=== PATIENT | male | born 1955 | race Asian ===

== ENCOUNTER 2020-01-23 11:55 | Outpatient (REF) | payer MEDICAID, SELFPAY ==
[2020-01-23 13:48] LABS: MANUAL DIFF FLAG NO
[2020-01-23 13:58] LABS: Basophils Absolute Auto 0.1 X10*3/uL (0.0-0.2); Basophils Percent Auto 0.8 % (0-2); Eosinophils Absolute Auto 0.2 X10*3/uL (0.0-0.4); Eosinophils Percent Auto 3.3 % (0-4); Hematocrit 46.4 % (42-52); Hemoglobin 16.5 g/dl (14.0-18.0); Imm Gran Abs Auto 0.02 X10*3/uL (0.00-0.03); Imm Gran Pct Auto 0.3 % (0.0-0.4); Lymphocytes Absolute Auto 1.7 X10*3/uL (1.2-4.9); Lymphocytes Percent Auto 23.2 % (20-40); Mean Corpuscular HGB Conc 35.6 g/dl (31.0-36.0); Mean Corpuscular Hemoglobin 32.9 pg (27.0-33.0); Mean Corpuscular Volume 92.6 fL (80-98); Monocytes Absolute Auto 0.7 X10*3/uL (0.1-1.2); Neutrophils Absolute Auto 4.6 X10*3/uL (2.0-8.3); Neutrophils Percent Auto 62.4 % (45-73); Platelet Count 217 X10*3/uL (160-400); Red Blood Count 5.01 X10*6/uL (4.60-5.80); Red Cell Distribution Width 13.3 % (11.0-16.0); White Blood Count 7.4 X10*3/uL (4.8-10.8)
[2020-01-23 14:39] LABS: Alanine Aminotransferase 35 U/L (0-40); Albumin Level 4.4 g/dL (3.5-5.0); Alkaline Phosphatase 49 U/L (39-117); Anion Gap 12 (12-20); Aspartate Amino Transferase 22 U/L (5-37); Bilirubin Total 0.4 mg/dL (0.0-1.0); Blood Urea Nitrogen 17 mg/dL (9-16); C Reactive Protein 0.29 mg/dL (< or = 0.50); Calcium 8.8 mg/dL (8.4-10.2); Carbon Dioxide 25 mmol/L (22-29); Chloride 107 mmol/L (96-108); Estimated Glomerular Filt Rate > 60; Glucose Random 89 mg/dL (60-115); Potassium 4.2 mmol/l (3.3-5.1); Sodium 140 mmol/L (135-145); Total Protein 7.3 g/dL (6.5-8.0)
[2020-01-23 15:12] LABS: Erythrocyte Sedimentation Rate 2 MM/HR (0-15)
== END 2020-01-23 11:56 | disposition home or self-care (01) ==
LOC: HO.LAB 11:55
PROVIDERS: PCP Internal Medicine; Visit Provider Student in an Organized Health Care Education/Training Program
DX: M06.00 Rheumatoid arthritis without rheumatoid factor, unspecified site (principal); Z79.899 Other long term (current) drug therapy
CPT/HCPCS: 36415; 80053; 85025; 85652; 86140

== ENCOUNTER → 2020-02-21 08:24 | Outpatient (BNVA) | payer MEDICAID, SELFPAY | PROVIDERS: PCP Internal Medicine; Referring Provider Internal Medicine; Visit Provider Student in an Organized Health Care Education/Training Program | DX: M06.00 Rheumatoid arthritis without rheumatoid factor, unspecified site (principal); Z79.899 Other long term (current) drug therapy | CPT/HCPCS: 99212 ==

== ENCOUNTER 2020-06-15 08:28 | Outpatient (REF) | payer MEDICAID, SELFPAY ==
[2020-06-15 09:36] LABS: MANUAL DIFF FLAG NO
[2020-06-15 09:38] LABS: Basophils Absolute Auto 0.1 X10*3/uL (0.0-0.2); Basophils Percent Auto 1.1 % (0-2); Eosinophils Absolute Auto 0.2 X10*3/uL (0.0-0.4); Eosinophils Percent Auto 3.1 % (0-4); Hematocrit 46.5 % (42-52); Hemoglobin 16.6 g/dl (14.0-18.0); Imm Gran Abs Auto 0.02 X10*3/uL (0.00-0.03); Imm Gran Pct Auto 0.3 % (0.0-0.4); Lymphocytes Absolute Auto 1.8 X10*3/uL (1.2-4.9); Lymphocytes Percent Auto 27.3 % (20-40); Mean Corpuscular HGB Conc 35.7 g/dl (31.0-36.0); Mean Corpuscular Hemoglobin 33.1 pg (27.0-33.0); Mean Corpuscular Volume 92.6 fL (80-98); Mean Platelet Volume 11.1 fL (9.4-12.4); Monocytes Absolute Auto 0.5 X10*3/uL (0.1-1.2); Monocytes Percent Auto 7.8 % (2-11); Neutrophils Absolute Auto 3.9 X10*3/uL (2.0-8.3); Neutrophils Percent Auto 60.4 % (45-73); Platelet Count 190 X10*3/uL (160-400); Red Blood Count 5.02 X10*6/uL (4.60-5.80); Red Cell Distribution Width 13.2 % (11.0-16.0); White Blood Count 6.5 X10*3/uL (4.8-10.8)
[2020-06-15 10:19] LABS: Alanine Aminotransferase 68 U/L (0-40); Albumin Level 4.4 g/dL (3.5-5.0); Alkaline Phosphatase 58 U/L (39-117); Anion Gap 15 (12-20); Aspartate Amino Transferase 40 U/L (5-37); Blood Urea Nitrogen 12 mg/dL (9-16); C Reactive Protein 0.28 mg/dL (< or = 0.50); Calcium 8.6 mg/dL (8.4-10.2); Carbon Dioxide 23 mmol/L (22-29); Chloride 106 mmol/L (96-108); Estimated Glomerular Filt Rate > 60; Glucose Random 218 mg/dL (60-115); Potassium 4.4 mmol/L (3.3-5.1); Sodium 140 mmol/L (135-145); Total Protein 7.3 g/dL (6.5-8.0)
[2020-06-15 10:27] LABS: Erythrocyte Sedimentation Rate 2 MM/HR (0-15)
== END 2020-06-15 08:29 | disposition home or self-care (01) ==
LOC: HO.LAB 08:28
PROVIDERS: PCP Student in an Organized Health Care Education/Training Program; Visit Provider Student in an Organized Health Care Education/Training Program
DX: M06.00 Rheumatoid arthritis without rheumatoid factor, unspecified site (principal)
CPT/HCPCS: 36415; 80053; 85025; 85652; 86140

== ENCOUNTER → 2020-06-19 08:19 | Outpatient (BNVA) | payer MEDICAID, SELFPAY | PROVIDERS: PCP Internal Medicine; Visit Provider Student in an Organized Health Care Education/Training Program | DX: M06.00 Rheumatoid arthritis without rheumatoid factor, unspecified site (principal); Z79.899 Other long term (current) drug therapy | CPT/HCPCS: 99212 ==

== ENCOUNTER 2020-09-04 15:23 | Outpatient (REF) | payer MEDICAID, SELFPAY ==
[2020-09-04 17:30] LABS: MANUAL DIFF FLAG NO
[2020-09-04 17:42] LABS: Basophils Absolute Auto 0.1 X10*3/uL (0.0-0.2); Basophils Percent Auto 0.9 % (0-2); Eosinophils Absolute Auto 0.3 X10*3/uL (0.0-0.4); Hemoglobin 16.3 g/dl (14.0-18.0); Imm Gran Abs Auto 0.02 X10*3/uL (0.00-0.03); Imm Gran Pct Auto 0.3 % (0.0-0.4); Lymphocytes Absolute Auto 2.3 X10*3/uL (1.2-4.9); Lymphocytes Percent Auto 28.6 % (20-40); Mean Corpuscular HGB Conc 34.7 g/dl (31.0-36.0); Mean Corpuscular Hemoglobin 31.7 pg (27.0-33.0); Mean Corpuscular Volume 91.3 fL (80-98); Mean Platelet Volume 12.2 fL (9.4-12.4); Monocytes Absolute Auto 0.7 X10*3/uL (0.1-1.2); Monocytes Percent Auto 9.4 % (2-11); Neutrophils Absolute Auto 4.5 X10*3/uL (2.0-8.3); Neutrophils Percent Auto 56.8 % (45-73); Platelet Count 187 X10*3/uL (160-400); Red Blood Count 5.15 X10*6/uL (4.60-5.80); Red Cell Distribution Width 13.2 % (11.0-16.0); White Blood Count 7.9 X10*3/uL (4.8-10.8)
[2020-09-04 18:01] LABS: Alanine Aminotransferase 53 U/L (0-40); Albumin Level 4.3 g/dL (3.5-5.0); Alkaline Phosphatase 56 U/L (39-117); Anion Gap 14 (12-20); Aspartate Amino Transferase 32 U/L (5-37); Bilirubin Total 0.5 mg/dL (0.0-1.0); Blood Urea Nitrogen 15 mg/dL (9-16); C Reactive Protein 0.21 mg/dL (< or = 0.50); Calcium 9.2 mg/dL (8.4-10.2); Carbon Dioxide 25 mmol/L (22-29); Chloride 105 mmol/L (96-108); Estimated Glomerular Filt Rate > 60; Glucose Random 216 mg/dL (60-115); Potassium 4.1 mmol/L (3.3-5.1); Sodium 140 mmol/L (135-145); Total Protein 7.4 g/dL (6.5-8.0)
[2020-09-04 18:43] LABS: Erythrocyte Sedimentation Rate 4 MM/HR (0-15)
== END 2020-09-04 15:24 | disposition home or self-care (01) ==
LOC: HO.LAB 15:23
PROVIDERS: PCP Internal Medicine; Visit Provider Student in an Organized Health Care Education/Training Program
DX: M06.00 Rheumatoid arthritis without rheumatoid factor, unspecified site (principal); Z79.899 Other long term (current) drug therapy
CPT/HCPCS: 36415; 80053; 85025; 85652; 86140; 99212

== ENCOUNTER → 2020-12-11 13:20 | Outpatient (BNVA) | payer MEDICAID, SELFPAY | PROVIDERS: Visit Provider Student in an Organized Health Care Education/Training Program ==

== ENCOUNTER → 2021-03-11 09:51 | Outpatient (BNVA) | payer MEDICAID, SELFPAY | PROVIDERS: PCP Internal Medicine; Visit Provider Nurse Practitioner Family | DX: M06.00 Rheumatoid arthritis without rheumatoid factor, unspecified site (principal); R74.8 Abnormal levels of other serum enzymes | CPT/HCPCS: 99212 ==

== ENCOUNTER 2021-04-22 07:56 | Outpatient (REF) | payer MEDICAID, SELFPAY ==
--- NOTE | ~2021-04-22 | US_ITS ---
EXAMINATION: US ABDOMEN COMPLETE CLINICAL INFORMATION: Abnormal levels of other serum enzymes. COMPARISON: None TECHNIQUE: Real-time imaging of the abdominal viscera. FINDINGS: PANCREAS: The head and body of the pancreas are normal. The tail is not well visualized due to bowel gas. ABDOMINAL AORTA: The proximal, mid, and distal segments are normal in caliber. INFERIOR VENA CAVA: Visualized portions are normal. LIVER: Liver echotexture is increased. The liver is enlarged. The liver contour is normal. There is a 1.2 x 1 x 1.3 cm cyst in the left lobe of the liver. There is a hypoechoic area adjacent to the gallbladder, probably representing focal fatty sparing. There is no intrahepatic biliary duct dilatation seen. GALLBLADDER: Normal. The gallbladder is physiologically distended without evidence of stones, sludge, polyps, wall thickening or pericholecystic fluid. COMMON BILE DUCT: Normal in caliber measuring 0.4 cm in diameter. RIGHT KIDNEY: Normal. No hydronephrosis. No renal calculi or focal parenchymal lesions. The kidney measures 9.8 cm in maximum dimension. LEFT KIDNEY: There is a minimally complex cyst in the upper to midpole with single thin septation measuring 3.7 x 3.5 x 3.7 cm. There is a 1.6 x 1.1 x 1.6 cm simple cyst in the upper to midpole. No hydronephrosis or renal calculi. The kidney measures 11.0 cm in maximum dimension. SPLEEN: Normal. The spleen measures 10.0 cm in maximum dimension. FREE FLUID: None. US/US abdomen complete IMPRESSION: Enlarged echogenic liver probably representing fatty infiltration. Small simple-appearing cyst in the left lobe of the liver. Left renal cysts. Limited visualization of the tail of the pancreas.
== END 2021-04-22 07:57 | disposition home or self-care (01) ==
LOC: HO.US 07:56
PROVIDERS: Visit Provider Nurse Practitioner Family
DX: R74.8 Abnormal levels of other serum enzymes (principal)
CPT/HCPCS: 76700

== ENCOUNTER 2021-07-01 10:58 | Outpatient (REF) | payer MEDICAID, SELFPAY ==
[2021-07-01 11:48] LABS: MANUAL DIFF FLAG NO
[2021-07-01 12:47] LABS: Basophils Absolute Auto 0.1 X10*3/uL (0.0-0.2); Basophils Percent Auto 0.9 % (0-2); Eosinophils Absolute Auto 0.2 X10*3/uL (0.0-0.4); Eosinophils Percent Auto 3.1 % (0-4); Hematocrit 49.6 % (42.0-52.0); Hemoglobin 17.3 g/dl (14.0-18.0); Imm Gran Abs Auto 0.02 X10*3/uL (0.00-0.03); Imm Gran Pct Auto 0.3 % (0.0-0.4); Lymphocytes Absolute Auto 1.4 X10*3/uL (1.2-4.9); Lymphocytes Percent Auto 22.4 % (20-40); Mean Corpuscular HGB Conc 34.9 g/dl (31.0-36.0); Mean Corpuscular Hemoglobin 31.9 pg (27.0-33.0); Mean Corpuscular Volume 91.3 fL (80.0-98.0); Mean Platelet Volume 11.8 fL (9.4-12.4); Monocytes Absolute Auto 0.5 X10*3/uL (0.1-1.2); Monocytes Percent Auto 7.8 % (2-11); Neutrophils Absolute Auto 4.2 x10*3/uL (2.0-8.3); Neutrophils Percent Auto 65.5 % (45-73); Platelet Count 195 X10*3/uL (160-400); Red Blood Count 5.43 X10*6/uL (4.60-5.80); Red Cell Distribution Width 12.9 % (11.0-16.0); White Blood Count 6.4 X10*3/uL (4.8-10.8)
[2021-07-01 13:23] LABS: Erythrocyte Sedimentation Rate 2 MM/HR (0-15)
[2021-07-01 13:25] LABS: Alanine Aminotransferase 65 U/L (0-40); Albumin Level 4.5 g/dL (3.5-5.0); Alkaline Phosphatase 57 U/L (39-117); Anion Gap 13 (12-20); Aspartate Amino Transferase 41 U/L (5-37); Bilirubin Total 0.8 mg/dL (0.0-1.0); Blood Urea Nitrogen 13 mg/dL (9-16); Calcium 9.5 mg/dL (8.4-10.2); Carbon Dioxide 24 mmol/L (22-29); Chloride 104 mmol/L (96-108); Estimated Glomerular Filt Rate > 60; Glucose Random 355 mg/dL (60-115); Potassium 4.3 mmol/L (3.3-5.1); Sodium 137 mmol/L (135-145); Total Protein 8.2 g/dL (6.5-8.0)
== END 2021-07-01 10:59 | disposition home or self-care (01) ==
LOC: HO.LAB 10:58
PROVIDERS: PCP Internal Medicine; Visit Provider Nurse Practitioner Family
DX: M06.00 Rheumatoid arthritis without rheumatoid factor, unspecified site (principal); R74.8 Abnormal levels of other serum enzymes
CPT/HCPCS: 36415; 80053; 85025; 85652; 86140; 99212

== ENCOUNTER 2021-08-23 07:58 | Outpatient (REF) | payer MEDICAID, SELFPAY ==
[2021-08-23 09:00] LABS: MANUAL DIFF FLAG NO
[2021-08-23 09:12] LABS: Basophils Absolute Auto 0.1 X10*3/uL (0.0-0.2); Basophils Percent Auto 0.9 % (0-2); Eosinophils Absolute Auto 0.3 X10*3/uL (0.0-0.4); Eosinophils Percent Auto 4.4 % (0-4); Hematocrit 48.9 % (42.0-52.0); Imm Gran Abs Auto 0.01 X10*3/uL (0.00-0.03); Imm Gran Pct Auto 0.2 % (0.0-0.4); Lymphocytes Absolute Auto 1.6 X10*3/uL (1.2-4.9); Lymphocytes Percent Auto 25.6 % (20-40); Mean Corpuscular HGB Conc 34.8 g/dl (31.0-36.0); Mean Corpuscular Hemoglobin 31.4 pg (27.0-33.0); Mean Corpuscular Volume 90.2 fL (80.0-98.0); Mean Platelet Volume 11.2 fL (9.4-12.4); Monocytes Absolute Auto 0.5 X10*3/uL (0.1-1.2); Monocytes Percent Auto 8.4 % (2-11); Neutrophils Absolute Auto 3.9 x10*3/uL (2.0-8.3); Neutrophils Percent Auto 60.5 % (45-73); Platelet Count 192 X10*3/uL (160-400); Red Blood Count 5.42 X10*6/uL (4.60-5.80); Red Cell Distribution Width 12.9 % (11.0-16.0); White Blood Count 6.4 X10*3/uL (4.8-10.8)
[2021-08-23 09:21] LABS: INTERNATIONAL NORM RATIO 1.1 (0.9-1.1); Prothrombin Time 12.2 SEC (9.9-13.0)
[2021-08-23 09:29] LABS: Estimated Average Glucose 180 mg/dL; Hemoglobin A1c % 7.9 %
[2021-08-23 09:39] LABS: Alanine Aminotransferase 49 U/L (0-40); Albumin Level 4.5 g/dL (3.5-5.0); Alkaline Phosphatase 55 U/L (39-117); Anion Gap 11 (12-20); Aspartate Amino Transferase 27 U/L (5-37); Bilirubin Total 0.6 mg/dL (0.0-1.0); Blood Urea Nitrogen 16 mg/dL (9-16); C Reactive Protein 0.52 mg/dL (< or = 0.50); Calcium 9.2 mg/dL (8.4-10.2); Carbon Dioxide 26 mmol/L (22-29); Chloride 107 mmol/L (96-108); Estimated Glomerular Filt Rate > 60; Gamma Glutamyl Transpeptidase 48 U/L (11-51); Glucose Random 165 mg/dL (60-115); Potassium 4.4 mmol/L (3.3-5.1); Sodium 140 mmol/L (135-145); Total Protein 7.7 g/dL (6.5-8.0)
[2021-08-23 09:50] LABS: Ferritin 214 ng/mL (20-250)
[2021-08-23 09:53] LABS: HBS Num1 30.44 mIU/mL (0-7.99); HBsAGNum1 0.19 S/CO (0.00-0.99); HIV AB/AG Nonreactive (Nonreactive); HIV Num 1 0.06 S/CO (0.00-0.99); Hepatitis A Antibody IgM 0.35 Index (0-0.79); Hepatitis B Surface Antigen Negative (Negative); ~HepC Num1 0.18 S/CO (0.00-0.79); ~Hepatitis A Antibody IgM Nonreactive (Nonreactive); ~Hepatitis B Surface Antibody REACTIVE (Nonreactive); ~Hepatitis C Antibody Nonreactive (Nonreactive)
[2021-08-23 10:05] LABS: Erythrocyte Sedimentation Rate 4 MM/HR (0-15)
[2021-08-23 11:11] LABS: HBc Num3 1.56 S/CO; Hepatitis B Core Antibody Reactive (Nonreactive)
[2021-08-25 13:56] LABS: Anti Nuclear Antibody Screen NEGATIVE (NEGATIVE)
[2021-08-26 13:16] LABS: Alpha Fetoprotein 2.9 ng/mL (<6.1)
[2021-08-27 13:37] LABS: Mitochondrial Antibodies NEGATIVE (NEGATIVE)
[2021-08-28 14:02] LABS: Smooth Muscle Antibody <20 U (<20)
== END 2021-08-23 07:59 | disposition home or self-care (01) ==
LOC: HO.LAB 07:58
PROVIDERS: Nurse Practitioner Family; PCP Internal Medicine; Referring Provider Internal Medicine; Visit Provider Nurse Practitioner
DX: Z11.4 Encounter for screening for human immunodeficiency virus [HIV] (principal); R74.8 Abnormal levels of other serum enzymes; M06.00 Rheumatoid arthritis without rheumatoid factor, unspecified site
CPT/HCPCS: 36415; 80053; 82105; 82728; 82977; 83036; 85025; 85610; 85652; 86015; 86038; 86039; 86140; 86255; 86256; 86704; 86706; 86709; 86803; 87340; 87389; 99202

== ENCOUNTER 2021-09-04 09:19 | Outpatient (REF) | payer MEDICAID, SELFPAY ==
--- NOTE | ~2021-09-04 | US_ITS ---
EXAMINATION: US COMPLETE ABDOMEN WITH LIVER ELASTOGRAPHY CLINICAL INFORMATION: Abnormal liver function test. COMPARISON: None. TECHNIQUE: Real-time imaging of the abdominal viscera. Noninvasive ultrasound liver fibrosis assessment is performed using Jairo ElastPQ point quantification shear wave elastography (2D-SWE) with a C5-2 MHz transducer. Multiple elastography samples are obtained. FINDINGS: PANCREAS: Normal. The visualized pancreatic head and body are normal in appearance. The remainder of the pancreas is obscured from visualization by the overlying bowel gas. ABDOMINAL AORTA: The proximal, middle, and distal aortic segments are normal in caliber. INFERIOR VENA CAVA: Visualized portions are normal. LIVER: The liver demonstrates normal size, contour and increased echogenicity with areas of focal fatty sparing in the gallbladder. No focal lesion or intrahepatic biliary duct dilatation. The right lobe measures 18.6 cm in length. The left lobe measures 10.5 cm in length. Portal flow is hepatopedal. Shear wave liver elastography median stiffness is 1.69 m/s (reference: normal median stiffness is 1.3 m/s or less). IQR/median stiffness to assess sampling precision is 0.04 (reference: good quality data set is IQR/median stiffness of 0.15 or less). GALLBLADDER: There are focal small echogenic areas along the gallbladder wall suggestive of adenomyomatosis. The gallbladder is physiologically distended without evidence of stones, sludge, polyps, wall thickening or pericholecystic fluid. COMMON BILE DUCT: Normal in caliber measuring 0.4 cm in diameter. RIGHT KIDNEY: Normal. No hydronephrosis. No renal calculi or focal parenchymal lesions. The kidney measures 9.8 cm in maximum dimension. LEFT KIDNEY: There is an anechoic cyst in midpole measuring 2.2 x 1.3 x 1.5 cm and the largest lower pole cyst measures 3.4 x 3.8 x 3.4 cm. No hydronephrosis. No renal calculi or focal parenchymal lesions. The kidney measures 10.6 cm in maximum dimension. SPLEEN: Normal. The spleen measures 11.1 cm in maximum dimension. FREE FLUID: None. US/US abdomen comp w elastography IMPRESSION: 1. Hepatic steatosis with areas of focal fatty sparing of the gallbladder. Focal adenomyomatosis along the inner gallbladder wall. 2. Liver elastography: Median liver stiffness measures 1.69 m/s corresponding to cACLD (ruled out). REFERENCE: Society of Radiologists in Ultrasound Liver Stiffness Thresholds (2020): LIVER STIFFNESS THRESHOLDS: *Liver Stiffness equal or less than 1.3 m/s: High probability of being normal. *Liver Stiffness less than 1.7 m/s: In the absence of other known clinical signs, rules out compensated advanced chronic liver disease. *Liver Stiffness 1.7-2.1 m/s: Suggestive of compensated advanced chronic liver disease but need further test for confirmation. *Liver Stiffness over 2.1 m/s: Rules in compensated advanced chronic liver disease. *Liver Stiffness over 2.4 m/s: Suggestive of clinically significant portal hypertension. QUALITY OF DATA SET: *IQR/Median value equal or less than 0.15 implies a quality data set. *IQR/Median value over 0.15 implies a poor quality data set. SIGNIFICANT CHANGE FROM PRIOR EXAM: Significant change if liver stiffness measurement is 10% or greater from prior exam. OTHER CONSIDERATIONS: The stage of liver fibrosis may be overestimated in the setting of acute hepatitis, liver inflammation, elevated liver function tests, hepatic vascular congestion, obstructive cholestasis, non-fasting state, and infiltrative diseases such as amyloidosis and lymphoma. In some patients with NAFLD, the liver stiffness thresholds for compensated advanced chronic liver disease may be lower. In causes other than viral hepatitis and NAFLD, liver stiffness thresholds are not well established.
== END 2021-09-04 09:20 | disposition home or self-care (01) ==
LOC: HO.US 09:19
PROVIDERS: Visit Provider Nurse Practitioner
DX: R74.8 Abnormal levels of other serum enzymes (principal)
CPT/HCPCS: 76705; 76981

== ENCOUNTER → 2021-09-12 07:51 | Outpatient (BNVA) | payer MEDICAID, SELFPAY | PROVIDERS: PCP Internal Medicine; Visit Provider Nurse Practitioner | DX: R76.8 Other specified abnormal immunological findings in serum (principal); R74.8 Abnormal levels of other serum enzymes | CPT/HCPCS: 99212 ==

== ENCOUNTER → 2021-10-01 10:26 | Outpatient (BNVA) | payer MEDICAID, SELFPAY | PROVIDERS: PCP Internal Medicine; Visit Provider Nurse Practitioner Family | DX: M06.00 Rheumatoid arthritis without rheumatoid factor, unspecified site (principal); R74.8 Abnormal levels of other serum enzymes; Z79.899 Other long term (current) drug therapy | CPT/HCPCS: 99212 ==

== ENCOUNTER 2021-12-17 08:23 | Outpatient (REF) | payer MEDICAID, SELFPAY ==
--- NOTE | ~2021-12-17 | XR_ITS ---
EXAMINATION: XR HAND, BILATERAL CLINICAL INFORMATION: Rheumatoid arthritis without rheumatoid factor. COMPARISON: None TECHNIQUE: PA, lateral, and oblique views of the left hand. FINDINGS: RIGHT HAND: Interphalangeal Joints: IP Joint of The Thumb: There are marginal osteophytes and mild joint space narrowing indicative of osteoarthritis. Third and Fourth DIP Joint: Small subchondral cyst with minimal capsular calcification without joint space narrowing compatible with mild arthrosis, likely osteoarthritis. Metacarpophalangeal Joints: There is a small marginal osteophyte with subchondral cystic change without joint space narrowing indicative of mild osteoarthritis. Third MCP Joint: Small subchondral cystic change. The bone and joints of the wrist are unremarkable. Minimal nonspecific calcification radial to the base of the middle phalanx of the middle finger, likely dystrophic/posttraumatic without clinical significance. There are no erosions. LEFT HAND: Interphalangeal Joints: IP Joint of The Thumb: There are marginal osteophytes and subchondral cystic change without joint space narrowing indicative of mild osteoarthritis. Metacarpophalangeal Joints: First and Second MCP Joints: Small marginal osteophytes without joint space narrowing indicative of mild osteoarthritis. 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 No erosions. XR/XR hand LT min 3V IMPRESSION: RIGHT HAND: Mild osteoarthritis. No radiographic signs of inflammatory arthropathy. LEFT HAND: Mild osteoarthritis. No signs of inflammatory arthropathy.
--- NOTE | ~2021-12-17 | XR_ITS ---
EXAMINATION: XR HAND, BILATERAL CLINICAL INFORMATION: Rheumatoid arthritis without rheumatoid factor. COMPARISON: None TECHNIQUE: PA, lateral, and oblique views of the left hand. FINDINGS: RIGHT HAND: Interphalangeal Joints: IP Joint of The Thumb: There are marginal osteophytes and mild joint space narrowing indicative of osteoarthritis. Third and Fourth DIP Joint: Small subchondral cyst with minimal capsular calcification without joint space narrowing compatible with mild arthrosis, likely osteoarthritis. Metacarpophalangeal Joints: There is a small marginal osteophyte with subchondral cystic change without joint space narrowing indicative of mild osteoarthritis. Third MCP Joint: Small subchondral cystic change. The bone and joints of the wrist are unremarkable. Minimal nonspecific calcification radial to the base of the middle phalanx of the middle finger, likely dystrophic/posttraumatic without clinical significance. There are no erosions. LEFT HAND: Interphalangeal Joints: IP Joint of The Thumb: There are marginal osteophytes and subchondral cystic change without joint space narrowing indicative of mild osteoarthritis. Metacarpophalangeal Joints: First and Second MCP Joints: Small marginal osteophytes without joint space narrowing indicative of mild osteoarthritis. 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 No erosions. XR/XR hand wrist RT IMPRESSION: RIGHT HAND: Mild osteoarthritis. No radiographic signs of inflammatory arthropathy. LEFT HAND: Mild osteoarthritis. No signs of inflammatory arthropathy.
== END 2021-12-17 08:24 | disposition home or self-care (01) ==
LOC: HO.XRAY 08:23
PROVIDERS: PCP Internal Medicine; Visit Provider Nurse Practitioner Family
DX: M25.431 Effusion, right wrist (principal); M06.00 Rheumatoid arthritis without rheumatoid factor, unspecified site; R74.8 Abnormal levels of other serum enzymes
CPT/HCPCS: 36415; 73110; 73130; 80053; 85025; 85652; 86140; 99212

== ENCOUNTER 2021-12-17 09:37 | Outpatient (REF) | payer MEDICAID, SELFPAY ==
[2021-12-17 10:27] LABS: MANUAL DIFF FLAG NO
[2021-12-17 10:45] LABS: Basophils Absolute Auto 0.1 X10*3/uL (0.0-0.2); Eosinophils Absolute Auto 0.3 X10*3/uL (0.0-0.4); Eosinophils Percent Auto 4.8 % (0-4); Hematocrit 48.3 % (42.0-52.0); Hemoglobin 17.1 g/dl (14.0-18.0); Imm Gran Abs Auto 0.03 X10*3/uL (0.00-0.03); Imm Gran Pct Auto 0.4 % (0.0-0.4); Lymphocytes Absolute Auto 1.7 X10*3/uL (1.2-4.9); Mean Corpuscular HGB Conc 35.4 g/dl (31.0-36.0); Mean Corpuscular Hemoglobin 30.9 pg (27.0-33.0); Mean Corpuscular Volume 87.2 fL (80.0-98.0); Mean Platelet Volume 11.4 fL (9.4-12.4); Monocytes Absolute Auto 0.6 X10*3/uL (0.1-1.2); Neutrophils Absolute Auto 4.3 x10*3/uL (2.0-8.3); Neutrophils Percent Auto 60.8 % (45-73); Platelet Count 168 X10*3/uL (160-400); Red Blood Count 5.54 X10*6/uL (4.60-5.80); Red Cell Distribution Width 13.6 % (11.0-16.0); White Blood Count 7.1 X10*3/uL (4.8-10.8)
[2021-12-17 11:06] LABS: Alanine Aminotransferase 33 U/L (0-40); Albumin Level 4.4 g/dL (3.5-5.0); Alkaline Phosphatase 54 U/L (39-117); Anion Gap 14 (12-20); Aspartate Amino Transferase 22 U/L (5-37); Bilirubin Total 0.8 mg/dL (0.0-1.0); Blood Urea Nitrogen 12 mg/dL (9-16); C Reactive Protein 0.25 mg/dL (< or = 0.50); Calcium 8.9 mg/dL (8.4-10.2); Carbon Dioxide 24 mmol/L (22-29); Chloride 108 mmol/L (96-108); Estimated Glomerular Filt Rate > 60; Glucose Random 132 mg/dL (60-115); Potassium 4.1 mmol/L (3.3-5.1); Sodium 142 mmol/L (135-145); Total Protein 7.9 g/dL (6.5-8.0)
[2021-12-17 11:49] LABS: Erythrocyte Sedimentation Rate 2 MM/HR (0-15)
== END 2021-12-17 09:38 | disposition home or self-care (01) ==
LOC: HO.10HDL 09:37
PROVIDERS: Visit Provider Nurse Practitioner Family
DX: M06.00 Rheumatoid arthritis without rheumatoid factor, unspecified site (principal)
CPT/HCPCS: 36415; 80053; 85025; 85652; 86140

== ENCOUNTER 2022-03-07 09:01 | Outpatient (REF) | payer MEDICAID, SELFPAY ==
[2022-03-07 10:11] LABS: Alanine Aminotransferase 59 U/L (0-40); Albumin Level 4.5 g/dL (3.5-5.0); Alkaline Phosphatase 58 U/L (39-117); Aspartate Amino Transferase 28 U/L (5-37); Bilirubin Direct 0.2 mg/dL (0.0-0.5); Bilirubin Total 0.7 mg/dL (0.0-1.0); Total Protein 7.6 g/dL (6.5-8.0)
[2022-03-10 13:37] LABS: Alpha Fetoprotein 3.2 ng/mL (<6.1)
== END 2022-03-07 09:02 | disposition home or self-care (01) ==
LOC: HO.LAB 09:01
PROVIDERS: Visit Provider Nurse Practitioner
DX: K75.81 Nonalcoholic steatohepatitis (NASH) (principal); R76.8 Other specified abnormal immunological findings in serum
CPT/HCPCS: 36415; 80076; 82105; 99212

== ENCOUNTER → 2022-03-24 08:27 | Outpatient (BNVA) | payer MEDICAID, SELFPAY | PROVIDERS: PCP Internal Medicine; Referring Provider Internal Medicine; Visit Provider Nurse Practitioner Family | DX: M06.00 Rheumatoid arthritis without rheumatoid factor, unspecified site (principal); R74.8 Abnormal levels of other serum enzymes | CPT/HCPCS: 36415; 80053; 85025; 85652; 86140; 99212 ==

== ENCOUNTER 2022-03-24 09:34 | Outpatient (REF) | payer MEDICAID, SELFPAY ==
[2022-03-24 10:55] LABS: MANUAL DIFF FLAG NO
[2022-03-24 11:02] LABS: Basophils Absolute Auto 0.1 X10*3/uL (0.0-0.2); Basophils Percent Auto 0.8 % (0-2); Eosinophils Absolute Auto 0.3 X10*3/uL (0.0-0.4); Eosinophils Percent Auto 3.4 % (0-4); Hematocrit 48.4 % (42.0-52.0); Hemoglobin 17.2 g/dl (14.0-18.0); Imm Gran Abs Auto 0.03 X10*3/uL (0.00-0.03); Imm Gran Pct Auto 0.4 % (0.0-0.4); Lymphocytes Absolute Auto 1.8 X10*3/uL (1.2-4.9); Lymphocytes Percent Auto 22.3 % (20-40); Mean Corpuscular HGB Conc 35.5 g/dl (31.0-36.0); Mean Corpuscular Hemoglobin 32.1 pg (27.0-33.0); Mean Corpuscular Volume 90.5 fL (80.0-98.0); Mean Platelet Volume 11.3 fL (9.4-12.4); Monocytes Absolute Auto 0.7 X10*3/uL (0.1-1.2); Monocytes Percent Auto 8.5 % (2-11); Neutrophils Absolute Auto 5.1 x10*3/uL (2.0-8.3); Neutrophils Percent Auto 64.6 % (45-73); Platelet Count 176 X10*3/uL (160-400); Red Blood Count 5.35 X10*6/uL (4.60-5.80); Red Cell Distribution Width 12.7 % (11.0-16.0); White Blood Count 7.9 X10*3/uL (4.8-10.8)
[2022-03-24 11:34] LABS: Alanine Aminotransferase 54 U/L (0-40); Albumin Level 4.5 g/dL (3.5-5.0); Alkaline Phosphatase 63 U/L (39-117); Anion Gap 14 (12-20); Aspartate Amino Transferase 29 U/L (5-37); Bilirubin Total 0.9 mg/dL (0.0-1.0); Blood Urea Nitrogen 14 mg/dL (9-16); C Reactive Protein 0.45 mg/dL (< or = 0.50); Calcium 9.5 mg/dL (8.4-10.2); Carbon Dioxide 26 mmol/L (22-29); Chloride 105 mmol/L (96-108); Estimated Glomerular Filt Rate > 60; Glucose Random 138 mg/dL (60-115); Potassium 4.2 mmol/L (3.3-5.1); Sodium 141 mmol/L (135-145); Total Protein 7.7 g/dL (6.5-8.0)
[2022-03-24 11:51] LABS: Erythrocyte Sedimentation Rate 5 MM/HR (0-15)
== END 2022-03-24 09:35 | disposition home or self-care (01) ==
LOC: HO.10HDL 09:34
PROVIDERS: Visit Provider Nurse Practitioner Family
DX: M06.00 Rheumatoid arthritis without rheumatoid factor, unspecified site (principal)
CPT/HCPCS: 36415; 80053; 85025; 85652; 86140

== ENCOUNTER 2022-04-16 09:37 | Outpatient (REF) | payer MEDICAID, SELFPAY ==
--- NOTE | ~2022-04-16 | US_ITS ---
EXAMINATION: US ABDOMEN LIMITED CLINICAL INFORMATION: LANE. COMPARISON: US abdomen complete 04/22/2021. TECHNIQUE: Real-time imaging of the right upper quadrant abdominal viscera. FINDINGS: PANCREAS: Normal. LIVER: Prominent enlarged measuring up to 18.7 cm The liver contour is normal. Left lobe cyst measures 12 mm There is no intrahepatic biliary duct dilatation seen. Diffuse increased echogenicity consistent with fatty infiltration GALLBLADDER: Normal. The gallbladder is physiologically distended without evidence of stones, sludge, polyps, wall thickening or pericholecystic fluid. COMMON BILE DUCT: Normal in caliber measuring 0.7 cm in diameter. RIGHT KIDNEY: Normal. No hydronephrosis. No renal calculi or focal parenchymal lesions. The kidney measures 9.4 cm in maximum dimension. FREE FLUID: None. US/US abdomen limited IMPRESSION: Hepatomegaly changes of diffuse hepatic steatosis. No gallstones
== END 2022-04-16 09:38 | disposition home or self-care (01) ==
LOC: HO.US 09:37
PROVIDERS: PCP Internal Medicine; Visit Provider Nurse Practitioner
DX: K75.81 Nonalcoholic steatohepatitis (NASH) (principal)
CPT/HCPCS: 76705

== ENCOUNTER → 2022-07-18 07:20 | Outpatient (BNVA) | payer MEDICAID, SELFPAY | PROVIDERS: PCP Internal Medicine; Visit Provider Nurse Practitioner Family | DX: M06.00 Rheumatoid arthritis without rheumatoid factor, unspecified site (principal); R74.8 Abnormal levels of other serum enzymes | CPT/HCPCS: 99212 ==

== ENCOUNTER 2022-07-18 08:32 | Outpatient (REF) | payer MEDICARE, MEDICAID, SELFPAY ==
[2022-07-18 10:36] LABS: MANUAL DIFF FLAG NO
[2022-07-18 10:57] LABS: Basophils Absolute Auto 0.1 X10*3/uL (0.0-0.2); Basophils Percent Auto 1.1 % (0-2); Eosinophils Absolute Auto 0.3 X10*3/uL (0.0-0.4); Eosinophils Percent Auto 4.6 % (0-4); Hematocrit 49.8 % (42.0-52.0); Hemoglobin 17.5 g/dl (14.0-18.0); Imm Gran Abs Auto 0.02 X10*3/uL (0.00-0.03); Imm Gran Pct Auto 0.3 % (0.0-0.4); Lymphocytes Absolute Auto 1.8 X10*3/uL (1.2-4.9); Lymphocytes Percent Auto 24.1 % (20-40); Mean Corpuscular HGB Conc 35.1 g/dl (31.0-36.0); Mean Corpuscular Hemoglobin 31.8 pg (27.0-33.0); Mean Corpuscular Volume 90.4 fL (80.0-98.0); Mean Platelet Volume 11.6 fL (9.4-12.4); Monocytes Absolute Auto 0.6 X10*3/uL (0.1-1.2); Monocytes Percent Auto 8.4 % (2-11); Neutrophils Absolute Auto 4.5 x10*3/uL (2.0-8.3); Neutrophils Percent Auto 61.5 % (45-73); Platelet Count 208 X10*3/uL (160-400); Red Blood Count 5.51 X10*6/uL (4.60-5.80); Red Cell Distribution Width 12.7 % (11.0-16.0); White Blood Count 7.3 X10*3/uL (4.8-10.8)
[2022-07-18 11:43] LABS: Erythrocyte Sedimentation Rate 2 MM/HR (0-15)
[2022-07-18 11:56] LABS: Alanine Aminotransferase 55 U/L (0-40); Albumin Level 4.4 g/dL (3.5-5.0); Alkaline Phosphatase 58 U/L (39-117); Anion Gap 15 (12-20); Aspartate Amino Transferase 33 U/L (5-37); Bilirubin Total 0.7 mg/dL (0.0-1.0); Blood Urea Nitrogen 12 mg/dL (9-16); C Reactive Protein 0.21 mg/dL (< or = 0.50); Calcium 8.8 mg/dL (8.4-10.2); Carbon Dioxide 19 mmol/L (22-29); Chloride 109 mmol/L (96-108); Estimated Glomerular Filt Rate > 60; Glucose Random 188 mg/dL (60-115); Potassium 4.4 mmol/L (3.3-5.1); Sodium 139 mmol/L (135-145); Total Protein 7.5 g/dL (6.5-8.0)
== END 2022-07-18 08:33 | disposition home or self-care (01) ==
LOC: HO.10HDL 08:32
PROVIDERS: Visit Provider Nurse Practitioner Family
DX: M06.00 Rheumatoid arthritis without rheumatoid factor, unspecified site (principal)
CPT/HCPCS: 36415; 80053; 85025; 85652; 86140

== ENCOUNTER → 2022-09-03 08:29 | Outpatient (BNVA) | payer MEDICARE, MEDICAID, SELFPAY | PROVIDERS: PCP Internal Medicine; Visit Provider Nurse Practitioner | DX: K75.81 Nonalcoholic steatohepatitis (NASH) (principal); R76.8 Other specified abnormal immunological findings in serum; M06.00 Rheumatoid arthritis without rheumatoid factor, unspecified site | CPT/HCPCS: 99212 ==

== ENCOUNTER 2022-12-22 08:11 | Outpatient (AMB) | payer MEDICARE, MEDICAID, SELFPAY ==
--- NOTE | 2022-12-22 08:13 | MHC.OFFVIS ---
Intake Vital Signs 12/22/22 08:14 Height 5 ft 6 in Weight 157 lb 3.033 oz BMI 25.4 BP 168/100 H Blood Pressure Location Rt brachial Position Sitting Pulse 63 Pulse Source Pulse Oximeter Temp 98 F Temp Source Skin Pulse Oximetry (%) 97 Intake Visit Reasons: rheumatoid arthritis Intake Note: Patoent here to follow up on RA. Environmental Associate Required: No Accompanied by: Self / Same As Patient Allergies ibuprofen Allergy (Severe, Verified 12/22/22 08:14) stomach ulcer Medication List - Last Reconciled 12/22/22 by Jorge Lyle MD alcohol swabs (Alcohol Prep Pads) pad topical amlodipine 2.5 mg PO DAILY atorvastatin 10 mg PO DAILY blood sugar diagnostic (FreeStyle Lite Strips) As directed glipizide ER 2.5 mg PO DAILY lancets (FreeStyle Lancets) As directed lisinopril 40 mg PO DAILY sitagliptin phosphate (Januvia) 100 mg PO DAILY sulfasalazine 500 mg PO BID HPI HPI Comments History of Present Illness Details 67 yoM presents for follow-up of seronegative rheumatoid arthritis. He was last seen by Roxana Chávez 07/2022. On sulfasalzine 1 gram daily. Patient is doing well overall. No new complaints. Over the last year he has developed some swelling on the dorsal aspect of his right wrist. It does not hurt. Sometimes painful when he pushes on his right hand. FOR[facility]LY [facility], [facility] Medical History Seronegative rheumatoid arthritis Surgical History No history of previous surgery Social History Alcohol intake: current Alcohol intake frequency: holidays/special occasions only Patient Tobacco Use Status: Former Tobacco user Years Smoked: quit 10-12 years ago e-Cigarette/Vaping Use: Never Used Review of Systems Musc Denies arthralgias, Reports joint swelling and Denies stiffness Physical Exam Vital Signs: Last Vital Signs Temp 98 F 12/22/22 08:14 Pulse 63 12/22/22 08:14 BP 168/100 H 12/22/22 08:14 Pulse Ox 97 12/22/22 08:14 BMI result Body Mass Index 25.4 Const General: cooperative, healthy appearing and comfortable Nutritional Appearance: average body habitus Orientation/consciousness: patient oriented x3 Limitations: no limitations HEENT Head: Yes normocephalic and Yes atraumatic Mouth: moist mucous membranes Resp Effort & Inspection: normal respiratory effort and able to speak in complete sentences Auscultation: clear to auscultation bilaterally Cardio Rate: regular rate Rhythm: regular rhythm Skin General skin exam: no rashes or lesions noted Neuro General: patient oriented x3 Extrem Other: Cystic swelling on the dorsal aspect of the right wrist, not warm or tender No active synovitis Normal nailfold capillaroscopy Assessment & Plan Assessment & Plan (1) Seronegative rheumatoid arthritis: Comment: Seronegative rheumatoid arthritis, MRI in 2019 showed synovitis bilaterally. Methotrexate 01/2017-June 2020 self discontinued after COVID Sulfasalazine 11/2018- present prev on 1.5 g daily now 1 g daily . effective Code(s): M06.00 - Rheumatoid arthritis without rheumatoid factor, unspecified site Plan: This is a 67-year-old male with seronegative RA returns for follow-up. Doing well overall on sulfasalazine 500 mg Twice daily. Continue sulfasalazine 500 mg Twice daily Labs before next visit in 4 months (2) Elevated liver enzymes: Code(s): R74.8 - Abnormal levels of other serum enzymes Plan: Abdominal ultrasound 04/27 showed enlarged echogenic liver probably representing fatty infiltration. Small simple-appearing cyst in the left lobe of the liver. ALT remains slightly elevated. He is following with GI for positive hep B core antibody and non alcoholic fatty liver. (3) Ganglion cyst of dorsum of right wrist: Code(s): M67.431 - Ganglion, right wrist Plan: Likely a ganglion cyst, not particularly bothersome for patient. Advised patient to follow-up with hand surgeon if it starts to be symptomatic (4) On sulfasalazine therapy: Code(s): Z79.899 - Other intermediate (current) drug therapy Plan: Monitor safety labs Plan I spent 26 minutes reviewing patient's chart, evaluating patient, ordering diagnostic workup, counseling patient and documenting in the chart Orders: Orders Erythrocyte Sedimentation Rate 4 Months M06.00 - Rheumatoid arthritis without rheumatoid factor, unspecified site Complete Blood Count Auto Diff 4 Months M06.00 - Rheumatoid arthritis without rheumatoid factor, unspecified site Comprehensive Met. Panel 4 Months M06.00 - Rheumatoid arthritis without rheumatoid factor, unspecified site C Reactive Protein 4 Months M06.00 - Rheumatoid arthritis without rheumatoid factor, unspecified site Coding Level of Care Code Est Pt Level 4 (77085) Diagnoses Seronegative rheumatoid arthritis M06.00 Elevated liver enzymes R74.8 Ganglion cyst of dorsum of right wrist M67.431 On sulfasalazine therapy Z79.899
[2022-12-22 08:14] VITALS: BP 168/100; PULSE 63; TEMP 36.6; O2SAT 97; BMI 25.4
== END 2022-12-22 08:34 | disposition home or self-care (01) ==
PROVIDERS: PCP Internal Medicine; Visit Provider Student in an Organized Health Care Education/Training Program
DX: M06.00 Rheumatoid arthritis without rheumatoid factor, unspecified site (principal); R74.8 Abnormal levels of other serum enzymes; M67.431 Ganglion, right wrist; Z79.899 Other long term (current) drug therapy
CPT/HCPCS: 99214

== ENCOUNTER → 2022-12-22 08:11 | Outpatient (BNVA) | payer MEDICARE, MEDICAID, SELFPAY | PROVIDERS: PCP Internal Medicine; Visit Provider Student in an Organized Health Care Education/Training Program | DX: M06.00 Rheumatoid arthritis without rheumatoid factor, unspecified site (principal); M67.431 Ganglion, right wrist; R74.8 Abnormal levels of other serum enzymes; Z79.899 Other long term (current) drug therapy | CPT/HCPCS: 99212 ==

== ENCOUNTER 2023-04-14 07:58 | Outpatient (AMB) | payer OTHER, MEDICAID, SELFPAY ==
[2023-04-14 08:04] VITALS: BP 160/82; PULSE 73; TEMP 36.6; O2SAT 95; BMI 25.3
--- NOTE | 2023-04-14 08:04 | A.OFFVIS_ITS ---
Intake Vital Signs 04/14/23 08:04 Height 5 ft 6 in Weight 156 lb 15.506 oz BMI 25.3 BP 160/82 H Blood Pressure Location Rt brachial Pulse 73 Pulse Source Pulse Oximeter Temp 97.9 F Temp Source Skin Pulse Oximetry (%) 95 Oxygen Delivery Method Room Air Intake Visit Reasons: RA Intake Note: Pt last seen 12/22/22 presents today for follow up and test results. 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 Accompanied by: Self / Same As Patient Allergies ibuprofen Allergy (Severe, Verified 04/14/23 08:07) stomach ulcer Medication List - Last Reconciled 04/14/23 by Jorge Lyle MD alcohol swabs (Alcohol Prep Pads) pad topical amlodipine 5 mg PO DAILY atorvastatin 10 mg PO DAILY blood sugar diagnostic (FreeStyle Lite Strips) As directed glipizide ER 2.5 mg PO DAILY lancets (FreeStyle Lancets) As directed lisinopril 40 mg PO DAILY metformin ER 500 mg PO DAILY sitagliptin phosphate (Januvia) 100 mg PO DAILY sulfasalazine 500 mg PO BID HPI HPI Comments History of Present Illness Details 67 yoM presents for follow-up of seroneg ative rheumatoid arthritis. On sulfasalzine 1 gram daily. Well tolerated Patient is doing well overall. No new complaints. [facility] Medical History Seronegative rheumatoid arthritis Surgical History No history of previous surgery Social History Alcohol intake: current Alcohol intake frequency: holidays/special occasions only Patient Tobacco Use Status: Current someday Tobacco user Years Smoked: quit 10-12 years ago e-Cigarette/Vaping Use: Never Used Review of Systems Musc Denies arthralgias, Denies joint swelling and Denies stiffness Physical Exam Vital Signs: Last Vital Signs Temp 97.9 F 04/14/23 08:04 Pulse 73 04/14/23 08:04 BP 160/82 H 04/14/23 08:04 Pulse Ox 95 04/14/23 08:04 Oxygen Delivery Method Room Air 04/14/23 08:04 BMI result Body Mass Index 25.3 Const General: cooperative, healthy appearing and comfortable Nutritional Appearance: average body habitus Orientation/consciousness: patient oriented x3 Limitations: no limitations HEENT Head: Yes normocephalic and Yes atraumatic Mouth: moist mucous membranes Resp Effort & Inspection: normal respiratory effort and able to speak in complete sentences Neuro General: patient oriented x3 Extrem Other: No active synovitis Normal nailfold capillaroscopy Assessment & Plan Assessment & Plan (1) Seronegative rheumatoid arthritis: Comment: Seronegative rheumatoid arthritis, MRI in 2019 showed synovitis bilaterally. Methotrexate 01/2017-June 2020 self discontinued after COVID Sulfasalazine 11/2018- present prev on 1.5 g daily now 1 g daily . effective Code(s): M06.00 - Rheumatoid arthritis without rheumatoid factor, unspecified site Plan: This is a 67-year-old male with seronegative RA returns for follow-up. Doing well overall on sulfasalazine 500 mg Twice daily. Continue sulfasalazine 500 mg Twice daily Labs today and before next visit in 4 months (2) Elevated liver enzymes: Code(s): R74.8 - Abnormal levels of other serum enzymes Plan: Abdominal ultrasound 04/27 showed enlarged echogenic liver probably representing fatty infiltration. Small simple-appearing cyst in the left lobe of the liver. ALT remains slightly elevated. He is following with GI for positive hep B core antibody and non alcoholic fatty liver. (3) On sulfasalazine therapy: Code(s): Z79.899 - Other group home (current) drug therapy Plan: Monitor safety labs (4) Immunization counseling: Code(s): Z71.85 - Encounter for immunization safety counseling Plan: Patient received flu vaccine for this season. Advised patient to get new COVID booster and RSV vaccines. 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 Panel 4 Months Z79.899 - Other group home (current) drug therapy Comprehensive Met. 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
== END 2023-04-14 08:26 | disposition home or self-care (01) ==
PROVIDERS: PCP Internal Medicine; Visit Provider Student in an Organized Health Care Education/Training Program
DX: M06.00 Rheumatoid arthritis without rheumatoid factor, unspecified site (principal); R74.8 Abnormal levels of other serum enzymes; Z79.899 Other long term (current) drug therapy; Z71.85 Encounter for immunization safety counseling
CPT/HCPCS: 99214

== ENCOUNTER 2023-04-14 07:58 | Outpatient (REF) | payer OTHER, SELFPAY ==
[2023-04-14 09:11] LABS: MANUAL DIFF FLAG NO
[2023-04-14 10:53] LABS: Basophils Absolute Auto 0.1 X10*3/uL (0.0-0.2); Basophils Percent Auto 0.7 % (0-2); Eosinophils Absolute Auto 0.4 X10*3/uL (0.0-0.4); Eosinophils Percent Auto 4.3 % (0-4); Hematocrit 47.2 % (42.0-52.0); Hemoglobin 16.8 g/dl (14.0-18.0); Imm Gran Abs Auto 0.02 X10*3/uL (0.00-0.03); Imm Gran Pct Auto 0.2 % (0.0-0.4); Lymphocytes Absolute Auto 1.8 X10*3/uL (1.2-4.9); Lymphocytes Percent Auto 20.5 % (20-40); Mean Corpuscular HGB Conc 35.6 g/dl (31.0-36.0); Mean Corpuscular Hemoglobin 32.2 pg (27.0-33.0); Mean Corpuscular Volume 90.6 fL (80.0-98.0); Mean Platelet Volume 10.9 fL (9.4-12.4); Monocytes Absolute Auto 0.7 X10*3/uL (0.1-1.2); Monocytes Percent Auto 8.2 % (2-11); Neutrophils Absolute Auto 5.7 x10*3/uL (2.0-8.3); Neutrophils Percent Auto 66.1 % (45-73); Platelet Count 190 X10*3/uL (160-400); Red Blood Count 5.21 X10*6/uL (4.60-5.80); Red Cell Distribution Width 13.1 % (11.0-16.0); White Blood Count 8.6 X10*3/uL (4.8-10.8)
[2023-04-14 11:31] LABS: Erythrocyte Sedimentation Rate 5 MM/HR (0-15)
[2023-04-14 11:58] LABS: Alanine Aminotransferase 55 U/L (0-40); Albumin Level 4.4 g/dL (3.5-5.0); Alkaline Phosphatase 47 U/L (39-117); Anion Gap 13 (12-20); Aspartate Amino Transferase 30 U/L (5-37); Bilirubin Total 0.9 mg/dL (0.0-1.0); Blood Urea Nitrogen 11 mg/dL (9-16); C Reactive Protein 0.14 mg/dL (< or = 0.50); Carbon Dioxide 25 mmol/L (22-29); Chloride 106 mmol/L (96-108); Estimated Glomerular Filt Rate > 60; Glucose Random 128 mg/dL (60-115); Potassium 3.8 mmol/L (3.3-5.1); Sodium 140 mmol/L (135-145); Total Protein 7.8 g/dL (6.5-8.0)
== END 2023-04-14 07:59 | disposition home or self-care (01) ==
LOC: HO.LAB 07:58
PROVIDERS: PCP Internal Medicine; Visit Provider Student in an Organized Health Care Education/Training Program
DX: M06.00 Rheumatoid arthritis without rheumatoid factor, unspecified site (principal); R74.8 Abnormal levels of other serum enzymes; Z71.85 Encounter for immunization safety counseling; Z79.899 Other long term (current) drug therapy
CPT/HCPCS: 36415; 80053; 85025; 85652; 86140; 99212

== ENCOUNTER 2023-08-10 07:57 | Outpatient (REF) | payer OTHER, SELFPAY ==
[2023-08-10 08:12] LABS: MANUAL DIFF FLAG NO
[2023-08-10 08:23] LABS: Basophils Absolute Auto 0.1 X10*3/uL (0.0-0.2); Basophils Percent Auto 0.7 % (0-2); Eosinophils Absolute Auto 0.3 X10*3/uL (0.0-0.4); Eosinophils Percent Auto 3.4 % (0-4); Hematocrit 45.6 % (42.0-52.0); Hemoglobin 16.4 g/dl (14.0-18.0); Imm Gran Abs Auto 0.03 X10*3/uL (0.00-0.03); Imm Gran Pct Auto 0.4 % (0.0-0.4); Lymphocytes Absolute Auto 2.1 X10*3/uL (1.2-4.9); Lymphocytes Percent Auto 28.6 % (20-40); Mean Corpuscular Hemoglobin 33.4 pg (27.0-33.0); Mean Corpuscular Volume 92.9 fL (80.0-98.0); Mean Platelet Volume 10.5 fL (9.4-12.4); Monocytes Absolute Auto 0.6 X10*3/uL (0.1-1.2); Monocytes Percent Auto 7.8 % (2-11); Neutrophils Absolute Auto 4.4 x10*3/uL (2.0-8.3); Neutrophils Percent Auto 59.1 % (45-73); Platelet Count 184 X10*3/uL (160-400); Red Blood Count 4.91 X10*6/uL (4.60-5.80); Red Cell Distribution Width 13.2 % (11.0-16.0); White Blood Count 7.5 X10*3/uL (4.8-10.8)
[2023-08-10 08:52] LABS: Alanine Aminotransferase 40 U/L (0-40); Albumin Level 4.3 g/dL (3.5-5.0); Alkaline Phosphatase 43 U/L (39-117); Anion Gap 13 (12-20); Aspartate Amino Transferase 21 U/L (5-37); Bilirubin Total 0.4 mg/dL (0.0-1.0); Blood Urea Nitrogen 11 mg/dL (9-16); C Reactive Protein 0.16 mg/dL (< or = 0.50); Calcium 9.4 mg/dL (8.4-10.2); Carbon Dioxide 24 mmol/L (22-29); Chloride 108 mmol/L (96-108); Estimated Glomerular Filt Rate > 60; Glucose Random 178 mg/dL (60-115); Sodium 141 mmol/L (135-145); Total Protein 7.7 g/dL (6.5-8.0)
[2023-08-10 09:20] LABS: Erythrocyte Sedimentation Rate 3 MM/HR (0-15)
== END 2023-08-10 07:58 | disposition home or self-care (01) ==
LOC: HO.LAB 07:57
PROVIDERS: Visit Provider Student in an Organized Health Care Education/Training Program
DX: M06.00 Rheumatoid arthritis without rheumatoid factor, unspecified site (principal); Z79.899 Other long term (current) drug therapy
CPT/HCPCS: 36415; 80053; 85025; 85652; 86140

== ENCOUNTER 2023-08-17 08:18 | Outpatient (AMB) | payer MEDICARE, MEDICAID, SELFPAY ==
--- NOTE | 2023-08-17 08:22 | A.OFFVIS_ITS ---
Vital Signs 08/17/23 08:26 Height 5 ft 6 in Weight 156 lb 8.451 oz BMI 25.3 BP 140/90 H Blood Pressure Location Rt brachial Position Sitting Pulse 84 Pulse Source Pulse Oximeter Pulse Oximetry (%) 95 Oxygen Delivery Method Room Air Intake Visit Reasons: RA Intake Note: Patient last seen 04/14/23 presents today for follow up and test results. Patient complains of low back pain today. 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 Accompanied by: Self / Same As Patient Allergies ibuprofen Allergy (Severe, Verified 08/17/23 08:27) stomach ulcer Medication List - Last Reconciled 08/17/23 by Jorge Lyle MD alcohol swabs (Alcohol Prep Pads) pad topical amlodipine 5 mg PO DAILY atorvastatin 10 mg PO DAILY blood sugar diagnostic (FreeStyle Lite Strips) As directed glipizide ER 2.5 mg PO DAILY lancets (FreeStyle Lancets) As directed lisinopril 40 mg PO DAILY metformin ER 500 mg PO DAILY sitagliptin phosphate (Januvia) 100 mg PO DAILY sulfasalazine 500 mg PO BID HPI Comments Details: 68 yoM presents for follow-up of seronegative rheumatoid arthritis. On sulfasalzine 1 gram daily. Well tolerated Patient is doing well overall. States that he has been having low back pain that started 8-9 years ago. He was evaluated by pain management and received injections which helped only for a few days. He also tried different treatments such as PT which did not help, patches caused side effects and pads only provided moderate relief. Currently he does not take anything for his pain. 3- 4 months ago he had an episode of sciatica but that does not seem to be a recurrent problem. He recently cut down on alcohol consumption [facility] Medical History Seronegative rheumatoid arthritis Surgical History No history of previous surgery Social History Alcohol intake: current Alcohol intake frequency: holidays/special occasions only Patient Tobacco Use Status: Current everyday Tobacco user Cigarettes Per Day: 5 Years Smoked: quit 10-12 years ago e-Cigarette/Vaping Use: Never Used Review of Systems Musc Reports back pain and Denies joint swelling Physical Exam Vital Signs: Last Vital Signs Pulse 84 08/17/23 08:26 BP 140/90 H 08/17/23 08:26 Pulse Ox 95 08/17/23 08:26 Oxygen Delivery Method Room Air 08/17/23 08:26 BMI result Body Mass Index 25.3 Const General: cooperative, healthy appearing and comfortable Nutritional Appearance: average body habitus Orientation/consciousness: patient oriented x3 Limitations: no limitations HEENT Head: Yes normocephalic and Yes atraumatic Mouth: moist mucous membranes Resp Effort & Inspection: normal respiratory effort and able to speak in complete sentences Neuro General: patient oriented x3 Extrem Other: No active synovitis Normal nailfold capillaroscopy Andriy test 10-13.5 cm Normal lateral flexion test bilaterally Negative straight leg raise test bilaterally Negative Mallory test bilaterally Assessment & Plan Assessment & Plan (1) Seronegative rheumatoid arthritis: Comment: Seronegative rheumatoid arthritis, MRI in 2018 showed synovitis bilaterally. Methotrexate 01/2017-June 2020 self discontinued after COVID Sulfasalazine 11/2018- present prev on 1.5 g daily now 1 g daily . effective Code(s): M06.00 - Rheumatoid arthritis without rheumatoid factor, unspecified site Category: Medical Plan: This is a 68-year-old male with seronegative RA returns for follow-up. Doing well overall on sulfasalazine 500 mg Twice daily. Continue sulfasalazine 500 mg Twice daily Labs before next visit in 4 months (2) Elevated liver enzymes: Code(s): R74.8 - Abnormal levels of other serum enzymes Category: Medical Plan: Abdominal ultrasound 04/27 showed enlarged echogenic liver probably representing fatty infiltration. Small simple-appearing cyst in the left lobe of the liver. He is following with GI for positive hep B core antibody and non alcoholic fatty liver. His ALT has normalized. This is likely due to significant cutting down of alcohol in recent months. Advised patient to continue to avoid alcohol consumption (3) On sulfasalazine therapy: Code(s): Z79.899 - Other intermediate (current) drug therapy Category: Medical Plan: Monitor safety labs (4) Low back pain, unspecified: Code(s): M54.50 - Low back pain, unspecified Category: Medical Qualifiers: Chronicity: chronic Back pain laterality: midline Sciatica presence: without sciatica Qualified Code(s): M54.50 - Low back pain, unspecified; G89.29 - Other chronic pain Plan: Symptoms started 8-9 years ago. Patient had different treatments over the years including injections, patches, physical therapy. Nothing was helpful. His symptoms are mild. 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 Panel 4 Months M06.00 - Rheumatoid arthritis without rheumatoid factor, unspecified site, Z79.899 - Other petroleum terminal plant operator (current) drug therapy C Reactive Protein 4 Months M06.00 - Rheumatoid arthritis without rheumatoid factor, unspecified site, Z79.899 - Other petroleum terminal plant operator (current) drug therapy Erythrocyte Sedimentation Rate 4 Months M06.00 - Rheumatoid arthritis without rheumatoid factor, unspecified site, Z79.899 - Other intermediate (current) drug therapy Coding Level of Care Code Est Pt Level 4 (52632) Diagnoses Seronegative rheumatoid arthritis M06.00 Elevated liver enzymes R74.8 On sulfasalazine therapy Z79.899 Chronic midline low back pain without sciatica M54.50; G89.29 Chronicity: chronic Back pain laterality: midline Sciatica presence: without sciatica
[2023-08-17 08:26] VITALS: BP 140/90; PULSE 84; O2SAT 95; BMI 25.3
== END 2023-08-17 08:38 | disposition home or self-care (01) ==
PROVIDERS: PCP Internal Medicine; Visit Provider Student in an Organized Health Care Education/Training Program
DX: M06.00 Rheumatoid arthritis without rheumatoid factor, unspecified site (principal); R74.8 Abnormal levels of other serum enzymes; Z79.899 Other long term (current) drug therapy; M54.50 Low back pain, unspecified; G89.29 Other chronic pain
CPT/HCPCS: 99214

== ENCOUNTER → 2023-08-17 08:18 | Outpatient (BNVA) | payer MEDICARE, SELFPAY | PROVIDERS: PCP Internal Medicine; Visit Provider Student in an Organized Health Care Education/Training Program | DX: M06.00 Rheumatoid arthritis without rheumatoid factor, unspecified site (principal); M54.50 Low back pain, unspecified; G89.29 Other chronic pain; R74.8 Abnormal levels of other serum enzymes; Z79.899 Other long term (current) drug therapy | CPT/HCPCS: 99212 ==

== ENCOUNTER 2023-11-26 14:56 | Outpatient (AMB) | payer OTHER, SELFPAY ==
--- NOTE | 2023-11-26 15:07 | A.OFFPC_ITS ---
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 - see comments Intake Note: establish care med refills for metformin Allergies ibuprofen Allergy (Severe, Verified 11/26/23 15:12) stomach ulcer Medication List - Last Reconciled 11/26/23 by Cesar Castellanos MD alcohol swabs (Alcohol Prep Pads) pad topical amlodipine 5 mg PO DAILY atorvastatin 10 mg PO DAILY blood sugar diagnostic (FreeStyle Lite Strips) As directed glipizide ER 2.5 mg PO DAILY lancets (FreeStyle Lancets) As directed lisinopril 40 mg PO DAILY metformin ER 500 mg PO DAILY sitagliptin phosphate (Januvia) 100 mg PO DAILY sulfasalazine 500 mg PO BID Tobacco use date assessed: 11/26/23 Fall risk assessment: No Falls in past year Last assessed Fall Risk: 11/26/23 Dental Screening Dental Screen Date: 11/26/23 Did you have a dental visit in the last 12 months?: Yes Did you have a dental problem in the last 6 months where you did not have access to dental care?: No Was dental information given to patient?: Patient has dentist HPI 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 ?? Prior PCP:?Dr Mccann Last office visit/CPE:? Beginning 2023 Acute issue(s):? L neck/shoulder radicular sxs down to hand ?? PMHx:?HTN, DM, Elev. Liver enzymes. Seronegative rheumatoid arthritis. . Low back pain. Sicca syndrome. Neck pain, HLD. SurgHx: None? FHx:?Dad: throat cancer. Mom: Pneumonia SocHx:? 1 pack per 3-4 days. EtOH: 1-2 drinks a day or per 2 days. No drugs HPI Comments History of Present Illness Details Documentation assistance for Cesar Castellanos MD, was provided by Geraldo Paredes,? Stock Order Lister on 11/26/2023 at 3:27 PM EST. I, Dr. Castellanos, have read, observed, and verified documentation. PFSH Medical History Seronegative rheumatoid arthritis Surgical History No history of previous surgery Social History Housing: House Alcohol intake: current Alcohol intake frequency: holidays/special occasions only Patient Tobacco Use Status: Current everyday Tobacco user Cigarettes Per Day: 5 Years Smoked: quit 10-12 years ago e-Cigarette/Vaping Use: Never Used Second Hand Smoke Exposure: No service: No Current occupational status: disabled Cognitive needs: No Hearing needs: No Vision needs: Yes Questionnaire PHQ-9 Over the last 2 weeks, how often have you been bothered by any of the following problems? 1. Little interest or pleasure in doing things: not at all 2. Feeling down, depressed, or hopeless: not at all 3. Trouble falling or staying asleep, or sleeping too much: not at all 4. Feeling tired or having little energy: several days 5. Poor appetite or overeating: not at all 6. Feeling bad about yourself - or that you are a failure or have let yourself or your family down: not at all 7. Trouble concentrating on things, such as reading the newspaper or watching television: more than half the days 8. Moving or speaking so slowly that other people could have noticed. Or the opposite - being so fidgety or restless that you have been moving around a lot more than usual: not at all 9. Thoughts that you would be better off or of hurting yourself in some way: not at all Total score: 3 Depression Screening Interpretation: Negative Depression Screening Done: Yes 74063 - PHQ-9 Billing: Yes Source: Developed by Drs. Sajan Tavarez, Felicity Culver, Damion Acosta and colleagues, with an educational sharad from [employer]. Thrive Questionnaire Date Thrive assessed: 11/26/23 I am a: Patient What is your living situation today?: I have a place to live, but I am worried about losing it in the future Within the past 12 months, did the food you bought not last and you didn't have the money to get more?: Never true Within the past 12 months, did you worry whether your food would run out before you got money to buy more?: Never true Do you have trouble paying for medicines?: No Do you have trouble getting transportation to medical appointments?: No Do you have trouble paying your heating and electricity bill?: No Do you have trouble taking care of your child, family member or friend?: No Do you have trouble with day-to-day activities such as bathing, preparing meals, shopping, managing finances, etc.?: No Are you currently unemployed and looking for a job?: No Are you interested in more education?: No Please select the resources that you would like help with: None Currently or been in a relationship where the following occur: No concerns reported THRIVE Score: 1 AUDIT C Alcohol Use Questionnaire (AUDIT-C) 1. How often do you have a drink containing alcohol?: 2-4 times a month 2. How many drinks containing alcohol do you have on a typical day when you are drinking?: 1 or 2 3. How often do you have six or more drinks on one occasion?: Never Total Score: 2 BISI-7 AMB Questionnaire BISI-7 Date BISI - 7 assessed: 11/26/23 Feeling nervous, anxious, or on edge: 0 = Not at all Not being able to stop or control worryin = Several days Worrying too much about different things: 1 = Several days Trouble relaxin = Several days Being so restless that it is hard to sit still: 0 = Not at all Becoming easily annoyed or irritable: 1 = Several days Feeling afraid as if something awful might happen: 1 = Several days Total BISI-7 score (0-4 normal; 5-9 mild; 10-14 moderate; 15-21 severe): 5 Source: Developed by Drs. Sajan Tavarez, Felicity Culver, Damion Acosta and colleagues, with an educational sharad from [employer]. BISI-7 Assessment Billing BISI-7 Assessment Tool: BISI-7 Assessment 59897 Review of Systems Const Denies chills, Denies fatigue, Denies fever(s), Denies headache(s) and Denies weakness ENT Denies dizziness, Denies headache(s) and Reports neck pain Card Denies chest pain, Denies lightheadedness, Denies dyspnea and Denies other (Palpitations) Resp Denies cough, Denies dyspnea, Denies wheezing and Denies other ( shortness of breath) Musc Details: Shoulder pain Reports neck pain, Denies numbness and Denies tingling Neuro Denies dizziness, Denies headache(s), Denies numbness, Denies tingling, Denies paresthesias and Denies weakness Psych Denies anxiety and Denies depression Endo Denies fatigue Aller/Immun Denies wheezing Physical exam (Primary Care) Vital Signs: Last Vital Signs Temp 97.5 F 11/26/23 15:15 Pulse 80 11/26/23 15:15 Resp 16 11/26/23 15:15 BP 120/70 11/26/23 15:15 Pulse Ox 98 11/26/23 15:15 Oxygen Delivery Method Room Air 11/26/23 15:15 BMI result Body Mass Index 28.2 Tobacco/Smoking Status: Tobacco use Status Tobacco use date assessed 11/26/23 11/26/23 15:16 Patient Tobacco Use Status Current everyday Tobacco 11/26/23 15:16 e-Cigarette/Vaping Use Never Used 11/26/23 15:16 PHQ-9: PHQ-9 Score PHQ-9: Total score 3 11/26/23 15:16 Depression Screening Interpretation: Negative Thrive Assessment: Date of Thrive Assessment Date Thrive assessed 11/26/23 11/26/23 15:16 Currently or been in a relationship where the following occur: No concerns reported Const General: no acute distress and well developed Nutritional Appearance: well nourished Orientation/consciousness: patient oriented x3 [facility]: Yes normocephalic and Yes atraumatic Eyes General: appearance normal, both eyes and all related structures Pupils: Equal, round and reactive pupils present EOM: EOMs intact bilaterally Resp Effort & Inspection: normal respiratory effort Auscultation: clear to auscultation bilaterally Cardio Rate: regular rate Rhythm: regular rhythm Heart sounds: S1 normal heart sound present, S2 normal heart sound present, no gallops, no murmurs and no rubs Neuro General: patient oriented x3 and gait normal Cranial nerves: Yes Equal, round and reactive pupils present Psych Affect: normal affect Assessment and Plan Assessment & Plan (1) Hypertension: Code(s): I10 - Essential (primary) hypertension Plan: Blood?pressure?is?controlled.??Goal?is?less?than?140/90 Continue?current?medications (2) Diabetes: Code(s): E11.9 - Type 2 diabetes mellitus without complications Plan: Patient?is?on?metformin?and?glipizide?as?well?as?Januvia Check?labs Continue?current?medication?regimen?for?now (3) Cervical radiculopathy: Code(s): M54.12 - Radiculopathy, cervical region Plan: Left?neck?and?shoulder?radicular?pain?that?radiates?down?to?hand Can?not?take?ibuprofen?but?his?income tax consultant?has?him?on?sulfasalazine?and?he?ca n?continue?this Will?also?give?him?a?trial?of?gabapentin May?benefit?from?physical?therapy Referred?to?neurology?for?nerve?conduction?testing (4) Chronic neck and back pain: Code(s): M54.2 - Cervicalgia; M54.9 - Dorsalgia, unspecified; G89.29 - Other chronic pain Plan: Continue?sulfasalazine Follow-up?with?rheumatology (5) Seronegative rheumatoid arthritis: Comment: Seronegative rheumatoid arthritis, MRI in 2019 showed synovitis bilaterally. Methotrexate 01/2017-June 2020 self discontinued after COVID Sulfasalazine 11/2018- present prev on 1.5 g daily now 1 g daily . effective Code(s): M06.00 - Rheumatoid arthritis without rheumatoid factor, unspecified site Plan: As?above,?follow-up?with?rheumatology (6) Smoker: Code(s): F17.200 - Nicotine dependence, unspecified, uncomplicated Plan: Encouraged?weaning?and?cessation (7) Hyperlipidemia: Code(s): E78.5 - Hyperlipidemia, unspecified Plan: Patient?is?on?atorvastatin Check?lipid (8) Laboratory exam ordered as part of routine general medical examination: Code(s): Z00.00 - Encounter for general adult medical examination without abnormal findings Plan: Check?labs Orders: Orders Lipid Panel Today Z00.00 - Encounter for general adult medical examination without abnormal findings Microalbumin, Random (w Creat) Today I10 - Essential (primary) hypertension PT Evaluation and Treatment Today M54.12 - Radiculopathy, cervical region Comprehensive [place]. Panel Fast Today Z00.00 - Encounter for general adult medical examination without abnormal findings Complete Blood Count Auto Diff Today Z00.00 - Encounter for general adult medical examination without abnormal findings Prostate Specific Antigen Scr Today Z12.5 - Encounter for screening for malignant neoplasm of prostate TSH reflex Free T4 Today Z00.00 - Encounter for general adult medical examination without abnormal findings Hemoglobin A1c Today R73.01 - Impaired fasting glucose Referrals Neurology Referral M54.12 - Radiculopathy, cervical region Medications: New gabapentin 300 mg PO BEDTIME 30 days 30 caps 3RF M54.12 - Radiculopathy, cervical region Changed From sitagliptin phosphate (Januvia) 100 mg PO DAILY To sitagliptin phosphate (Januvia) 100 mg PO DAILY 90 days 90 tabs 3RF From metformin ER 500 mg PO DAILY To metformin ER 500 mg PO DAILY 90 days 90 tabs 3RF Refilled sulfasalazine 500 mg PO BID 180 tabs 0RF M06.00 - Rheumatoid arthritis without rheumatoid factor, unspecified site Coding Level of Care Code New Pt Level 4 (51922) Diagnoses Hypertension I10 Diabetes E11.9 Cervical radiculopathy M54.12 Chronic neck and back pain M54.2; M54.9; G89.29 Seronegative rheumatoid arthritis M06.00 Smoker F17.200 Hyperlipidemia E78.5 Laboratory exam ordered as part of routine general medical examination Z00.00 Additional Codes BISI-7 Assessment Billing - BISI-7 Assessment Tool: BISI-7 Assessment 12342 ([id number])
[2023-11-26 15:15] VITALS: BP 120/70; PULSE 80; RESP 16; TEMP 36.4; O2SAT 98; BMI 28.2
== END 2023-11-26 15:47 | disposition home or self-care (01) ==
PROVIDERS: PCP Family Medicine; Visit Provider Family Medicine
DX: I10 Essential (primary) hypertension (principal); M06.00 Rheumatoid arthritis without rheumatoid factor, unspecified site; E11.9 Type 2 diabetes mellitus without complications; M54.12 Radiculopathy, cervical region; M54.2 Cervicalgia; M54.9 Dorsalgia, unspecified; G89.29 Other chronic pain; F17.200 Nicotine dependence, unspecified, uncomplicated; E78.5 Hyperlipidemia, unspecified
CPT/HCPCS: 99204

== ENCOUNTER 2023-11-27 07:33 | Outpatient (REF) | payer MEDICARE, SELFPAY ==
[2023-11-27 11:06] LABS: MANUAL DIFF FLAG NO
[2023-11-27 11:23] LABS: Basophils Absolute Auto 0.1 X10*3/uL (0.0-0.2); Basophils Percent Auto 0.9 % (0-2); Eosinophils Absolute Auto 0.4 X10*3/uL (0.0-0.4); Hematocrit 48.5 % (42.0-52.0); Hemoglobin 17.3 g/dl (14.0-18.0); Imm Gran Abs Auto 0.05 X10*3/uL (0.00-0.03); Imm Gran Pct Auto 0.6 % (0.0-0.4); Lymphocytes Absolute Auto 1.8 X10*3/uL (1.2-4.9); Lymphocytes Percent Auto 22.7 % (20-40); Mean Corpuscular HGB Conc 35.7 g/dl (31.0-36.0); Mean Corpuscular Hemoglobin 32.4 pg (27.0-33.0); Mean Corpuscular Volume 90.8 fL (80.0-98.0); Monocytes Absolute Auto 0.7 X10*3/uL (0.1-1.2); Monocytes Percent Auto 8.3 % (2-11); Neutrophils Percent Auto 62.5 % (45-73); Platelet Count 181 X10*3/uL (160-400); Red Blood Count 5.34 X10*6/uL (4.60-5.80); Red Cell Distribution Width 13.2 % (11.0-16.0)
[2023-11-27 11:29] LABS: Estimated Average Glucose 160 mg/dL; Hemoglobin A1c % 7.2 % (<6.0)
[2023-11-27 11:51] LABS: TSH reflex Free T4 1.55 uIU/mL (0.32-4.0)
[2023-11-27 11:56] LABS: Alanine Aminotransferase 67 U/L (0-40); Albumin Level 4.3 g/dL (3.5-5.0); Alkaline Phosphatase 50 U/L (39-117); Anion Gap 13 (12-20); Aspartate Amino Transferase 36 U/L (5-37); Bilirubin Total 0.8 mg/dL (0.0-1.0); Blood Urea Nitrogen 13 mg/dL (9-16); C Reactive Protein 0.14 mg/dL (< or = 0.50); Calcium 9.3 mg/dL (8.4-10.2); Carbon Dioxide 25 mmol/L (22-29); Chloride 105 mmol/L (96-108); Cholesterol 130 mg/dL (<200); Estimated Glomerular Filt Rate > 60; Glucose Fasting 149 mg/dL (60-99); Glucose Random 150 mg/dL (60-115); HDL Cholesterol 38 mg/dL (>40); LDL Cholesterol Calculated 58 mg/dL (<100); Potassium 3.6 mmol/L (3.3-5.1); Sodium 139 mmol/L (135-145); Total Protein 7.8 g/dL (6.5-8.0); Triglycerides 172 mg/dL (<150)
[2023-11-27 12:06] LABS: Erythrocyte Sedimentation Rate 5 MM/HR (0-15)
[2023-11-27 12:07] LABS: Creatinine Urine 110.02 mg/dL; Microalbum/Creatinine Ratio Ur 26.3 ug/mg cr (<30)
== END 2023-11-27 07:34 | disposition home or self-care (01) ==
LOC: HO.WFDLDS 07:33
PROVIDERS: Referring Provider Student in an Organized Health Care Education/Training Program; Visit Provider Family Medicine
DX: Z00.00 Encounter for general adult medical examination without abnormal findings (principal); M06.00 Rheumatoid arthritis without rheumatoid factor, unspecified site; Z79.899 Other long term (current) drug therapy; I10 Essential (primary) hypertension; Z12.5 Encounter for screening for malignant neoplasm of prostate; R73.01 Impaired fasting glucose
CPT/HCPCS: 36415; 80053; 80061; 82043; 82570; 83036; 84153; 84443; 85025; 85652; 86140

== ENCOUNTER 2023-12-17 08:16 | Outpatient (AMB) | payer OTHER, SELFPAY ==
--- NOTE | 2023-12-17 08:17 | MHC.OFFVIS ---
Vital Signs 12/17/23 08:20 Height 5 ft 3 in Weight 158 lb 4.67 oz BMI 28.0 BP 142/80 H Blood Pressure Location Rt brachial Position Sitting Pulse 74 Pulse Source Pulse Oximeter Pulse Oximetry (%) 95 Oxygen Delivery Method Room Air Intake Visit Reasons: RA Intake Note: Patient presents for RA. Allergies ibuprofen Allergy (Severe, Verified 12/17/23 08:19) stomach ulcer Medication List - Last Reconciled 12/17/23 by Jorge Lyle MD alcohol swabs (Alcohol Prep Pads) pad topical amlodipine 5 mg PO DAILY atorvastatin 10 mg PO DAILY blood sugar diagnostic (FreeStyle Lite Strips) As directed gabapentin 300 mg PO BEDTIME 30 days glipizide ER 2.5 mg PO DAILY lancets (FreeStyle Lancets) As directed lisinopril 40 mg PO DAILY metformin ER 500 mg PO DAILY 90 days sitagliptin phosphate (Januvia) 100 mg PO DAILY 90 days sulfasalazine 500 mg PO BID HPI Comments Details: 68 yoM presents for follow-up of seronegative rheumatoid arthritis. On sulfasalzine 1 gram daily. Well tolerated Patient is doing well overall. States that over the last 2 3 months he has noticed radiating pain and tingling from his neck down towards his left thumb. It happens while sitting. He was referred to Neurology for evaluation. [facility] Medical History Seronegative rheumatoid arthritis Surgical History No history of previous surgery Social History Housing: House Alcohol intake: current Alcohol intake frequency: holidays/special occasions only Patient Tobacco Use Status: Current everyday Tobacco user Cigarettes Per Day: 5 Years Smoked: quit 10-12 years ago e-Cigarette/Vaping Use: Never Used Second Hand Smoke Exposure: No service: No Current occupational status: disabled Cognitive needs: No Hearing needs: No Vision needs: Yes Review of Systems ENT Reports neck pain Musc Reports neck pain, Reports numbness and Reports radiating pain into limb Neuro Reports numbness Physical Exam Vital Signs: Last Vital Signs Pulse 74 12/17/23 08:20 BP 142/80 H 12/17/23 08:20 Pulse Ox 95 12/17/23 08:20 Oxygen Delivery Method Room Air 12/17/23 08:20 BMI result Body Mass Index 28.0 Const General: cooperative, healthy appearing and comfortable Nutritional Appearance: average body habitus Orientation/consciousness: patient oriented x3 Limitations: no limitations HEENT Head: Yes normocephalic and Yes atraumatic Mouth: moist mucous membranes Resp Effort & Inspection: normal respiratory effort and able to speak in complete sentences Auscultation: clear to auscultation bilaterally Cardio Rate: regular rate Rhythm: regular rhythm Skin General skin exam: no rashes or lesions noted Neuro General: patient oriented x3 Extrem Other: Negative Spurling's test bilaterally Negative Tinel sign bilaterally No active synovitis Normal nailfold capillaroscopy Negative straight leg raise test bilaterally Negative Mallory test bilaterally Assessment & Plan Assessment & Plan (1) Seronegative rheumatoid arthritis: Comment: Seronegative rheumatoid arthritis, MRI in 2018 showed synovitis bilaterally. Methotrexate 01/2017-June 2020 self discontinued after COVID Sulfasalazine 11/2018- present prev on 1.5 g daily now 1 g daily . effective Code(s): M06.00 - Rheumatoid arthritis without rheumatoid factor, unspecified site Category: Medical Plan: This is a 68-year-old male with seronegative RA returns for follow-up. Doing well overall on sulfasalazine 500 mg Twice daily. Continue sulfasalazine 500 mg Twice daily Labs before next visit in 4 months (2) Elevated liver enzymes: Code(s): R74.8 - Abnormal levels of other serum enzymes Category: Medical Plan: Abdominal ultrasound 04/27 showed enlarged echogenic liver probably representing fatty infiltration. Small simple-appearing cyst in the left lobe of the liver. He is following with GI for positive hep B core antibody and non alcoholic fatty liver. Liver enzymes are elevated. Patient has 2 alcoholic beverages daily. 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 Panel 4 Months M06.00 - Rheumatoid arthritis without rheumatoid factor, unspecified site, Z79.899 - Other correction (current) drug therapy C Reactive Protein 4 Months M06.00 - Rheumatoid arthritis without rheumatoid factor, unspecified site, Z79.899 - Other terminal press operator (current) drug therapy Erythrocyte Sedimentation Rate 4 Months M06.00 - Rheumatoid arthritis without rheumatoid factor, unspecified site, Z79.899 - Other correction (current) drug therapy Coding Level of Care Code Est Pt Level 4 (72229) Diagnoses Seronegative rheumatoid arthritis M06.00 Elevated liver enzymes R74.8 On sulfasalazine therapy Z79.899 Cervical radiculopathy M54.12
[2023-12-17 08:20] VITALS: BP 142/80; PULSE 74; O2SAT 95; BMI 28.0
== END 2023-12-17 08:34 | disposition home or self-care (01) ==
PROVIDERS: PCP Internal Medicine; Visit Provider Student in an Organized Health Care Education/Training Program
DX: M06.00 Rheumatoid arthritis without rheumatoid factor, unspecified site (principal); R74.8 Abnormal levels of other serum enzymes; Z79.899 Other long term (current) drug therapy; M54.12 Radiculopathy, cervical region
CPT/HCPCS: 99214

== ENCOUNTER → 2023-12-17 08:16 | Outpatient (BNVA) | payer OTHER, SELFPAY | PROVIDERS: PCP Internal Medicine; Visit Provider Student in an Organized Health Care Education/Training Program | DX: M06.00 Rheumatoid arthritis without rheumatoid factor, unspecified site (principal); R74.8 Abnormal levels of other serum enzymes; M54.12 Radiculopathy, cervical region; Z79.899 Other long term (current) drug therapy | CPT/HCPCS: 99212 ==

== ENCOUNTER 2024-01-19 12:38 | Outpatient (REF) | payer OTHER, SELFPAY ==
--- NOTE | ~2024-01-19 | XR_ITS ---
EXAMINATION: XR CERVICAL SPINE 5 VIEWS CLINICAL INFORMATION: Cervical radiculitis. Pain for a couple of months. COMPARISON: None available TECHNIQUE: 5 views of the cervical spine, inclusive of flexion and extension views, were obtained. FINDINGS: The vertebral alignment is normal. No intrinsic bony abnormality loss of intervertebral disc height at C5-C6. Bilateral multilevel foraminal stenosis. The endplates and posterior elements are normal. No fracture or subluxation. The surrounding prevertebral soft tissues are unremarkable. XR/XR cervical spine 4V IMPRESSION: Mild degenerative disease of the cervical spine. Electronically signed by: Barbie De Leon MD 03/22/2024 08:17 AM [facility] [place]
== END 2024-01-19 12:39 | disposition home or self-care (01) ==
LOC: HO.XRAY 12:38
PROVIDERS: PCP Family Medicine; Visit Provider Psychiatry & Neurology Neurology
DX: M54.12 Radiculopathy, cervical region (principal)
CPT/HCPCS: 72050

== ENCOUNTER 2024-04-13 08:59 | Outpatient (REF) | payer OTHER, SELFPAY ==
[2024-04-13 09:21] LABS: MANUAL DIFF FLAG NO
[2024-04-13 10:07] LABS: Basophils Percent Auto 0.4 % (0-2); Eosinophils Absolute Auto 0.3 X10*3/uL (0.0-0.4); Eosinophils Percent Auto 3.7 % (0-4); Hematocrit 44.7 % (42.0-52.0); Hemoglobin 16.4 g/dl (14.0-18.0); Imm Gran Abs Auto 0.02 X10*3/uL (0.00-0.03); Imm Gran Pct Auto 0.3 % (0.0-0.4); Lymphocytes Percent Auto 26.9 % (20-40); Mean Corpuscular HGB Conc 36.7 g/dl (31.0-36.0); Mean Corpuscular Hemoglobin 33.1 pg (27.0-33.0); Mean Corpuscular Volume 90.1 fL (80.0-98.0); Mean Platelet Volume 11.2 fL (9.4-12.4); Monocytes Absolute Auto 0.6 X10*3/uL (0.1-1.2); Monocytes Percent Auto 7.5 % (2-11); Neutrophils Absolute Auto 4.6 x10*3/uL (2.0-8.3); Neutrophils Percent Auto 61.2 % (45-73); Platelet Count 162 X10*3/uL (160-400); Red Blood Count 4.96 X10*6/uL (4.60-5.80); Red Cell Distribution Width 13.3 % (11.0-16.0); White Blood Count 7.5 X10*3/uL (4.8-10.8)
[2024-04-13 10:34] LABS: Alanine Aminotransferase 55 U/L (0-40); Albumin Level 4.2 g/dL (3.5-5.0); Alkaline Phosphatase 40 U/L (39-117); Anion Gap 12 (12-20); Aspartate Amino Transferase 34 U/L (5-37); Bilirubin Total 0.7 mg/dL (0.0-1.0); Blood Urea Nitrogen 10 mg/dL (9-16); C Reactive Protein 0.13 mg/dL (< or = 0.50); Calcium 8.7 mg/dL (8.4-10.2); Carbon Dioxide 21 mmol/L (22-29); Chloride 112 mmol/L (96-108); Estimated Glomerular Filt Rate > 60; Glucose Random 195 mg/dL (60-115); Potassium 3.6 mmol/L (3.3-5.1); Sodium 141 mmol/L (135-145); Total Protein 7.3 g/dL (6.5-8.0)
[2024-04-13 10:44] LABS: Erythrocyte Sedimentation Rate 2 MM/HR (0-15)
== END 2024-04-13 09:00 | disposition home or self-care (01) ==
LOC: HO.LAB 08:59
PROVIDERS: PCP Family Medicine; Visit Provider Student in an Organized Health Care Education/Training Program
DX: Z00.00 Encounter for general adult medical examination without abnormal findings (principal); M06.00 Rheumatoid arthritis without rheumatoid factor, unspecified site; Z79.899 Other long term (current) drug therapy
CPT/HCPCS: 36415; 80053; 85025; 85652; 86140

== ENCOUNTER 2024-04-18 08:19 | Outpatient (AMB) | payer OTHER, SELFPAY ==
[2024-04-18 08:22] VITALS: BP 130/68; PULSE 78; O2SAT 95; BMI 28.2
--- NOTE | 2024-04-18 08:22 | A.OFFVIS_ITS ---
Vital Signs 04/18/24 08:22 Height 5 ft 3 in Weight 159 lb 6.307 oz BMI 28.2 BP 130/68 Blood Pressure Location Rt brachial Position Sitting Pulse 78 Pulse Source Pulse Oximeter Pulse Oximetry (%) 95 Oxygen Delivery Method Room Air Intake Visit Reasons: RA Intake Note: Patient last seen by Doctor Jorge Lyle on 12/17/23. Presents today for RA follow up and test results. Patient also complains of right wrist pain for about a month. Allergies ibuprofen Allergy (Severe, Verified 04/18/24 08:24) stomach ulcer Medication List - Last Reconciled 04/18/24 by Jorge Lyle MD alcohol swabs (Alcohol Prep Pads) pad topical amlodipine 5 mg PO DAILY 90 days atorvastatin 10 mg PO DAILY blood sugar diagnostic (FreeStyle Lite Strips) As directed gabapentin 300 mg PO BEDTIME 30 days glipizide ER 2.5 mg PO DAILY 90 days lancets (FreeStyle Lancets) As directed lisinopril 40 mg PO DAILY metformin ER 500 mg PO DAILY 90 days sitagliptin phosphate (Januvia) 100 mg PO DAILY 90 days sulfasalazine 500 mg PO BID HPI Comments Details: 68 yoM presents for follow-up of seronegative rheumatoid arthritis. 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 [facility] Medical History Seronegative rheumatoid arthritis Surgical History No history of previous surgery Social History Housing: House Alcohol intake: current Alcohol intake frequency: holidays/special occasions only Patient Tobacco Use Status: Current everyday Tobacco user Cigarettes Per Day: 5 Years Smoked: quit 10-12 years ago e-Cigarette/Vaping Use: Never Used Second Hand Smoke Exposure: No service: No Current occupational status: disabled Cognitive needs: No Hearing needs: No Vision needs: Yes Review of Systems Musc Reports arthralgias, Reports joint swelling and Reports stiffness Physical Exam Vital Signs: Last Vital Signs Pulse 78 04/18/24 08:22 BP 130/68 01/13/25 08:22 Pulse Ox 95 04/18/24 08:22 Oxygen Delivery Method Room Air 04/18/24 08:22 BMI result Body Mass Index 28.2 Const General: cooperative, healthy appearing and comfortable Nutritional Appearance: average body habitus Orientation/consciousness: patient oriented x3 Limitations: no limitations HEENT Head: Yes normocephalic and Yes atraumatic Mouth: moist mucous membranes Resp Effort & Inspection: normal respiratory effort and able to speak in complete sentences Auscultation: clear to auscultation bilaterally Cardio Rate: regular rate Rhythm: regular rhythm Skin General skin exam: no rashes or lesions noted Neuro General: patient oriented x3 Extrem Other: Subtle dorsal right wrist swelling, minimal tenderness but no pain with full wrist flexion and extension Normal bilateral hand 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 Methotrexate 01/2017-June 2020 self discontinued after COVID Sulfasalazine 11/2018- present prev on 1.5 g daily now 1 g daily . effective Code(s): M06.00 - Rheumatoid arthritis without rheumatoid factor, unspecified site Category: Medical Plan: This is a 68-year-old male with seronegative RA returns for follow-up. On exam he has very subtle synovitis affecting his right wrist but he has normal functionality. We discussed potentially increasing sulfasalazine to 500 mg t.i.d.. Patient is not interested at this time Continue sulfasalazine 500 mg Twice daily Labs before next visit in 4 months (2) Elevated liver enzymes: Code(s): R74.8 - Abnormal levels of other serum enzymes Category: Medical Plan: Abdominal ultrasound 04/27 showed enlarged echogenic liver probably representing fatty infiltration. Small simple-appearing cyst in the left lobe of the liver. He is following with GI for positive hep B core antibody and non alcoholic fatty liver. Liver enzymes are elevated. Patient has 2 alcoholic beverages daily. Advised patient to cut down on drinking (3) On sulfasalazine therapy: Code(s): Z79.899 - Other emt intermediate (current) drug therapy Category: Medical Plan: Monitor safety labs Plan I spent 26 minutes reviewing patient's chart, evaluating patient, ordering diagnostic workup, counseling patient and documenting in the chart Medications: Refilled sulfasalazine 500 mg PO BID 180 tabs 1RF M06.00 - Rheumatoid arthritis without rheumatoid factor, unspecified site Coding Level of Care Code Est Pt Level 4 (07784) Complex EM visit Add On G2211 Diagnoses Seronegative rheumatoid arthritis M06.00 Elevated liver enzymes R74.8 On sulfasalazine therapy Z79.899
== END 2024-04-18 08:37 | disposition home or self-care (01) ==
PROVIDERS: PCP Family Medicine; Visit Provider Student in an Organized Health Care Education/Training Program
DX: M06.00 Rheumatoid arthritis without rheumatoid factor, unspecified site (principal); R74.8 Abnormal levels of other serum enzymes; Z79.899 Other long term (current) drug therapy
CPT/HCPCS: 99214; G2211

== ENCOUNTER → 2024-04-18 08:19 | Outpatient (BNVA) | payer OTHER, SELFPAY | PROVIDERS: PCP Family Medicine; Visit Provider Student in an Organized Health Care Education/Training Program | DX: M06.00 Rheumatoid arthritis without rheumatoid factor, unspecified site (principal); R74.8 Abnormal levels of other serum enzymes; Z79.899 Other long term (current) drug therapy | CPT/HCPCS: 99212 ==

== ENCOUNTER 2024-06-09 08:48 | Outpatient (AMB) | payer MEDICARE, OTHER, SELFPAY ==
--- NOTE | 2024-06-09 09:19 | MHC.PC.OV ---
Vital Signs 06/09/24 09:22 Height 5 ft 3 in Weight 158 lb 6 oz BMI 28.1 BP 130/56 L Blood Pressure Location Rt brachial Position Sitting Respiration 14 Pulse 69 Pulse Source Pulse Oximeter Temp 97.7 F Temp Source Oral Pulse Oximetry (%) 96 Oxygen Delivery Method Room Air Intake Visit Reasons: CPE with f/u labs and health maint. 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 Allergies ibuprofen Allergy (Severe, Verified 06/09/24 09:19) stomach ulcer Medication List - Last Reconciled 06/09/24 by Cesar Castellanos MD alcohol swabs (Alcohol Prep Pads) pad topical amlodipine 5 mg PO DAILY 90 days atorvastatin 10 mg PO DAILY 90 days blood sugar diagnostic (FreeStyle Lite Strips) As directed gabapentin 300 mg PO BEDTIME 30 days glipizide ER 2.5 mg PO DAILY 90 days lancets (FreeStyle Lancets) As directed lisinopril 40 mg PO DAILY 90 days metformin ER 500 mg PO DAILY 90 days sitagliptin phosphate (Januvia) 100 mg PO DAILY 90 days sulfasalazine 500 mg PO BID Tobacco use date assessed: 06/09/24 Fall risk assessment: No Falls in past year Last assessed Fall Risk: 06/09/24 Dental Screening Dental Screen Date: 06/09/24 Did you have a dental visit in the last 12 months?: Yes Did you have a dental problem in the last 6 months where you did not have access to dental care?: Yes Was dental information given to patient?: No HPI CPE with f/u labs and health maint. HPI Details 68 y/o male presents for a CPE with f/u labs and health maintenance. Labs drawn 04/13/24. Reviewed labs with pt. AST 34. ALT 55. No recent lipid panel. He is on artovastatin 10mg daily. Blood pressure today 130/56, 69p. He is on lisinopril 40mg, amlodipine 5mg daily. Hx of diabetes. He is on metformin 500mg, glipizide 2.5mg daily. A1c today 06/09/24 is 6.5% Notes he had a colonoscopy at [facility] but he is unsure when they wanted him to follow up. [facility] Medical History Seronegative rheumatoid arthritis Surgical History No history of previous surgery Social History Housing: House Alcohol intake: current Alcohol intake frequency: holidays/special occasions only Patient Tobacco Use Status: Current everyday Tobacco user Cigarettes Per Day: 5 Years Smoked: quit 10-12 years ago e-Cigarette/Vaping Use: Never Used Second Hand Smoke Exposure: No service: No Current occupational status: disabled Cognitive needs: No Hearing needs: No Vision needs: Yes Questionnaire PHQ-9 Over the last 2 weeks, how often have you been bothered by any of the following problems? 1. Little interest or pleasure in doing things: several days 2. Feeling down, depressed, or hopeless: not at all 3. Trouble falling or staying asleep, or sleeping too much: several days 4. Feeling tired or having little energy: several days 5. Poor appetite or overeating: several days 6. Feeling bad about yourself - or that you are a failure or have let yourself or your family down: several days 7. Trouble concentrating on things, such as reading the newspaper or watching television: not at all 8. Moving or speaking so slowly that other people could have noticed. Or the opposite - being so fidgety or restless that you have been moving around a lot more than usual: not at all 9. Thoughts that you would be better off or of hurting yourself in some way: not at all Total score: 5 Depression Screening Interpretation: Negative Depression Screening Done: Yes 41110 - PHQ-9 Billing: Yes Source: Developed by Drs. Sajan Tavarez, Felicity Culver, Damion Acosta and colleagues, with an educational sharad from [employer]. Thrive Questionnaire Date Thrive assessed: 06/09/24 I am a: Patient What is your living situation today?: I have a steady place to live Within the past 12 months, did the food you bought not last and you didn't have the money to get more?: I choose not to answer this question Within the past 12 months, did you worry whether your food would run out before you got money to buy more?: Sometimes True Do you have trouble paying for medicines?: No Do you have trouble getting transportation to medical appointments?: No Do you have trouble paying your heating and electricity bill?: Yes Do you have trouble taking care of your child, family member or friend?: No Do you have trouble with day-to-day activities such as bathing, preparing meals, shopping, managing finances, etc.?: I choose not to answer this question Are you currently unemployed and looking for a job?: I choose not to answer this question Are you interested in more education?: No Please select the resources that you would like help with: Housing/[facility], Food, Transportation and Utilities Currently or been in a relationship where the following occur: I choose not to answer THRIVE Score: 2 AUDIT C Alcohol Use Questionnaire (AUDIT-C) 1. How often do you have a drink containing alcohol?: 2-3 times a week 2. How many drinks containing alcohol do you have on a typical day when you are drinking?: 1 or 2 3. How often do you have six or more drinks on one occasion?: Never Total Score: 3 Score Reviewed/Action Taken: Yes BISI-7 AMB Questionnaire BISI-7 Date BISI - 7 assessed: 06/09/24 Feeling nervous, anxious, or on edge: 0 = Not at all Not being able to stop or control worryin = Several days Worrying too much about different things: 1 = Several days Trouble relaxin = Several days Being so restless that it is hard to sit still: 0 = Not at all Becoming easily annoyed or irritable: 2 = More than half the days Feeling afraid as if something awful might happen: 0 = Not at all Total BISI-7 score (0-4 normal; 5-9 mild; 10-14 moderate; 15-21 severe): 5 Source: Developed by Drs. Sajan Tavarez, Felicity Culver, Damion Acosta and colleagues, with an educational sharad from [employer]. BISI-7 Assessment Billing BISI-7 Assessment Tool: BISI-7 Assessment 35599 Review of Systems Const Denies chills, Denies fatigue, Denies fever(s), Denies headache(s) and Denies weakness Eyes Denies change in vision ENT Denies dizziness, Denies headache(s), Denies hearing loss, Denies nasal congestion, Denies sinus pain, Denies sinus pressure and Denies sore throat Card Denies chest pain, Denies lightheadedness, Denies dyspnea and Denies other (palpitations) Resp Denies cough, Denies dyspnea and Denies wheezing GI Denies abdominal pain, Denies melena, Denies hematochezia, Denies change in bowel habits, Denies dyspepsia and Denies nausea Denies hematuria and Denies dysuria Musc Denies abnormal gait, Denies myalgias, Denies arthralgias, Denies numbness and Denies tingling Skin/Breast Denies rash, Denies unusual bruising and Denies wounds Neuro Denies abnormal gait, Denies dizziness, Denies headache(s), Denies memory loss, Denies numbness, Denies Sensory deficit (Neuro), Denies tingling and Denies weakness Psych Denies anxiety, Denies depression and Denies memory loss Endo Denies cold intolerance, Denies fatigue, Denies heat intolerance, Denies polydipsia and Denies polyuria Darrin/Lymph Denies easy bleeding and Denies easy bruising Aller/Immun Denies wheezing Physical exam (Primary Care) Vital Signs: Last Vital Signs Temp 97.7 F 06/09/24 09:22 Pulse 69 06/09/24 09:22 Resp 14 06/09/24 09:22 BP 130/56 L 06/09/24 09:22 Pulse Ox 96 06/09/24 09:22 Oxygen Delivery Method Room Air 06/09/24 09:22 BMI result Body Mass Index 28.1 Tobacco/Smoking Status: Tobacco use Status Tobacco use date assessed 06/09/24 06/09/24 09:25 Patient Tobacco Use Status Current everyday Tobacco 06/09/24 09:25 e-Cigarette/Vaping Use Never Used 06/09/24 09:25 PHQ-9: PHQ-9 Score PHQ-9: Total score 5 06/09/24 09:25 Depression Screening Interpretation: Negative Thrive Assessment: Date of Thrive Assessment Date Thrive assessed 06/09/24 06/09/24 09:25 Currently or been in a relationship where the following occur: I choose not to answer Const General: no acute distress, well developed, alert and awake Nutritional Appearance: well nourished Orientation/consciousness: patient oriented x3 HENMT Head: Yes normocephalic and Yes atraumatic Ears: hearing grossly normal bilaterally and TM's normal bilaterally General nose exam: Normal external nose present and Normal nares present Mouth: Normal oral and palatal mucosa present and moist mucous membranes Teeth and gingiva: dentition normal Throat: Yes posterior oropharynx normal Eyes General: appearance normal, both eyes and all related structures Pupils: Equal, round and reactive pupils present and Pupil accommodation reflex normal EOM: EOMs intact bilaterally Neck Neck: Yes normal visual inspection, Yes no lymphadenopathy and Yes trachea midline Thyroid: Thyroid normal Carotids: no bruits Lymphatic: no lymphadenopathy noted Chest Chest palpation & inspection: normal inspection of the chest Resp Effort & Inspection: normal respiratory effort Auscultation: clear to auscultation bilaterally Cardio Rate: regular rate Rhythm: regular rhythm Heart sounds: S1 normal heart sound present, S2 normal heart sound present, no gallops, no murmurs and no rubs Bruits: no abdominal aortic bruits and no carotid bruits GI Palpation (GI): No Abdominal aortic bruit present, Soft to palpation, nontender, No hepatosplenomegaly present and No Rebound tenderness present Auscultation: normal bowel sounds General: Yes no CVA tenderness Back/Spine/Pelvis Back: no CVA tenderness Cervical Spine: cervical ROM normal and No Cervical spine tenderness Thoracic/Lumbar Spine: thoraco-lumbar ROM normal, No pain with thoraco-lumbar ROM, No thoracic spinal tenderness and No lumbar spinal tenderness Skin Lesions: no lesions Rashes: no rashes Trauma: no lacerations or abrasions Wounds: no wounds Nails: normal Neuro General: patient oriented x3 Cranial nerves: Yes Equal, round and reactive pupils present Cognition (Neuro): normal cognition Gait exam (Neuro): Normal gait present Motor exam (neuro): 5/5 motor strength present throughout Sensory Exam: No Sensory deficit (Neuro) Deep tendon reflexes (DTR's): Right patellar reflex intensity grade: 2+ and Left patellar reflex intensity grade: 2+ Extrem General: Yes normal to inspection and No edema Psych Appearance: grossly normal Affect: normal affect Attitude: cooperative Thought process: Normal thought process present Coding Level of Care Code Est Pt Level 3 (12902) Est Pt Prev Care >65y(83881) Diagnoses Adult general medical exam Z00.00 Hypertension I10 Diabetes E11.9 Elevated liver enzymes R74.8 Hyperlipidemia E78.5 Screening for colon cancer Z12.11 Screening for prostate cancer Z12.5 Additional Codes IBSI-7 Assessment Billing - BISI-7 Assessment Tool: BISI-7 Assessment 32096 ([id number]) PHQ-9 - 60592 - PHQ-9 Billing: Yes ([id number]) Assessment & Plan Assessment & Plan (1) Adult general medical exam: Code(s): Z00.00 - Encounter for general adult medical examination without abnormal findings Category: Medical Plan: 68-year-old?male?presents?for?complete?physical?exam Encouraged?healthy?diet?with?active?lifestyle?and?plenty?of?exercise (2) Hypertension: Code(s): I10 - Essential (primary) hypertension Category: Medical Plan: Blood?pressure?is?controlled.??Goal?is?less?than?140/90 Continue?current?medication (3) Diabetes: Code(s): E11.9 - Type 2 diabetes mellitus without complications Category: Medical Plan: A1c?6.5%.??Good?control.??Goal?is?less?than?7.0% Continue?current?medication,?diabetic?diet?and?I?encouraged?exercise (4) Elevated liver enzymes: Code(s): R74.8 - Abnormal levels of other serum enzymes Category: Medical Plan: Ongoing?elevated?liver?enzyme. History?of?hepatic?steatosis Also?history?of?hepatitis-B?and liver?cysts. Checking?ultrasound (5) Hyperlipidemia: Code(s): E78.5 - Hyperlipidemia, unspecified Category: Medical Plan: LDL?cholesterol?was?controlled?at?last?check. HDL?is?a?little?low He?is?on?atorvastatin?him?continue?this Encouraged?exercise (6) Screening for colon cancer: Code(s): Z12.11 - Encounter for screening for malignant neoplasm of colon Category: Medical Plan: Patient?says?he?had?a?colonoscopy?less?than?10?years?ago?at?[facility].??He?is?not?aware?of?when?his?follow-up?should?be. Will?request?report (7) Screening for prostate cancer: Code(s): Z12.5 - Encounter for screening for malignant neoplasm of prostate Category: Medical Plan: PSA?less?than?a?year?ago?was?within?normal?limits Up-to-date?and?will?continue?annual?screening Orders: Orders US abdomen sol w elastography Today R74.8 - Abnormal levels of other serum enzymes
[2024-06-09 09:22] VITALS: BP 130/56; PULSE 69; RESP 14; TEMP 36.5; O2SAT 96; BMI 28.1
--- OUTSIDE RECORDS SUMMARY | 2024-06-09 09:32 | XMS_ITS | Clinical Summary ---
Author Organization [employer] Address [address] [place] [address] Care Team Providers Care Lab Instructor Name Role Phone Unavailable Primary Care Provider Unavailabl e Allergies Active Allergy Reactions Criticality Noted Date Comments Ibuprofen 01/25/2024 Medications tamsulosin (Flomax) 0.4 MG 24 hr capsule TAKE 1 CAPSULE BY MOUTH BEFORE BED DAILY 01/01/2024 Active atorvastatin (Lipitor) 10 MG tablet 01/23/2024 Active lisinopril 40 MG tablet Take 40 mg by mouth Once per day. 11/07/2023 Active metFORMIN XR (Glucophage-XR) 500 MG 24 hr tablet Take 500 mg by mouth Once per day. 11/26/2023 Active sulfaSALAzine (Azulfidine) 500 MG tablet Take by mouth 4 times daily. Active Social History Tobacco Use Types Packs/Day Years Used Date Smoking Tobacco: Every Day Cigarettes Smokeless Tobacco: Never Tobacco Cessation:Ready to Q uit: Not Asked; Counseling Given: Not Answered Alcohol Use Standard Drinks/Week Comments Yes 0 (1 standard drink = 0.6 oz pur e alcohol) Sex and Gender Information Value Date Recorded Sex Assigned at Male 01/04/2024 10:31 AM EDT Legal Sex Male 10:02 AM EDT Gender Identity Male 01/04/2024 10:31 AM EDT Sexual Orientation Don't know 01/04/2024 10 :31 AM EDT Plan of Treatment Upcoming Encounters Date Type Department Care Team (Late st Contact Info) Description 06/30/2024 9:00 AM EDT Office Visit [facility] [address] [place] [address] [phone] Abby Mondragon [address] [place] [phone] Health Maintenance Due Date Last Done Comments CT Colonography 1957 Colonoscopy 1957 Colorectal Cancer Screening 1957 Dental Oral Exam 1957 Dental Prophylaxis 1957 Dental X-Ray: Bitewings 1957 Dental X-Ray: Full Mouth 1957 Depression Screening 1957 FIT DNA/Cologuard 1957 FIT 1957 FOBT 1957 Lipid Panel 1957 SDOH Screening 1957 Sigmoidoscopy 1957 Alcohol/Substance Use Screening 1969 Hepatitis C Screening 07/16/1975 DTaP/Tdap/Td Vaccines (1 - Tdap) 1976 Pneumococcal Vaccine: 50+ Years (1 of 2 - PCV) 1976 Zoster Vaccines (1 of 2) 07/16/2007 Tobacco Screening 01/24/2025 01/25/2024 RSV Patients and Patients Aged 60 years or older (1 - 1-dose 75+ series) 2032 COVID-19 Vaccine Completed 12/21/2023, , 05/16/2021, Additional history exists Influenza Vaccine Completed 12/21/2023, , 01/24/2022 HIB Vaccines Aged Out No longer eligi ble based on patient's age to complete this topic HPV Vaccines Aged Out No longer eligi ble based on patient's age to complete this topic Hepatitis A Vaccines Aged Out No long er eligible based on patient's age to complete this topic Hepatitis B Vaccines Aged Out No long er eligible based on patient's age to complete this topic IPV Vaccines Aged Out No longer eligi ble based on patient's age to complete this topic Meningococcal Vaccine Aged Out No leanna meche eligible based on patient's age to complete this topic RSV under 20 months Aged Out No longe r eligible based on patient's age to complete this topic Rotavirus Vaccines Aged Out No longer eligible based on patient's age to complete this topic Insurance DENTAL - [facility]
--- OUTSIDE RECORDS SUMMARY | 2024-06-09 09:32 | XMS_ITS ---
Author Name Esmer Fernandez NP Address [address] [place] [address] Phone [phone] Organization [facility] Care Team Providers Care Stiff Neck Loader Name Role Phone Esmer Fernandez Unavailable [phone] Reason for Referral Not Available Allergies, adverse reactions, alerts Allergen Type Reaction Severity Status Onset Date Ibuprofen Allergy to substance (disorder) Stomach ulcers Unk nown Active N/A History of medication use Medication Class Instructions Start Date End Date sulfaSALAzine 500 mg Tab 1 tablet orally 2 times per day 2024-06-08 No Data Available Acetaminophen 500 mg Tab 2 tablets orally Q8H PRN pain 2024-06-08 No Data Available Diclofenac Sodium 1 % Gel 4 grams topica lly to affected area 3 times per day PRN 2024-06-08 No Data Available Problem List Problem Status Onset Date Resolved Date HLD (hyperlipidemia) Active 2024-06-07 N/A Type 2 diabetes mellitus wit h diabetic neuropathy, without long-term current use of insulin Active 2024-06-07 N/A Rheumatoid arthritisImmunodeficiency Active 2024 N/A Other problems related to [facility] facilities and other health care Active 2024-06-08 N/A Smoker Active 2024-06-08 N/A BPH (benign prostatic hyperplasia) Active 3-04 N/A HTN (hypertension) Active 2024-06-07 N/A Encounters Encounters Type Facility Date of Service Diagnosis/Co mplaint New patient, 30-44min 1 stable chronic or 2 minor; add modifier 95 for video, modifier 93 for phone [facility] ([place]) 06/08/2024 Type 2 diabetes mellitus wit h diabetic neuropathy, unspecifiedRheumatoid arthritis, unspecifiedImmunodeficiency, unspecifiedEssential (primary) hypertensionHyperlipidemia, unspecifiedEnlarged prostate without lower urinary tract symptomsNicotine dependence, unspecified, uncomplicatedOther problems related to medical facilities and other health care New patient, 30-44min 1 stable chronic or 2 minor; add modifier 95 for video, modifier 93 for phone [facility], ([place]) 06/08/2024 New patient, 30-44min 1 stable chronic or 2 minor; add modifier 95 for video, modifier 93 for phone [facility] ([place] 06/08/2024 New patient, 30-44min 1 stable chronic or 2 minor; add modifier 95 for video, modifier 93 for phone [facility], ([place] 06/08/2024 New patient, 30-44min 1 stable chronic or 2 minor; add modifier 95 for video, modifier 93 for phone [facility] ([place] 06/08/2024 New patient, 30-44min 1 stable chronic or 2 minor; add modifier 95 for video, modifier 93 for phone [facility] ([place] 06/08/2024 New patient, 30-44min 1 stable chronic or 2 minor; add modifier 95 for video, modifier 93 for phone [facility] ([place] 06/08/2024 Body mass index (bmi) 27.0-27.9, adult New patient, 30-44min 1 stable chronic or 2 minor; add modifier 95 for video, modifier 93 for phone [facility] ([place]) 06/08/2024 Essential (primary) hypertensionType 2 diabetes mellitus with diabetic neuropathy, unspecified New patient, 30-44min 1 stable chronic or 2 minor; add modifier 95 for video, modifier 93 for phone [facility] ([place]) 06/08/2024 Essential (primary) hypertensionType 2 diabetes mellitus with diabetic neuropathy, unspecified Vital Signs Date of Collection Vitals 2024-06-08 06:45:38 Height - 160.02 cmWe ight - 69.85 kgBody Mass Index (BMI) - 27.28 kg/m2BP Diastolic - 80.0 mm[Hg]BP Systolic - 139.0 mm[Hg]Pain Scale - 7.0 {score} Social History Social History Social History Observation Description Effec tive Time Current Smoking Status Current every day smoker 2024-06-09 Sex Male History of Procedures Procedures Service Procedure code Service date Servicing provider Phone# New patient, 30-44min 1 stable chronic or 2 minor; add modifier 95 for video, modifier 93 for phone [id number] 2024-06-08 No Data Available No Data Available Medication List Documented (1159F) 1159F 2024-06-08 No Data Available No Data Capri ilable Medication Review by prescribing provider or pharmacist documented (1160F) 1160F 2024-06-08 No Data Available No Data Capri ilable Functional Status Assessed (1170F) 1170F 2024-06-08 No Data Available No Data Avail able Advance Care Directive Advance care planning discussion documented in the medical record (1158F) 1158F 2024-06-08 No Data Available No Data Availa ble Advance care planning discussed and documented ? advance care plan or surrogate decision-maker was documented in the medical record. (1123F) 1123F 2024-06-08 No Data Available No Data Availa ble Pain Assessment - Pain Documented on a Pain Scale (1125F) 1125F 2024-06-08 No Data Available No Data Capri ilable SBP 130-139 (3075F) 3075F 2024-06-08 No Data Availabl e No Data Available DBP 80-89 (3079F) 3079F 2024-06-08 No Data Available No Data Available Functional Status Functional Category Effective Dates Cognition Status: Oriented t o Person, Place and TimeADL Eating: Independent; Ambulation: Independent; Dressing: Some Help Needed; Bathing: Some Help Needed; Toileting: Some Help NeededIADL Shopping: Some Help Needed; Housekeeping: Some Help Needed; Meal Prep: Some Help Needed; Medications Management: IndependentFalls in last 6 Months: Yes, minor falls due to balance issues 2024-06-08 Mental Status No Information Assessments Date of Service Assessments 2024-06-08 06:45:38 Type 2 diabetes jacqueline itus with diabetic neuropathy, without long-term current use of insulinRheumatoid arthritisImmunodeficiencyHTN (hypertension)HLD (hyperlipidemia)BPH (benign prostatic hyperplasia)SmokerOther problems related to medical facilities and other health care Plan of Care Date of Service Plans 2024-06-08 06:45:38 Medication Review by prescribing provider or pharmacist documented (1160F)Medication List Documented (1159F)Functional Status Assessed (1170F)Advance Care Directive Advance care planning discussion documented in the medical record (1158F)SBP 130-139 (3075F)New patient, 30-44min 1 stable chronic or 2 minor; add modifier 95 for video, modifier 93 for phoneAdvance care planning discussed and documented ? advance care plan or surrogate decision-maker was documented in the medical record. (1123F)Pain Assessment - Pain Documented on a Pain Scale (1125F)DBP 80-89 (3079F)Continue to see PCP. 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 every 3-6 months on sulfasalazine takes tylenol if needed if pain is severe usually in his back Discussed can take up to 3000mg in 24 hours as long as he does not have any liver issuesstates ibuprofen oral causes ulcerswill send diclofenac gel PRN 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 system, encourage hand washing, avoid large crowds, stay up to date on vaccines (annual flu), monitor for and report early any s/s of infectionamlodipine, lisinopril BP 139/80Report persistent readings of 140/90 or abovestatintamsulosinsome mild issues of stream if his BG is high per pt4-5 ciggs a day (20 ciggs used to last him 3-4 days) states tries to quit states medications such as nicotine patch dont help muchIMMUNOSUPPRESSED CONTINGENCY PLANLast updated: 06/08/2024Member to call for the following symptoms: Fever/ Burning with urination/ CoughPlanned intervention: Send to ER if documented fever >100.4F, reassurance and observation if not/ Cephalexin 500mg four times per day x 7 days/ Bactrim DS BID x 7 days/ Clindamycin 300mg four times per day x 7 days/ Doxycycline 100mg BID x 7 days/ Azithromycin 500mg day 1, then 250mg for 4 days/ Augmentin 500mg BID x 7 days/ Tamiflu 75mg BID x 5 days/ Tylenol as needed for fever/ Encourage adequate water intake Goals Date Goal 2024-06-08 Continue taking medi cations as directed and keep all follow up appointments with established PCP and Specialist. Health Concerns Date Concern 2024-06-08 [facility] Visit completed by audio and video. Patient/Guardian agreed to visit via telehealth. Introductory visit with [facility] to establish care. Today, patient has chief complaint of: establishing care.Reviewed Allergies, Medications, Active Medical conditions, past medical/surgical history, Social history. 2024-06-08 Most recent hospital stay(s) or ER visit(s) and precipitating factors: No 2024-06-08 Has AD. Daughter Clinton Temple. Full code. 2024-06-08 Open HEDIS Measure r christiane: Yes
== END 2024-06-09 10:15 | disposition home or self-care (01) ==
PROVIDERS: PCP Internal Medicine; Visit Provider Family Medicine
DX: Z00.00 Encounter for general adult medical examination without abnormal findings (principal); I10 Essential (primary) hypertension; E11.69 Type 2 diabetes mellitus with other specified complication; R74.8 Abnormal levels of other serum enzymes; E78.5 Hyperlipidemia, unspecified; Z12.11 Encounter for screening for malignant neoplasm of colon; Z12.5 Encounter for screening for malignant neoplasm of prostate

== ENCOUNTER → 2024-06-09 08:48 | Outpatient (BNVA) | payer OTHER, SELFPAY | PROVIDERS: PCP Internal Medicine; Visit Provider Family Medicine | DX: Z00.00 Encounter for general adult medical examination without abnormal findings (principal); I10 Essential (primary) hypertension; E11.9 Type 2 diabetes mellitus without complications; R74.8 Abnormal levels of other serum enzymes; E78.5 Hyperlipidemia, unspecified | CPT/HCPCS: 83036; 96127; 99212; 99397 ==

== ENCOUNTER 2024-07-15 08:17 | Outpatient (REF) | payer OTHER, MEDICAID, SELFPAY ==
--- NOTE | ~2024-07-15 | US_ITS ---
EXAMINATION: US ABDOMEN LIMITED WITH LIVER ELASTOGRAPHY HISTORY: R74.8 - Abnormal levels of other serum enzymes TECHNIQUE: Real-time grayscale ultrasound imaging of the right upper quadrant was performed and images were reviewed. COMPARISON: Comparison is made with the prior examinations dated 04/16/2022 and 09/04/2021. FINDINGS: Liver: The right lobe of the liver measures 15.4 cm in size. The left lobe of the liver measures 8.5 cm in size. The liver demonstrates increased echotexture, consistent with steatosis. There is a 1.1 x 0.7 x 1.3 cm cyst in the left lobe. No intrahepatic biliary ductal dilatation is identified. There is normal hepatopedal flow in the portal vein. Ultrasound elastography of the liver was performed with 10 separate measurements of the liver parenchyma with the patient in the supine position. Measurements were obtained approximately 2 cm below Clay's capsule and perpendicular to the capsule. Images are of satisfactory quality. The median shear wave velocity is 1.55 m/s (previously 1.69 m/s). The interquartile range/median (IQR/median) is 0.15. Gallbladder and biliary tree: The gallbladder is unremarkable, without evidence of calculi, wall thickening, or pericholecystic fluid. There is no sonographic Diaz sign. The common bile duct is normal in caliber measuring 4 mm. Right Kidney: The right kidney measures 9.3 cm in length. The right kidney is unremarkable, without evidence of masses, hydronephrosis, or calculi. Pancreas: The pancreatic head, neck, and body are unremarkable. The pancreatic tail is obscured by bowel gas. Abdominal aorta and inferior vena cava: The visualized portions of the abdominal aorta and inferior vena cava are normal in caliber. There is no free fluid in the right upper quadrant. US/US abdomen sol w elastography IMPRESSION: Hepatic steatosis. The median shear wave velocity in the liver is 1.55 m/s, corresponding to a median liver stiffness of 7.22 kPa. The IQR/median value is 0.15. This is indicative of a poor quality data set, and the estimated liver stiffness may be unreliable. Findings are indicative of a low elastography value which rules out advanced chronic liver disease in asymptomatic patients. REFERENCE: Society of Radiologists in Ultrasound Liver Stiffness Thresholds (2020): LIVER STIFFNESS THRESHOLDS: *Shear wave velocity less than 1.3 m/s (Liver Stiffness equal or less than 5 kPa): High probability of being normal. *Shear wave velocity less than 1.7 m/s (Liver Stiffness less than 9 kPa): In the absence of other known clinical signs, rules out compensated advanced chronic liver disease. *Shear wave velocity between 1.7-2.1 m/s (Liver Stiffness 9-13 kPa): Suggestive of compensated advanced chronic liver disease but need further test for confirmation. *Shear wave velocity between 2.1-2.4 m/s (Liver Stiffness 13-17 kPa): Rules in compensated advanced chronic liver disease. *Shear wave velocity greater than 2.4 m/s (Liver Stiffness over 17 kPa): Suggestive of clinically significant portal hypertension. QUALITY OF DATA SET: *IQR/Median value equal or less than 0.15 implies a quality data set. *IQR/Median value over 0.15 implies a poor quality data set. SIGNIFICANT CHANGE FROM PRIOR EXAM: Significant change if liver stiffness measurement is 10% or greater from prior exam. OTHER CONSIDERATIONS: The stage of liver fibrosis may be overestimated in the setting of acute hepatitis, liver inflammation, elevated liver function tests, hepatic vascular congestion, obstructive cholestasis, non-fasting state, and infiltrative diseases such as amyloidosis and lymphoma. In some patients with NAFLD, the liver stiffness thresholds for compensated advanced chronic liver disease may be lower. In causes other than viral hepatitis and NAFLD, liver stiffness thresholds are not well established. Electronically signed by: Sajan Rasmussen MD 07/15/2024 09:27 AM EDT
--- OUTSIDE RECORDS SUMMARY | 2024-07-15 08:21 | XMS_ITS ---
Author Name Esmer Fernandez NP Address [address] [place] [address] Phone [phone] Organization [facility] Care Team Providers Care Civil Draftsman Name Role Phone Esmer Fernandez Unavailable [phone] Reason for Referral Not Available Allergies, adverse [...] Active 2024 N/A Other problems related to [facility] facilities and other health care Active 2024-06-08 N/A Smoker Active 2024-06-08 N/A BPH (benign prostatic hyperplasia) Active 3-04 N/A HTN (hypertension) Active 2024-06-07 N/A Encounters Encounters Type Facility Date of Service Diagnosis/Co mplaint New patient, 30-44min 1 stable chronic or 2 minor; add modifier 95 for video, modifier 93 for phone [facility] ([place]) 06/08/2024 Type 2 diabetes mellitus wit h diabetic neuropathy, unspecifiedRheumatoid arthritis, unspecifiedImmunodeficiency, unspecifiedEssential (primary) hypertensionType 2 diabetes mellitus with other specified complicationHyperlipidemia, unspecifiedEnlarged prostate without lower urinary tract symptomsNicotine dependence, unspecified, uncomplicatedOther problems related to medical facilities and other health care New patient, 30-44min 1 stable chronic or 2 minor; add modifier 95 for video, modifier 93 for phone [facility], ([place] 06/08/2024 New patient, 30-44min 1 stable chronic or 2 minor; add modifier 95 for video, modifier 93 for phone [facility], ([place] 06/08/2024 New patient, 30-44min 1 stable chronic or 2 minor; add modifier 95 for video, modifier 93 for phone [facility] ([place] 06/08/2024 New patient, 30-44min 1 stable chronic or 2 minor; add modifier 95 for video, modifier 93 for phone [facility] [place] 06/08/2024 New patient, 30-44min 1 stable chronic or 2 minor; add modifier 95 for video, modifier 93 for phone [facility] ([place] 06/08/2024 New patient, 30-44min 1 stable chronic or 2 minor; add modifier 95 for video, modifier 93 for phone [facility] ([place] 06/08/2024 Vital Signs Date of Collection Vitals 2024-06-08 06:45:38 Height - 160.02 cmWe ight - 69.85 kgBody Mass Index (BMI) - 27.28 kg/m2BP Diastolic - 80.0 mm[Hg]BP Systolic - 139.0 mm[Hg]Pain Scale - 7.0 {score} Social History Social History Social History Observation Description Effec tive Time Current Smoking Status Current every day smoker 2024 Sex Male History of Procedures Procedures Service Procedure code Service date Servicing provider Phone# New patient, 30-44min 1 stable chronic or 2 minor; add modifier 95 for video, modifier 93 for phone [id number] No Data Available No Data Available Medication Review by prescribing provider or pharmacist documented (1160F) 1160F 2024-06-08 No Data Available No Data Capri ilable SBP 130-139 (3075F) 3075F 2024-06-08 No Data Availabl e No Data Available DBP 80-89 (3079F) 3079F 2024-06-08 No Data Available No Data Available Pain Assessment - Pain Documented on a Pain Scale (1125F) 1125F 2024-06-08 No Data Available No Data Capri ilable Medication List Documented (1159F) 1159F 2024-06-08 No Data Available No Data Capri ilable Functional Status Assessed (1170F) 1170F 2024-06-08 No Data Available No Data Avail able Functional Status Functional Category Effective Dates Cognition [...] 122, 90s's usually- at times to 140 Hospital Cook- No 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 2024-06-08 Open HEDIS Measure r kofiw: Yes
--- OUTSIDE RECORDS SUMMARY | 2024-07-15 08:21 | XMS_ITS | Clinical Summary ---
Author Organization [facility] Address [address] [place] [address] Care Team Providers Care Ice Scraper Name Role Phone Unavailable Primary Care Provider [...] Take by mouth 4 times daily. Active doxycycline (Vibra-Tabs) 50 MG tablet Take 2 tablets (100 mg) by mouth 2 times daily for 10 days. Take with a full glass of water and do not lie down for at least 30 minutes after. 40 tablet 06/30/2024 07/11/19 25 chlorhexidine (Peridex) 0.12 % solution Use 15 mL in the mouth or throat if needed for wound care for up to 14 days. 473 mL 06/30/2024 07/15/19 25 Encounters Date Type Department Care Team Description 06/30/2024 9:00 AM EDT Office Visit [facility] [address] [place] [address] [phone] Abby Mondragon Periodontal disease (Primary Dx) from Last 3 Months Social History Tobacco Use Types Packs/Day Years [...] Don't know 01/04/2024 10 :31 AM EDT Last Filed Vital Signs Vital Sign Reading Time Taken Comments Blood Pressure 134/74 06/30/2024 9:11 AM EDT Pulse 83 06/30/2024 9:11 AM EDT Temperature - - Respiratory Rate - - Oxygen Saturation - - Inhaled Oxygen Concentration - - Weight - - Height - - Body Mass Index - - Plan of Treatment Upcoming Encounters Date Type Department Care Team (Late st Contact Info) Description 08/01/2024 11:00 AM EDT Office Visit [facility] [address] [place] [address] [phone] Sierra Crawford BDS [address] [place], [place] [id number] Health Maintenance Due Date Last Done Comments CT Colonography 1957 Colonoscopy 1957 Colorectal Cancer Screening 1957 Dental Prophylaxis 1957 Depression Screening 1957 FIT DNA/Cologuard 1957 FIT 1957 FOBT 1957 Lipid Panel 1957 SDOH Screening 1957 Sigmoidoscopy 1957 Alcohol/Substance Use Screening 1969 Hepatitis C Screening 07/16/1975 Hepatitis A Vaccines (1 of 2 - Risk 2-dose series) 1976 Zoster Vaccines (1 of 2) 07/16/2007 DTaP/Tdap/Td Vaccines (1 - Tdap) 10/21/2016 10/20/2016 Hepatitis B Vaccines (1 of 3 - Risk 3-dose series) 2017 RSV Patients and Patients Aged 60 years or older (1 - Risk 60-74 years 1-dose series) 2017 Pneumococcal Vaccine: 50+ Years (3 of 3 - PCV20 or PCV21) 06/16/2023 06/15/2018, 10/20/2016 Dental Oral Exam 01/01/2025 06/30/2024 Tobacco Screening 06/30/2025 06/30/2024 Dental X-Ray: Bitewings 07/01/2025 06/30/2024 Dental X-Ray: Full Mouth 07/02/2027 06/30/2024 COVID-19 Vaccine Completed 12/21/2023, , 05/16/2021, Additional history exists Influenza Vaccine Completed 12/21/2023, , 01/08/2023, Additional history exists HIB Vaccines Aged Out No longer eligi [...] on patient's age to complete this topic Procedures Procedure Name Priority Date/Time Associated Diagnosis Comments COMPREHENSIVE ORAL EVALUATION - NEW OR ESTABLISHED PATIENT Routine 06/30/2024 9:00 AM EDT INTRAORAL - COMPLETE SERIES OF RADIOGRAPHIC IMAGES Routine 06/30/2024 9:00 AM EDT 24 L COMPOSITE FILLING Routine 12:00 AM EDT 10 L COMPOSITE FILLING Routine 12:00 AM EDT 30 CROWN - PORCELAIN/CERAMIC Routine 06/30/2024 12:00 AM EDT 20 CROWN - PORCELAIN/CERAMIC Routine 06/30/2024 12:00 AM EDT 19 CROWN - PORCELAIN/CERAMIC Routine 06/30/2024 12:00 AM EDT 18 CROWN - PORCELAIN/CERAMIC Routine 06/30/2024 12:00 AM EDT 13 CROWN - PORCELAIN/CERAMIC Routine 06/30/2024 12:00 AM EDT 3 CROWN - PORCELAIN/CERAMIC Routine 06/30/2024 12:00 AM EDT 2 CROWN - PORCELAIN/CERAMIC Routine 06/30/2024 12:00 AM EDT 30 PREFABRICATED POST AND CORE IN ADDITION TO CROWN Routine 06/30/2024 12:00 AM EDT 20 PREFABRICATED POST AND CORE IN ADDITION TO CROWN Routine 06/30/2024 12:00 AM EDT 19 PREFABRICATED POST AND CORE IN ADDITION TO CROWN Routine 06/30/2024 12:00 AM EDT 18 PREFABRICATED POST AND CORE IN ADDITION TO CROWN Routine 06/30/2024 12:00 AM EDT 13 PREFABRICATED POST AND CORE IN ADDITION TO CROWN Routine 06/30/2024 12:00 AM EDT 3 PREFABRICATED POST AND CORE IN ADDITION TO CROWN Routine 06/30/2024 12:00 AM EDT 2 PREFABRICATED POST AND CORE IN ADDITION TO CROWN Routine 06/30/2024 12:00 AM EDT 30 ROOT CANAL Routine 06/30/2024 12:00 AM EDT 24 ROOT CANAL Routine 06/30/2024 12:00 AM EDT 20 ROOT CANAL Routine 06/30/2024 12:00 AM EDT 19 ROOT CANAL Routine 06/30/2024 12:00 AM EDT 18 ROOT CANAL Routine 06/30/2024 12:00 AM EDT 13 ROOT CANAL Routine 06/30/2024 12:00 AM EDT 10 ROOT CANAL Routine 06/30/2024 12:00 AM EDT 3 ROOT CANAL Routine 06/30/2024 12:00 AM EDT 2 ROOT CANAL Routine 06/30/2024 12:00 AM EDT 17 EXTRACTION Routine 06/30/2024 12:00 AM EDT 16 EXTRACTION Routine 06/30/2024 12:00 AM EDT 32 EXTRACTION Routine 06/30/2024 12:00 AM EDT 1 EXTRACTION Routine 06/30/2024 12:00 AM EDT from Last 3 Months Insurance [facility]
== END 2024-07-15 08:18 | disposition home or self-care (01) ==
LOC: HO.US 08:17
PROVIDERS: PCP Internal Medicine; Visit Provider Family Medicine
DX: R74.8 Abnormal levels of other serum enzymes (principal)
CPT/HCPCS: 76705; 76981

== ENCOUNTER → 2024-07-15 08:19 | Outpatient (BNV) | payer OTHER, MEDICAID, SELFPAY | PROVIDERS: PCP Internal Medicine; Visit Provider Radiology Diagnostic Radiology | DX: R74.8 Abnormal levels of other serum enzymes (principal) | CPT/HCPCS: 76705; 76981 ==

== ENCOUNTER 2024-09-01 09:22 | Outpatient (AMB) | payer OTHER, MEDICAID, SELFPAY ==
--- NOTE | 2024-09-01 09:31 | A.OFFVIS_ITS ---
Vital Signs 09/01/24 09:36 Height 5 ft 3 in Weight 158 lb 4.67 oz BMI 28.0 BP 140/80 H Blood Pressure Location Lt brachial Position Sitting Pulse 72 Pulse Source Pulse Oximeter Pulse Oximetry (%) 98 Oxygen Delivery Method Room Air Intake Visit Reasons: RA Intake Note: Patient presents for RA follow up. Allergies ibuprofen Allergy (Severe, Verified 09/01/24 09:35) stomach ulcer Medication List - Last Reconciled 09/01/24 by Shaylee Moffett MD alcohol swabs (Alcohol Prep Pads) pad topical amlodipine 5 mg PO DAILY 90 days atorvastatin 10 mg PO DAILY 90 days blood sugar diagnostic (FreeStyle Lite Strips) As directed gabapentin 300 mg PO BEDTIME 30 days glipizide ER 2.5 mg PO DAILY 90 days lancets (FreeStyle Lancets) As directed lisinopril 40 mg PO DAILY 90 days metformin ER 500 mg PO DAILY 90 days sitagliptin phosphate (Januvia) 100 mg PO DAILY 90 days sulfasalazine 500 mg PO BID HPI Comments Details: Patient is a 69-year-old male with hypertension, hyperlipidemia, diabetes, nonalcoholic fatty liver disease and seronegative rheumatoid arthritis here today for follow up Interval History: Patient last seen 04/18/[address] Lyle. At that time he was following up for her seronegative rheumatoid arthritis on sulfasalazine 500 mg twice a day which was well tolerated. He was complaining of some right wrist pain swelling and stiffness that usually occurs during the winter. On exam he had very subtle synovitis affecting his right wrist but declined increasing sulfasalazine from 500 mg twice a day to 3 times a day. Today, Patient states that his right wrist has improved on its own without additional medication No joint pain complaints Having left outer buttock pain Rheumatologic History: Seronegative rheumatoid arthritis, MRI in 2019 showed synovitis bilaterally. Methotrexate 01/2017-June 2020 self discontinued after COVID Sulfasalazine 11/2018- present prev on 1.5 g daily now 1 g daily . effective Current Rheumatology Medication(s): Sulfasalazine 500mg bid [facility] Medical History Seronegative rheumatoid arthritis Surgical History No history of previous surgery Social History Housing: House Alcohol intake: current Alcohol intake frequency: holidays/special occasions only Patient Tobacco Use Status: Current everyday Tobacco user Cigarettes Per Day: 5 Years Smoked: quit 10-12 years ago e-Cigarette/Vaping Use: Never Used Second Hand Smoke Exposure: No service: No Current occupational status: disabled Cognitive needs: No Hearing needs: No Vision needs: Yes Review of Systems Const Details: Review of Systems Constitutional: Denies fever, chills, weight loss ENT: Denies vision changes, eye pain or eye redness, dental caries, dry mouth GI: Denies nausea, vomiting, diarrhea, abdominal pain, change in BM Pulm: Denies SOB, VALERIO, hemoptysis, wheezing Cards: Denies chest pain, palpitations Skin: Denies Raynaud's, rash, nail changes, photosensitivity, 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 Well appearing and in no apparent painful distress HEENT Conjunctiva and sclera clear. ?Pupils equal round and reactive to light. ?No lymphadenopathy. ? CHEST/RESPIRATORY SYSTEM Normal respiratory effort and able to speak in complete sentences. ?Clear to auscultation bilaterally. ?No crackles, rales, rhonchi, wheezes heard. CARDIAC SYSTEM Regular rate and rhythm. ?S1 and S2 heard no murmurs. ?Radial pulses intact bilaterally MSK Hands: ?Able to make a fist. No synovitis noted to the MCPs, PIPs or DIPs. ?No tenderness to palpation of these joints. No deformities noted. ? Wrists: ?Full range of motion at the wrists without pain. ?No tenderness to palpation or synovitis noted to the wrists. Elbows: Full range of motion without pain. No tenderness, weakness, swelling, increased warmth or erythema. Shoulders: Full range of active range of motion without pain. No tenderness, weakness, swelling, increased warmth or erythema. Hips: Full range of motion without pain. Hip bursa: TTP of the left hip bursa Knees: ?Full range of motion. ?No tenderness, swelling, increased warmth or erythema.? Crepitations felt Ankles: Full range of motion. ?No tenderness, swelling, increased warmth or erythema.? Feet: ?Negative squeeze test. ?No tenderness to palpation or swelling of the MTPs. Tender points:?No tenderness to palpation of the bilateral trapezius, supraspinatus, greater trochanters, anterior costochondral junctions, bilateral gluteal areas, bilateral suboccipital muscle insertions SKIN Skin intact without rashes. Results Reviewed Results Reviewed: Laboratory Tests 04/13/24 09:19 WBC 7.5 RBC 4.96 Hgb 16.4 Hct 44.7 Plt Count 162 ESR 2 Sodium 141 Potassium 3.6 Chloride 112 H Carbon Dioxide 21 L BUN 10 Creatinine 0.82 AST 34 ALT 55 H C-Reactive Protein 0.13 Assessment & Plan Assessment & Plan (1) Seronegative rheumatoid arthritis: Comment: Seronegative rheumatoid arthritis, MRI in 2019 showed synovitis bilaterally. Methotrexate 01/2017-June 2020 self discontinued after COVID Sulfasalazine 11/2018- present prev on 1.5 g daily now 1 g daily . effective Code(s): M06.00 - Rheumatoid arthritis without rheumatoid factor, unspecified site Category: Medical Plan: #Seronegative RA Patient is a 69-year-old male with seronegative rheumatoid arthritis here today for follow up. Currently in remission/low disease activity on sulfasalazine monotherapy Exercises given for the left greater trochanteric bursitis Plan - Sulfasalzine 500mg bid - Labs today: CBC, CMP, ESR, CRP - RTC 6 months - Labs before visit: CBC, CMP, ESR, CRP (2) LANE (nonalcoholic steatohepatitis): Comment: BASELINE Laboratory Tests 08/23/21 PT 12.2 INR 1.1 Estimated GFR > 60 Hemoglobin A1c % 7.9 Ferritin 214 Total Bilirubin 0.6 GGT 48 AST 27 ALT 49 H Alkaline Phosphatase 55 C-Reactive Protein 0.52 H Alpha Fetoprotein 2.9 CHANCE Screen NEGATIVE Anti-Mitochondrial Ab NEGATIVE Anti-Smooth Muscle Ab <20 Plt Count 192 Hepatitis A IgM Ab Nonreactive Hep Bs Antigen Negative Hep Bs Antibody REACTIVE Hep B Core Total Ab Reactive Hepatitis C Ab (EIA) Nonreactive HIV 1&2 Ab/P24 Ag 4thGn Nonreactive Ultrasound with elastography equals F1 HBsAG Negative Negative ULTRASOUND OF THE ABDOMEN 09/06/21 (F1) CURRENT LABS 07/18/22 Plt Count 208 Direct Bilirubin 0.2 Alpha Fetoprotein 3.2 Total Bilirubin 0.7 AST 33 ALT 55 H Alkaline Phosphatase 58 ULTRASOUND OF THE ABDOMEN 04/18/22? FINDINGS: PANCREAS: Normal. LIVER: Prominent enlarged measuring up to 18.7 cm The liver contour is normal. Left lobe cyst measures 12 mm There is no intrahepatic biliary duct dilatation seen. Diffuse increased echogenicity consistent with fatty infiltration GALLBLADDER: Normal. The gallbladder is physiologically distended without evidence of stones, sludge, polyps, wall thickening or pericholecystic fluid. COMMON BILE DUCT: Normal in caliber measuring 0.7 cm in diameter. RIGHT KIDNEY: Normal. No hydronephrosis. No renal calculi or focal parenchymal lesions. The kidney measures 9.4 cm in maximum dimension. FREE FLUID: None. US/US abdomen limited IMPRESSION: Hepatomegaly changes of diffuse hepatic steatosis. No gallstones FINDINGS: PANCREAS: Normal. The visualized pancreatic head and body are normal in appearance. The remainder of the pancreas is obscured from visualization by the overlying bowel gas.? ABDOMINAL AORTA: The proximal, middle, and distal aortic segments are normal in caliber.? INFERIOR VENA CAVA: Visualized portions are normal.? LIVER: The liver demonstrates normal size, contour and increased echogenicity with areas of focal fatty sparing in the gallbladder. No focal lesion or intrahepatic biliary duct dilatation. The right lobe measures 18.6 cm in length. The left lobe measures 10.5 cm in length.? Portal flow is hepatopedal. Shear wave liver elastography median stiffness is 1.69 m/s (reference: normal median stiffness is 1.3 m/s or less). IQR/median stiffness to assess sampling precision is 0.04 (reference: good quality data set is IQR/median stiffness of 0.15 or less). GALLBLADDER: There are focal small echogenic areas along the gallbladder wall suggestive of adenomyomatosis. The gallbladder is physiologically distended without evidence of stones, sludge, polyps, wall thickening or pericholecystic fluid.? COMMON BILE DUCT: Normal in caliber measuring 0.4 cm in diameter. RIGHT KIDNEY: Normal. No hydronephrosis. No renal calculi or focal parenchymal lesions. The kidney measures 9.8 cm in maximum dimension. LEFT KIDNEY: There is an anechoic cyst in midpole measuring 2.2 x 1.3 x 1.5 cm and the largest lower pole cyst measures 3.4 x 3.8 x 3.4 cm. No hydronephrosis. No renal calculi or focal parenchymal lesions. The kidney measures 10.6 cm in maximum dimension. SPLEEN: Normal. The spleen measures 11.1 cm in maximum dimension. FREE FLUID: None.? US/US abdomen comp w elastography IMPRESSION: 1. Hepatic steatosis with areas of focal fatty sparing of the gallbladder. ? Focal adenomyomatosis along the inner gallbladder wall. ? 2. Liver elastography: Median liver stiffness measures 1.69 m/s corresponding to cACLD ? ? ? (ruled out). Code(s): K75.81 - Nonalcoholic steatohepatitis (LANE) Category: Medical Plan: #ALNE Patient with mild transaminitis secondary to known alcoholic fatty liver disease. Liver elastography showed no evidence of cirrhosis Discussed limiting fatty food intake, alcohol and [id number] Tylenol/ibuprofen (3) Encounter for monitoring sulfasalazine therapy: Code(s): Z51.81 - Encounter for therapeutic drug level monitoring; Z79.899 - Other prison classification counselor (current) drug therapy Plan: #Long-term Use of Sulphasalazine Discussed with patient the risks and benefits of sulfasalazine in the management of the rheumatic condition Benefits include: - Reduced pain, reduce mortality, maintenance of remission then reduction of flares Risks include: - GI upset, hemolysis (especially if G6PD deficiency), eosinophilia, headache, dizziness, rash, elevated LFTs Plan I spent 25 minutes reviewing the record and labs, taking a history, examining the patient, discussing the treatment plan, ordering diagnostic work up and documenting in the medical record Orders: Orders Erythrocyte Sedimentation Rate 6 Months M06.00 - Rheumatoid arthritis without rheumatoid factor, unspecified site Complete Blood Count Auto Diff Today M06.00 - Rheumatoid arthritis without rheumatoid factor, unspecified site Complete Blood Count Auto Diff 6 Months M06.00 - Rheumatoid arthritis without rheumatoid factor, unspecified site Comprehensive Met. Panel 6 Months M06.00 - Rheumatoid arthritis without rheumatoid factor, unspecified site C Reactive Protein 6 Months M06.00 - Rheumatoid arthritis without rheumatoid factor, unspecified site Comprehensive Met. Panel Today M06.00 - Rheumatoid arthritis without rheumatoid factor, unspecified site C Reactive Protein Today M06.00 - Rheumatoid arthritis without rheumatoid factor, unspecified site Erythrocyte Sedimentation Rate Today M06.00 - Rheumatoid arthritis without rheumatoid factor, unspecified site Medications: Changed From sulfasalazine 500 mg PO BID 200 tabs 2RF M06.00 - Rheumatoid arthritis without rheumatoid factor, unspecified site To sulfasalazine 500 mg PO BID 90 days 180 tabs 1RF M06.00 - Rheumatoid arthritis without rheumatoid factor, unspecified site Coding Level of Care Code Est Pt Level 3 (55032) Complex EM visit Add On G2211 Diagnoses Seronegative rheumatoid arthritis M06.00 LANE (nonalcoholic steatohepatitis) K75.81 Encounter for monitoring sulfasalazine therapy Z51.81; Z79.899
[2024-09-01 09:36] VITALS: BP 140/80; PULSE 72; O2SAT 98; BMI 28.0
--- OUTSIDE RECORDS SUMMARY | 2024-09-01 09:45 | XMS_ITS | Clinical Summary ---
Author Organization [employer] Address [address] [facility] [facility] [address] [place] [address] Care Team Providers Care Retail Sales Vitamin Consultant Name Role Phone Unavailable Primary Care Provider [...] by mouth 4 times daily. Active doxycycline (Vibramycin) 100 MG capsule Take 1 capsule (100 mg) by mouth Once per day for 14 days. Take with at least 8 ounces (large glass) of water, do not lie down for 30 minutes after 14 capsule 08/01/2024 08/16/19 25 Active Problems Problem Noted Date Diagnosed Date Back pain 08/01/2024 [place]a palsy 08/01/2024 Chronic neck and back pain 08/01/2024 Dysphagia 08/01/2024 Bilateral tinnitus 08/01/2024 Elevated transaminase level 08/01/2024 Hepatic cyst 08/01/2024 Hyperlipidemia 08/01/2024 Hypertension 08/01/2024 Renal cyst, left 08/01/2024 Peyronie disease 08/01/2024 Neck pain on left side 08/01/2024 Lyme disease 08/01/2024 Knee pain, left 08/01/2024 Seronegative rheumatoid arthritis 08/01/2024 Sicca syndrome 08/01/2024 Encounters Date Type Department Care Team Description 08/22/2024 10:00 AM EDT Office Visit [facility] [address] [place] [phone] Edilma Crawfordsid BDJamison Partially edentulous maxilla, unspecified edentulism class (Primary Dx) 08/01/2024 11:00 AM EDT Office Visit [facility] [address] [place] [phone] Sierra Crawford BDS Periodontal abscess (Primary Dx) 06/30/2024 9:00 AM EDT Office Visit [facility] [address] [place] [phone] Abby Mondragon Periodontal disease (Primary Dx) from [...] Sign Reading Time Taken Comments Blood Pressure 138/78 08/01/2024 10:57 AM EDT Pulse 83 06/30/2024 9:11 AM EDT Temperature - - Respiratory Rate - - Oxygen Saturation - - Inhaled Oxygen Concentration - - Weight - - Height - - Body Mass Index - - Plan of Treatment Upcoming Encounters Date Type Department Care Team (Late st Contact Info) Description 09/07/2024 11:00 AM EDT Office Visit [facility] [address] [place] [phone] Sierra Crawford INAS [address] [place] [phone] Health Maintenance Due Date Last Done Comments [...] - PCV20 or PCV21) 06/16/2023 06/15/2018, 10/20/2016 COVID-19 Vaccine ( season) 2024 12/21/2023, 01/24/2022, 05/16/2021, Additional history exists Dental Oral Exam 01/01/2025 06/30/2024 Dental X-Ray: Bitewings 07/01/2025 06/30/2024 Tobacco Screening 08/22/2025 08/22/2024 Dental X-Ray: Full Mouth 07/02/2027 06/30/2024 Influenza Vaccine Completed 12/21/2023, , 01/08/2023, Additional history exists HIB Vaccines Aged Out No longer eligi ble based on patient's age to complete this topic HPV Vaccines Aged Out No longer eligi ble based on patient's age to complete this topic IPV Vaccines Aged Out No longer eligi ble based on patient's age to complete this topic Meningococcal B Vaccine Aged Out No l onger eligible based on patient's age to complete [...] Procedure Name Priority Date/Time Associated Diagnosis Comments DIGITAL SCAN FOR DENTURES Routine 2024 10:00 AM EDT 9 EXTRACTION, ERUPTED TOOTH OR EXPOSED ROOT (ELEVATION/FORCEPS REMOVAL) Routine 08/01/2024 11:00 AM EDT COMPREHENSIVE ORAL EVALUATION - NEW OR ESTABLISHED [...] AM EDT from Last 3 Months Insurance DENTAL FOR[facility]
== END 2024-09-01 09:57 | disposition home or self-care (01) ==
PROVIDERS: PCP Family Medicine; Visit Provider Student in an Organized Health Care Education/Training Program
DX: M06.00 Rheumatoid arthritis without rheumatoid factor, unspecified site (principal); K75.81 Nonalcoholic steatohepatitis (NASH); Z51.81 Encounter for therapeutic drug level monitoring; Z79.899 Other long term (current) drug therapy
CPT/HCPCS: 99213; G2211

== ENCOUNTER 2024-09-01 09:22 | Outpatient (REF) | payer OTHER, SELFPAY ==
[2024-09-01 10:24] LABS: MANUAL DIFF FLAG NO
[2024-09-01 10:59] LABS: Basophils Absolute Auto 0.1 X10*3/uL (0.0-0.2); Basophils Percent Auto 0.7 % (0-2); Eosinophils Absolute Auto 0.4 X10*3/uL (0.0-0.4); Eosinophils Percent Auto 4.7 % (0-4); Hematocrit 44.6 % (42.0-52.0); Hemoglobin 16.5 g/dl (14.0-18.0); Imm Gran Abs Auto 0.03 X10*3/uL (0.00-0.03); Imm Gran Pct Auto 0.4 % (0.0-0.4); Lymphocytes Absolute Auto 2.1 X10*3/uL (1.2-4.9); Lymphocytes Percent Auto 24.5 % (20-40); Mean Corpuscular Volume 91.8 fL (80.0-98.0); Mean Platelet Volume 10.9 fL (9.4-12.4); Monocytes Absolute Auto 0.9 X10*3/uL (0.1-1.2); Monocytes Percent Auto 10.4 % (2-11); Neutrophils Percent Auto 59.3 % (45-73); Platelet Count 185 X10*3/uL (160-400); Red Blood Count 4.86 X10*6/uL (4.60-5.80); Red Cell Distribution Width 13.6 % (11.0-16.0); White Blood Count 8.5 X10*3/uL (4.8-10.8)
[2024-09-01 11:26] LABS: Alanine Aminotransferase 55 U/L (0-40); Albumin Level 4.5 g/dL (3.5-5.0); Alkaline Phosphatase 42 U/L (39-117); Anion Gap 12 (12-20); Aspartate Amino Transferase 36 U/L (5-37); Bilirubin Total 0.5 mg/dL (0.0-1.0); Blood Urea Nitrogen 15 mg/dL (9-16); C Reactive Protein 0.22 mg/dL (< or = 0.50); Calcium 9.6 mg/dL (8.4-10.2); Carbon Dioxide 26 mmol/L (22-29); Chloride 108 mmol/L (96-108); Estimated Glomerular Filt Rate > 60; Glucose Random 160 mg/dL (60-115); Potassium 3.7 mmol/L (3.3-5.1); Sodium 142 mmol/L (135-145); Total Protein 7.5 g/dL (6.5-8.0)
[2024-09-01 11:41] LABS: Erythrocyte Sedimentation Rate 5 MM/HR (0-15)
== END 2024-09-01 09:23 | disposition home or self-care (01) ==
LOC: HO.LAB 09:22
PROVIDERS: PCP Family Medicine; Visit Provider Student in an Organized Health Care Education/Training Program
DX: M06.00 Rheumatoid arthritis without rheumatoid factor, unspecified site (principal)
CPT/HCPCS: 36415; 80053; 85025; 85652; 86140

== ENCOUNTER 2024-09-15 08:21 | Outpatient (AMB) | payer OTHER, MEDICAID, SELFPAY ==
--- OUTSIDE RECORDS SUMMARY | 2024-09-15 08:28 | XMS_ITS | Clinical Summary ---
Author Organization [employer] Address [address] [facility] [address] [place] [address] Care Team Providers Care Night Custodian Name Role Phone Unavailable Primary Care Provider [...] Take by mouth 4 times daily. Active Active Problems Problem Noted Date Diagnosed Date [...] Encounters Date Type Department Care Team Description 09/07/2024 11:00 AM EDT Office Visit [facility] [address] [place] [phone] Sierra Crawford BDS 08/22/2024 10:00 AM EDT Office Visit [facility] [address] [place] [address] [phone] Sierra Crawford, BDS Partially edentulous maxilla, unspecified edentulism class (Primary Dx) 08/01/2024 11:00 AM EDT Office Visit [facility] [address] [place] [phone] Sierra Crawford BDS Periodontal abscess (Primary Dx) 06/30/2024 9:00 AM EDT Office Visit [address] [phone] Abby Mondragon Periodontal disease (Primary Dx) from [...] Mass Index - - Plan of Treatment Health Maintenance Due Date Last Done Comments [...] Dental X-Ray: Bitewings 07/01/2025 06/30/2024 Tobacco Screening 09/07/2025 09/07/2024 Dental X-Ray: Full Mouth 07/02/2027 06/30/2024 Influenza [...] Procedure Name Priority Date/Time Associated Diagnosis Comments WAX TRY IN Routine 09/07/2024 11:00 AM EDT DIGITAL SCAN FOR DENTURES Routine 2024 10:00 AM EDT 9 EXTRACTION, ERUPTED TOOTH OR EXPOSED ROOT (ELEVATION/FORCEPS REMOVAL) Routine 08/01/2024 11:00 AM EDT COMPREHENSIVE ORAL EVALUATION - NEW OR ESTABLISHED PATIENT Routine 06/30/2024 9:00 AM EDT INTRAORAL - COMPLETE SERIES OF RADIOGRAPHIC IMAGES Routine 06/30/2024 9:00 AM EDT 24 L COMPOSITE FILLING Routine 5 12:00 AM EDT 10 L COMPOSITE FILLING [...] EDT from Last 3 Months Insurance DENTAL - [facility]
--- NOTE | 2024-09-15 08:41 | A.OFFPC_ITS ---
Vital Signs 09/15/24 08:43 Height 5 ft 3 in Weight 160 lb 6 oz BMI 28.4 BP 120/68 Blood Pressure Location Lt brachial Position Sitting Respiration 14 Pulse 72 Pulse Source Pulse Oximeter Temp 97.8 F Temp Source Oral Pulse Oximetry (%) 95 Oxygen Delivery Method Room Air Intake Visit Reasons: F/U diabetes, HTN and elevated liver enzymes. Intake Note: follow up dm and lab review Traffic Control Officer Required: No Allergies ibuprofen Allergy (Severe, Verified 09/15/24 08:42) stomach ulcer Medication List - Last Reconciled 09/15/24 by Cesar Castellanos MD alcohol swabs (Alcohol Prep Pads) pad topical amlodipine 5 mg PO DAILY 90 days atorvastatin 10 mg PO DAILY 90 days blood sugar diagnostic (FreeStyle Lite Strips) As directed gabapentin 300 mg PO BEDTIME 30 days glipizide ER 2.5 mg PO DAILY 90 days lancets (FreeStyle Lancets) As directed lisinopril 40 mg PO DAILY 90 days metformin ER 500 mg PO DAILY 90 days sitagliptin phosphate (Januvia) 100 mg PO DAILY 90 days sulfasalazine 500 mg PO BID 90 days Tobacco use date assessed: 06/09/24 Dental Screening Dental Screen Date: 06/09/24 HPI F/U diabetes, HTN and elevated liver enzymes. HPI Details 69 y/o male presents to f/u diabetes, HT N, liver enzymes. A1c today 6.2%. BP today 120/68, 72p. Pt reports hip pain today. He notes hip pain x2 months. [facility] Medical History Seronegative rheumatoid arthritis Surgical History No history of previous surgery Social History Housing: House Alcohol intake: current Alcohol intake frequency: holidays/special occasions only Patient Tobacco Use Status: Current everyday Tobacco user Cigarettes Per Day: 5 Years Smoked: quit 10-12 years ago e-Cigarette/Vaping Use: Never Used Second Hand Smoke Exposure: No service: No Current occupational status: disabled Cognitive needs: No Hearing needs: No Vision needs: Yes Questionnaire Thrive Questionnaire Date Thrive assessed: 06/03/24 I am a: Patient What is your living situation today?: I have a steady place to live Within the past 12 months, did the food you bought not last and you didn't have the money to get more?: I choose not to answer this question Within the past 12 months, did you worry whether your food would run out before you got money to buy more?: Sometimes True Do you have trouble paying for medicines?: No Do you have trouble getting transportation to medical appointments?: No Do you have trouble paying your heating and electricity bill?: Yes Do you have trouble taking care of your child, family member or friend?: No Do you have trouble with day-to-day activities such as bathing, preparing meals, shopping, managing finances, etc.?: I choose not to answer this question Are you currently unemployed and looking for a job?: I choose not to answer this question Are you interested in more education?: No Currently or been in a relationship where the following occur: I choose not to answer THRIVE Score: 2 BISI-7 AMB Questionnaire BISI-7 Date BISI - 7 assessed: 06/09/24 Source: Developed by Drs. Sajan Tavarez, Felicity Culver, Damion Acosta and colleagues, with an educational sharad from [employer]. Review of Systems Const Denies chills, Denies fatigue, Denies fever(s), Denies headache(s) and Denies weakness ENT Denies dizziness and Denies headache(s) Card Denies chest pain, Denies lightheadedness, Denies dyspnea and Denies other (Palpitations) Resp Denies cough, Denies dyspnea, Denies wheezing and Denies other ( shortness of breath) Musc Denies numbness and Denies tingling Neuro Denies dizziness, Denies headache(s), Denies numbness, Denies tingling, Denies paresthesias and Denies weakness Psych Denies anxiety and Denies depression Endo Denies fatigue Aller/Immun Denies wheezing Physical exam (Primary Care) Vital Signs: Last Vital Signs Temp 97.8 F 09/15/24 08:43 Pulse 72 09/15/24 08:43 Resp 14 09/15/24 08:43 BP 120/68 09/15/24 08:43 Pulse Ox 95 09/15/24 08:43 Oxygen Delivery Method Room Air 09/15/24 08:43 BMI result Body Mass Index 28.4 Tobacco/Smoking Status: Tobacco use Status Tobacco use date assessed 06/09/24 09/15/24 08:48 Patient Tobacco Use Status Current everyday Tobacco 09/15/24 08:48 e-Cigarette/Vaping Use Never Used 09/15/24 08:48 Thrive Assessment: Date of Thrive Assessment Date Thrive assessed 06/03/24 09/15/24 08:48 Currently or been in a relationship where the following occur: I choose not to answer Const General: no acute distress and well developed Nutritional Appearance: well nourished Orientation/consciousness: patient oriented x3 [facility] Head: Yes normocephalic and Yes atraumatic Eyes General: appearance normal, both eyes and all related structures Pupils: Equal, round and reactive pupils present EOM: EOMs intact bilaterally Resp Effort & Inspection: normal respiratory effort Auscultation: clear to auscultation bilaterally Cardio Rate: regular rate Rhythm: regular rhythm Heart sounds: S1 normal heart sound present, S2 normal heart sound present, no gallops, no murmurs and no rubs Neuro General: patient oriented x3 and gait normal Cranial nerves: Yes Equal, round and reactive pupils present Psych Affect: normal affect Coding Level of Care Code Est Pt Level 4 (63582) Diagnoses Diabetes E11.9 Hypertension I10 Elevated liver enzymes R74.8 Hip pain M25.559 Assessment & Plan Assessment & Plan (1) Diabetes: Code(s): E11.9 - Type 2 diabetes mellitus without complications Category: Medical Plan: A1c?6.2%.??Good?control.??Goal?is?less?than?7.0% Continue?current?medications Continue?working?on?diabetic?diet (2) Hypertension: Code(s): I10 - Essential (primary) hypertension Category: Medical Plan: Blood?pressure?is?controlled.??Goal?is?less?than?140/90 Continue?current?medications Watch?salt?in?sodium?in?diet (3) Elevated liver enzymes: Code(s): R74.8 - Abnormal levels of other serum enzymes Category: Medical Plan: Ongoing?mildly?elevated?liver?enzymes Repeat?ult rasound?of?liver?with?elastography?shows?hepatic?steatosis?without?other?masses? or?lesions. Elastography?rules?out?compensated?advanced?chronic?liver?disease Will?continue?to?monitor?liver?enzymes?and?I?encouraged?weight?loss (4) Hip pain: Code(s): M25.559 - Pain in unspecified hip Category: Medical Plan: Left?posterolateral?hip?pain?with?movement Likely?tendinitis Will?check?an?x-ray?to?rule?out?other?causes?pain He?has?been?given?exercises?and?I?advised?ice/heat?and?topical?NSAIDs Orders: Orders XR hip LT min 2V Today M25.559 - Pain in unspecified hip
[2024-09-15 08:43] VITALS: BP 120/68; PULSE 72; RESP 14; TEMP 36.6; O2SAT 95; BMI 28.4
== END 2024-09-15 09:02 | disposition home or self-care (01) ==
LOC: HO.HMCFM 08:22
PROVIDERS: PCP Family Medicine; Visit Provider Family Medicine
DX: E11.9 Type 2 diabetes mellitus without complications (principal); I10 Essential (primary) hypertension; R74.8 Abnormal levels of other serum enzymes; M25.559 Pain in unspecified hip

== ENCOUNTER → 2024-09-15 08:21 | Outpatient (BNVA) | payer OTHER, SELFPAY | PROVIDERS: PCP Family Medicine; Visit Provider Family Medicine | DX: E11.9 Type 2 diabetes mellitus without complications (principal); I10 Essential (primary) hypertension; R74.8 Abnormal levels of other serum enzymes; M25.559 Pain in unspecified hip | CPT/HCPCS: 83036; 99212 ==

== ENCOUNTER 2024-12-14 09:03 | Outpatient (REF) | payer OTHER, SELFPAY ==
--- NOTE | ~2024-12-14 | XR_ITS ---
EXAMINATION: XR HIP, LEFT CLINICAL INFORMATION: M25.559 - Pain in unspecified hip COMPARISON: None available. TECHNIQUE: AP and oblique views of the left hip. FINDINGS: No acute cortical disruption or malalignment. There is preservation of the joint space, left coxofemoral joint. Mild sclerosis in the left sacroiliac joint. Mild sclerosis at the articular surface of the symphysis pubis. No lytic or blastic lesions. No vascular calcifications. No metallic or radiopaque foreign body. No soft tissue calcifications. XR/XR hip LT min 2V IMPRESSION: No acute fracture or dislocation. Mild sacroiliitis. Electronically signed by: Rafa Kim MD 12/14/2024 10:01 AM EDT
--- OUTSIDE RECORDS SUMMARY | 2024-12-14 10:43 | XMS_ITS | Clinical Summary ---
Author Organization [employer] Address [address] [facility] 7[address] [place] [address] Care Team Providers Care Lumber Carrier Operator Name Role Phone Unavailable Primary Care Provider [...] Encounters Date Type Department Care Team Description 10/03/2024 Telephone [facility] [address] [place] [phone] Sierra Crawford BDS status PA dentures from Last 3 Months Social History Tobacco [...] series) 1976 Zoster Vaccines (1 of 2) 1976 DTaP/Tdap/Td Vaccines (1 - Tdap) 10/21/2016 10/20/2016 Hepatitis B Vaccines (1 of 3 - Risk 3-dose series) 2017 RSV Patients and Patients Aged 60 years or older (1 - Risk 60-74 years 1-dose series) 2017 Pneumococcal Vaccine: 50+ Years (3 of 3 - PPSV23, PCV20 or PCV21) 06/16/2023 06/15/2018, 10/20/2016 COVID-19 Vaccine (6 - Pfizer risk 2023- season) 2024 12/21/2023, 01/24/2022, 05/16/2021, Additional history exists Influenza Vaccine (#1) 2024 , 01/08/2023, 01/08/2023, Additional history exists Dental Oral Exam 01/01/2025 06/30/2024 Dental X-Ray: Bitewings 07/01/2025 06/30/2024 Tobacco Screening 09/07/2025 09/07/2024 Dental X-Ray: Full Mouth 07/02/2027 06/30/2024 HIB Vaccines Aged Out No longer eligi [...] Procedure Name Priority Date/Time Associated Diagnosis Comments INTRAORAL - COMPLETE SERIES OF RADIOGRAPHIC IMAGES Routine 06/30/2024 9:00 AM EDT COMPREHENSIVE ORAL EVALUATION - NEW OR ESTABLISHED PATIENT Routine 06/30/2024 9:00 AM EDT from Last 3 Months or Most Recently Relevant to Health Maintenance Insurance DENTAL - [facility]
--- OUTSIDE RECORDS SUMMARY | 2024-12-14 10:43 | XMS_ITS | Encounter Summary ---
Author Organization [employer] Address [address] [place] [address] [address] [place] [address] Care Team Providers Care Event Set Up Specialist Name Role Phone Unavailable Primary Care Provider Unavailabl e Reason for Visit * Reason Onset Date Comments status PA dentures 10/03/2024 Encounter Details Date Type Department Care Team (Late st Contact Info) Description 10/03/2024 Telephone [facility] [address] [place], [place] [phone] Sierra Crawford BDS [address] [place], [place] [phone] status PA dentures Social History Tobacco Use Types Packs/Day Years Used Date Smoking Tobacco: Every Day Cigarettes Smokeless Tobacco: Never Alcohol Use Standard Drinks/Week Comments Yes 0 (1 standard drink = 0.6 oz pur e alcohol) Sex and Gender Information Value Date Recorded Sex Assigned at Male 01/04/2024 10:31 AM EDT Legal Sex Male 10:02 AM EDT Gender Identity Male 01/04/2024 10:31 AM EDT Sexual Orientation Don't know 01/04/2024 10 :31 AM EDT documented as of this encounter Miscellaneous Notes * Telephone Encounter - Belle Haddad - 10/03/2024 4:18 PM EDT Patient is from [facility] and is checking in on status of dentures and PA. Please reach out to patient orclarification of treatment documented in this encounter Plan of Treatment Not on file documented as of this encounter Visit Diagnoses Not on filedocumented in this encounter
--- OUTSIDE RECORDS SUMMARY | 2024-12-14 10:43 | XMS_ITS ---
Author Name Esmer Fernandez NP Address [address] [place] [address] Phone [phone] [facility] Care Team Providers Care Customer Service Coordinator Name Role Phone Esmer Fernandez Unavailable [phone] Reason for Referral Not Available Allergies, adverse [...] List Problem Status Onset Date Resolved Date Synopsis HLD (hyperlipidemia) Active 2024-06-07 N/A stat in Type 2 diabetes mellitus wit h diabetic neuropathy, without long-term current use of insulin Active 2024-06-07 N/A glipizide, januv ia, metforminon statinon aceA1C- does not remember Average BG- yesterday 122, 90s's usually- at times to 140 [employer]- 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 BP as needed Last seen PCP about 6 months ago, tomorrow has an appt Rheumatoid arthritisImmunodeficiency Active 2024-06-07 N/A has a camera storage clerk every 3-6 months on sulfasalazine takes tylenol [...] for and report early any s/s of infection Other problems related to medical facilities and other health care Active 2024-06-08 N/A IMMUNOSUPPRES SED CONTINGENCY PLANLast updated: 06/08/2024Member to call for [...] needed for fever/ Encourage adequate water intake Smoker Active 2024-06-08 N/A 4-5 ciggs a da y (20 ciggs used to last him 3-4 days) states tries to quit states medications such as nicotine patch dont help much BPH (benign prostatic hyperplasia) Active 2024-06-07 N/A tamsulosinsome m ild issues of stream if his BG is high per pt HTN (hypertension) Active 2024-06-07 N/A amlodi pine, lisinopril BP 139/80Report persistent readings of 140/90 or above Encounters Encounters Type Facility Date of Service Diagnosis/Co mplaint New patient, 30-44min 1 stable chronic or 2 minor; add modifier 95 for video, modifier 93 for phone [facility], ([place]) 06/08/2024 Type 2 diabetes mellitus wit h diabetic neuropathy, unspecifiedRheumatoid arthritis, unspecifiedImmunodeficiency, unspecifiedEssential (primary) hypertensionType 2 diabetes mellitus with other specified complicationHyperlipidemia, unspecifiedEnlarged prostate without lower urinary tract symptomsNicotine dependence, unspecified, uncomplicatedOther problems related to medical facilities and other health care New patient, 30-44min 1 stable chronic or 2 minor; add modifier 95 for video, modifier 93 for phone [facility], ([place]) 06/08/2024 New patient, 30-44min 1 stable chronic or 2 minor; add modifier 95 for video, modifier 93 for [employer] [facility], ([place]) 06/08/2024 New patient, 30-44min 1 stable chronic or 2 minor; add modifier 95 for video, modifier 93 for phone [facility] ([place] 06/08/2024 New patient, 30-44min 1 stable chronic or 2 minor; add modifier 95 for video, modifier 93 for phone [facility] [place] 06/08/2024 New patient, 30-44min 1 stable chronic or 2 minor; add modifier 95 for video, modifier 93 for phone [facility] [place] 06/08/2024 New patient, 30-44min 1 stable chronic or 2 minor; add modifier 95 for video, modifier 93 for phone [facility] [place] 06/08/2024 Vital Signs Date of Collection Vitals 2024-06-08 06:45:38 Height - 160.02 cmWe ight - 69.85 kgBody Mass Index (BMI) - 27.28 kg/m2BP Diastolic - 80.0 mm[Hg]BP Systolic - 139.0 mm[Hg]Pain Scale - 7.0 {score} Social History Social History Social History Observation Description Effec tive Time Current Smoking Status Current every day smoker 2024-12-14 Sex Male History of Procedures Procedures Service Procedure code Service date Servicing provider Phone# New patient, 30-44min 1 stable chronic or 2 minor; add modifier 95 for video, modifier 93 for phone [phone] No Data Available No Data Available [...] for phoneAdvance care planning discussed and documented advance care plan or surrogate decision-maker was documented in the medical record. (1123F)Pain Assessment - Pain Documented on a Pain Scale (1125F)DBP 80-89 (3079F)Continue to see PCP. 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 [facility] Today, patient has chief complaint of: establishing care.Reviewed Allergies, Medications, Active Medical conditions, past medical/surgical history, Social history. 2024-06-08 Most recent hospital stay(s) or ER visit(s) and precipitating factors: No 2024-06-08 Has AD. Daughter Clinton Temple. Full code. 2024-06-08 Open HEDIS Measure r christiane: Yes
== END 2024-12-14 09:04 | disposition home or self-care (01) ==
LOC: HO.XRAY 09:03
PROVIDERS: PCP Family Medicine; Visit Provider Family Medicine
DX: M25.552 Pain in left hip (principal)
CPT/HCPCS: 73502

== ENCOUNTER → 2024-12-14 09:08 | Outpatient (BNV) | payer OTHER, SELFPAY | PROVIDERS: PCP Family Medicine; Visit Provider Radiology Diagnostic Radiology | DX: M25.552 Pain in left hip (principal) | CPT/HCPCS: 73502 ==

== ENCOUNTER 2024-12-19 10:27 | Outpatient (AMB) | payer OTHER, MEDICAID, SELFPAY ==
--- NOTE | 2024-12-19 10:35 | A.OFFPC_ITS ---
Vital Signs 12/19/24 10:39 Height 5 ft 3 in Weight 155 lb BMI 27.5 BP 120/64 Blood Pressure Location Rt brachial Position Sitting Pulse 75 Pulse Source Pulse Oximeter Pulse Oximetry (%) 97 Oxygen Delivery Method Room Air Intake Visit Reasons: f/u diabetes, HTN Allergies ibuprofen Allergy (Severe, Verified 12/19/24 10:41) stomach ulcer Medication List - Last Reconciled 12/19/24 by Cesar Castellanos MD alcohol swabs (Alcohol Prep Pads) pad topical amlodipine 5 mg PO DAILY 90 days atorvastatin 10 mg PO DAILY 90 days blood sugar diagnostic (FreeStyle Lite Strips) As directed celecoxib 200 mg PO BID PRN 30 days gabapentin 300 mg PO BEDTIME 30 days glipizide ER 2.5 mg PO BID 90 days lancets (FreeStyle Lancets) As directed lisinopril 40 mg PO DAILY 90 days metformin ER 500 mg PO DAILY 90 days sitagliptin phosphate (Januvia) 100 mg PO DAILY 90 days sulfasalazine 500 mg PO BID 90 days Tobacco use date assessed: 12/19/24 Fall risk assessment: No Falls in past year Last assessed Fall Risk: 12/19/24 Dental Screening Dental Screen Date: 12/19/24 Did you have a dental visit in the last 12 months?: Yes Did you have a dental problem in the last 6 months where you did not have access to dental care?: No Was dental information given to patient?: Patient has dentist HPI f/u diabetes, HTN HPI Details 69 y/o male presents to f/u diabetes, HT N. BP today 120/64, 75p. He is on lisinopril 40mg daily, amlodipine 5mg daily. Diabetic eye exam 10/25/24 showed no diabetic retinopathy. Last A1c 6.2%. A1c today also 6.2%. He is on glipizide 2.5mg, metformin 500mg, Januvia 100mg daily. Pt had some L hip pain. Hip xray 12/14/24 showed: No acute fracture or dislocation. Mild sacroiliitis. He notes he does not tolerate ibuprofen. Hip pain has been intermittent. HPI Comments History of Present Illness Details Documentation assistance for Cesar Castellanos MD, was provided by Geraldo Paredes,? Herbarium Curator on at 11:04 AM MARLON. I, Dr. Castellanos, have read, observed, and verified documentation. PENDING SALE TO [facility] Medical History Seronegative rheumatoid arthritis Surgical History No history of previous surgery Social History Housing: House Alcohol intake: current Alcohol intake frequency: holidays/special occasions only Patient Tobacco Use Status: Current everyday Tobacco user Cigarettes Per Day: 5 Years Smoked: quit 10-12 years ago e-Cigarette/Vaping Use: Never Used Second Hand Smoke Exposure: No service: No Current occupational status: disabled Cognitive needs: No Hearing needs: No Vision needs: Yes Questionnaire PHQ-9 Over the last 2 weeks, how often have you been bothered by any of the following problems? 1. Little interest or pleasure in doing things: several days 2. Feeling down, depressed, or hopeless: not at all 3. Trouble falling or staying asleep, or sleeping too much: several days 4. Feeling tired or having little energy: several days 5. Poor appetite or overeating: several days 6. Feeling bad about yourself - or that you are a failure or have let yourself or your family down: several days 7. Trouble concentrating on things, such as reading the newspaper or watching television: not at all 8. Moving or speaking so slowly that other people could have noticed. Or the opposite - being so fidgety or restless that you have been moving around a lot more than usual: not at all 9. Thoughts that you would be better off or of hurting yourself in some way: not at all Total score: 5 Depression Screening Interpretation: Negative Depression Screening Done: Yes Source: Developed by Drs. Sajan Tavarez, Felicity Culver, Damion Acosta and colleagues, with an educational sharad from [employer]. Thrive Questionnaire Date Thrive assessed: 06/03/24 I am a: Patient What is your living situation today?: I have a steady place to live Within the past 12 months, did the food you bought not last and you didn't have the money to get more?: I choose not to answer this question Within the past 12 months, did you worry whether your food would run out before you got money to buy more?: Sometimes True Do you have trouble paying for medicines?: No Do you have trouble getting transportation to medical appointments?: No Do you have trouble paying your heating and electricity bill?: Yes Do you have trouble taking care of your child, family member or friend?: No Do you have trouble with day-to-day activities such as bathing, preparing meals, shopping, managing finances, etc.?: I choose not to answer this question Are you currently unemployed and looking for a job?: I choose not to answer this question Are you interested in more education?: No Currently or been in a relationship where the following occur: I choose not to answer THRIVE Score: 2 AUDIT C Alcohol Use Questionnaire (AUDIT-C) 1. How often do you have a drink containing alcohol?: 2-3 times a week 2. How many drinks containing alcohol do you have on a typical day when you are drinking?: 1 or 2 3. How often do you have six or more drinks on one occasion?: Never Total Score: 3 BISI-7 AMB Questionnaire BISI-7 Date BISI - 7 assessed: 06/09/24 Feeling nervous, anxious, or on edge: 0 = Not at all Not being able to stop or control worryin = Several days Worrying too much about different things: 1 = Several days Trouble relaxin = Several days Being so restless that it is hard to sit still: 0 = Not at all Becoming easily annoyed or irritable: 2 = More than half the days Feeling afraid as if something awful might happen: 0 = Not at all Total BISI-7 score (0-4 normal; 5-9 mild; 10-14 moderate; 15-21 severe): 5 Source: Developed by Drs. Sajan Tavarez, Felicity Culver, Damion Acosta and colleagues, with an educational sharad from [employer]. Review of Systems Const Denies chills, Denies fatigue, Denies fever(s), Denies headache(s) and Denies weakness ENT Denies dizziness and Denies headache(s) Card Denies dyspnea Resp Denies cough, Denies dyspnea, Denies wheezing and Denies other (shortness of breath) Musc Denies numbness and Denies tingling Neuro Denies dizziness, Denies headache(s), Denies numbness, Denies tingling and Denies weakness Psych Denies anxiety and Denies depression Endo Denies fatigue Aller/Immun Denies wheezing Physical exam (Primary Care) Vital Signs: Last Vital Signs Pulse 75 12/19/24 10:39 BP 120/64 12/19/24 10:39 Pulse Ox 97 12/19/24 10:39 Oxygen Delivery Method Room Air 12/19/24 10:39 BMI result Body Mass Index 27.5 Tobacco/Smoking Status: Tobacco use Status Tobacco use date assessed 12/19/24 12/19/24 10:45 Patient Tobacco Use Status Current everyday Tobacco 12/19/24 10:36 e-Cigarette/Vaping Use Never Used 12/19/24 10:36 PHQ-9: PHQ-9 Score PHQ-9: Total score 5 12/19/24 10:45 Depression Screening Interpretation: Negative Thrive Assessment: Date of Thrive Assessment Date Thrive assessed 06/03/24 12/19/24 10:36 Currently or been in a relationship where the following occur: I choose not to answer Const General: well developed; No acute distress Nutritional Appearance: well nourished Orientation/consciousness: patient oriented x3 HENMT Head: Yes normocephalic and Yes atraumatic Eyes General: appearance normal, both eyes and all related structures Pupils: Equal, round and reactive pupils present EOM: EOMs intact bilaterally Resp Effort & Inspection: normal respiratory effort Neuro General: patient oriented x3 and gait normal Cranial nerves: Yes Equal, round and reactive pupils present Psych Affect: normal affect Results AMB Hemoglobin A1c AMB Hemoglobin A1c 6.2 % Last Edit by Jerica Fletcher CMA on 12/19/24 10:52 Results Reviewed Results Reviewed: Laboratory Last Values Hgb A1c (Clinic) 6.2 % (4.0-6.0) H 12/19/24 10:46 Coding Level of Care Code Est Pt Level 4 (13363) Diagnoses Diabetes E11.9 Hypertension I10 Hip pain M25.559 Assessment & Plan Assessment & Plan (1) Diabetes: Code(s): E11.9 - Type 2 diabetes mellitus without complications Category: Medical Plan: A1c remains 6.2%. Good control and steady. Goal is less than 7.0% Continue current medication (2) Hypertension: Code(s): I10 - Essential (primary) hypertension Category: Medical Plan: Blood pressure is well controlled. Goal is less than 140/90 Continue current medication (3) Hip pain: Code(s): M25.559 - Pain in unspecified hip Category: Medical Plan: Left low back and posterior hip pain X-ray shows sacroiliitis and this corresponds well to the region of discomfort that he has. He notes that he did get ulcers greater than 10 years ago from ibuprofen Will try celecoxib; he will take 4 only up to 3 days in a row when he gets a flare-up. If still having problems, he will let me know and I will make a referral to consider injection therapy. Orders: Orders 2 AMB Hemoglobin A1c Today Z13.9 - Encounter for screening, unspecified Medications: New celecoxib 200 mg PO BID PRN 60 caps 1RF pain 30 days Changed From glipizide ER 2.5 mg PO DAILY 90 days 90 tabs 3RF To glipizide ER 2.5 mg PO BID 180 tabs 3RF 90 days
[2024-12-19 10:39] VITALS: BP 120/64; PULSE 75; O2SAT 97; BMI 27.5
--- OUTSIDE RECORDS SUMMARY | 2024-12-19 13:23 | XMS_ITS | Clinical Summary ---
Author Organization [employer] Address [address] [facility] 7[address] [place] [address] Care Team Providers Care Biscuitware Brusher Name Role Phone Unavailable Primary Care Provider [...] Type Department Care Team Description 10/03/2024 Telephone [facility] [address] [place] [phone] Sierra Crawford BDS status PA dentures [...] Relevant to Health Maintenance Insurance DENTAL - [facility]
--- OUTSIDE RECORDS SUMMARY | 2024-12-19 13:23 | XMS_ITS ---
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 as needed Last seen PCP about 6 months ago, tomorrow has an appt Rheumatoid arthritisImmunodeficiency Active 2024-06-07 N/A has a stoper every 3-6 months on sulfasalazine takes tylenol [...] 95 for video, modifier 93 for phone [facility], ([place]) 06/08/2024 Type 2 diabetes mellitus wit h diabetic neuropathy, unspecifiedRheumatoid arthritis, unspecifiedImmunodeficiency, unspecifiedEssential (primary) hypertensionType 2 diabetes mellitus with other specified complicationHyperlipidemia, unspecifiedEnlarged prostate without lower urinary tract symptomsNicotine dependence, unspecified, uncomplicatedOther problems related to medical facilities and other health care New patient, 30-44min 1 stable chronic or 2 minor; add modifier 95 for video, modifier 93 for phone [facility], ([place]) 06/08/2024 New patient, 30-44min 1 stable chronic or 2 minor; add modifier 95 for video, modifier 93 for [employer] [facility] ([place]) 06/08/2024 New patient, 30-44min 1 stable chronic or 2 minor; add modifier 95 for video, modifier 93 for phone [facility] ([place] 06/[place]/2024 New patient, 30-44min 1 stable chronic or 2 minor; add modifier 95 for video, modifier 93 for phone [facility] [place] 06/08/2024 New patient, 30-44min 1 stable chronic or 2 minor; add modifier 95 for video, modifier 93 for phone [facility] [place] 06/08/2024 New patient, 30-44min 1 stable chronic or 2 minor; add modifier 95 for video, modifier 93 for phone [facility] [place] 06/08/2024 Vital Signs Date of Collection Vitals 2024-06-08 06:45:38 Height - 160.02 cmWe ight - 69.85 kgBody Mass Index (BMI) - 27.28 kg/m2BP Diastolic - 80.0 mm[Hg]BP Systolic - 139.0 mm[Hg]Pain Scale - 7.0 {score} Social History Social History Social History Observation Description Effec tive Time Current Smoking Status Current every day smoker 2024-12-19 Sex Male History of Procedures Procedures Service Procedure code Service date Servicing provider Phone# New patient, 30-44min 1 stable chronic or 2 minor; add modifier 95 for video, modifier 93 for phone [phone] No Data Available No Data Available [...] 80-89 (3079F)Continue to see PCP. 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 [facility] Today, patient has chief complaint of: establishing care.Reviewed Allergies, Medications, Active Medical conditions, past medical/surgical history, Social history. 2024-06-08 Most recent hospital stay(s) or ER visit(s) and precipitating factors: No 2024-06-08 Has AD. Daughter Clinton Temple. Full code. 2024-06-08 Open HEDIS Measure r christiane: Yes
--- OUTSIDE RECORDS SUMMARY | 2024-12-19 13:23 | XMS_ITS | Encounter Summary ---
Author Organization [employer] Address [address] [place] [address] [address] [place] [address] Care Team Providers Care Lead Clinical Research Coordinator Name Role Phone Unavailable Primary Care Provider Unavailabl e Reason for Visit * Reason Onset Date Comments status PA dentures 10/03/2024 Encounter Details Date Type Department Care Team (Late st Contact Info) Description 10/03/2024 Telephone [facility] [address] [place], [place] [phone] Sierra Crawford BDS [address] [place], [place] [phone] status PA dentures Social History Tobacco Use [...] 10/03/2024 4:18 PM EDT Patient is from [facility] and is checking in on status of dentures and PA. Please reach out to patient orclarification of treatment documented in this encounter Plan of Treatment Not on file documented as of this encounter Visit Diagnoses Not on filedocumented in this encounter
== END 2024-12-19 11:08 | disposition home or self-care (01) ==
LOC: HO.HMCFM 10:28
PROVIDERS: PCP Family Medicine; Visit Provider Family Medicine
DX: E11.9 Type 2 diabetes mellitus without complications (principal); I10 Essential (primary) hypertension; M25.559 Pain in unspecified hip; Z13.9 Encounter for screening, unspecified

== ENCOUNTER → 2024-12-19 10:27 | Outpatient (BNVA) | payer OTHER, SELFPAY | PROVIDERS: PCP Family Medicine; Visit Provider Family Medicine | DX: I10 Essential (primary) hypertension (principal); E11.9 Type 2 diabetes mellitus without complications; M25.552 Pain in left hip | CPT/HCPCS: 83036; 96127; 99212 ==

== ENCOUNTER 2025-02-24 10:19 | Outpatient (REF) | payer OTHER, SELFPAY ==
--- OUTSIDE RECORDS SUMMARY | 2025-02-24 10:58 | XMS_ITS ---
Author Name Esmer Fernandez NP Address [address] [place] [address] Phone [phone] 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 on sulfasalazine takes tylenol [...] 95 for video, modifier 93 for phone [facility] [place]2024 Type 2 diabetes mellitus wit h diabetic neuropathy, unspecifiedRheumatoid arthritis, unspecifiedImmunodeficiency, unspecifiedEssential (primary) hypertensionType 2 diabetes mellitus with other specified complicationHyperlipidemia, unspecifiedEnlarged prostate without lower urinary tract symptomsNicotine dependence, unspecified, uncomplicatedOther problems related to medical facilities and other health care New patient, 30-44min 1 stable chronic or 2 minor; add modifier 95 for video, modifier 93 for phone [facility] [place] 06/[place]2024 New patient, 30-44min 1 stable chronic or 2 minor; add modifier 95 for video, modifier 93 for [employer] [facility] [place] 06/08/2024 New patient, 30-44min 1 stable chronic or 2 minor; add modifier 95 for video, modifier 93 for phone [facility] ([place] 06/08/2024 New patient, 30-44min 1 stable chronic or 2 minor; add modifier 95 for video, modifier 93 for phone [facility] 06[place]2024 New patient, 30-44min 1 stable chronic or 2 minor; add modifier 95 for video, modifier 93 for phone [facility] 06[place]2024 New patient, 30-44min 1 stable chronic or 2 minor; add modifier 95 for video, modifier 93 for phone [facility] [place] 06/08/2024 Vital Signs Date of Collection Vitals 2024-06-08 06:45:38 Height - 160.02 cmWe ight - 69.85 kgBody Mass Index (BMI) - 27.28 kg/m2BP Diastolic - 80.0 mm[Hg]BP Systolic - 139.0 mm[Hg]Pain Scale - 7.0 {score} Social History Social History Social History Observation Description Effec tive Time Current Smoking Status Current every day smoker 2025-02-24 Sex Male History of Procedures Procedures Service Procedure code Service date Servicing provider Phone# New patient, 30-44min 1 stable chronic or 2 minor; add modifier 95 for video, modifier 93 for phone [phone] No Data Available No Data Available [...] 80-89 ([id number])Continue to see PCP. 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 [facility] Today, patient has chief complaint of: establishing care.Reviewed Allergies, Medications, Active Medical conditions, past medical/surgical history, Social history. 2024-06-08 Most recent hospital stay(s) or ER visit(s) and precipitating factors: No 2024-06-08 Has AD. Daughter Clinton Temple. Full code. 2024-06-08 Open HEDIS Measure r christiane: Yes
--- OUTSIDE RECORDS SUMMARY | 2025-02-24 10:59 | XMS_ITS | Clinical Summary ---
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
--- OUTSIDE RECORDS SUMMARY | 2025-02-24 10:59 | XMS_ITS | Encounter Summary ---
Author Organization [employer] Address [address] [place] [address] [address] [place] [address] Care Team Providers Care B2B Sales Professional Name Role Phone Unavailable Primary Care Provider Unavailabl e Reason for Visit * Reason Onset Date Comments status PA dentures 10/03/2024 Encounter Details Date Type Department Care Team (Late st Contact Info) Description 10/03/[address] [facility] [address] [place], [place] [phone] Sierra Crawford BDS [address] [place], [place] [phone] status PA dentures Social History Tobacco Use [...] 10/03/2024 4:18 PM EDT Patient is from [facility] and is checking in on status of dentures and PA. Please reach out to patient orclarification of treatment documented in this encounter Plan of Treatment Not on file documented as of this encounter Visit Diagnoses Not on filedocumented in this encounter
[2025-02-24 13:19] LABS: MANUAL DIFF FLAG NO
[2025-02-24 13:26] LABS: Hematocrit 48.6 % (42.0-52.0); Hemoglobin 17.2 g/dl (14.0-18.0); Imm Gran Abs Auto 0.02 X10*3/uL (0.00-0.03); Imm Gran Pct Auto 0.3 % (0.0-0.4); Lymphocytes Absolute Auto 1.7 X10*3/uL (1.2-4.9); Mean Corpuscular HGB Conc 35.4 g/dl (31.0-36.0); Mean Corpuscular Hemoglobin 33.1 pg (27.0-33.0); Mean Corpuscular Volume 93.6 fL (80.0-98.0); NRBC Abs Auto 0.000 X10*3/uL (0.0-0.012); NRBC Pct Auto 0.0 /100WBC (0.0-0.2); Platelet Count 195 X10*3/uL (160-400); Red Blood Count 5.19 X10*6/uL (4.60-5.80); White Blood Count 7.2 X10*3/uL (4.8-10.8)
[2025-02-24 13:59] LABS: Alanine Aminotransferase 76 U/L (0-40); Albumin Level 4.8 g/dL (3.5-5.0); Alkaline Phosphatase 50 U/L (39-117); Anion Gap 13 (12-20); Aspartate Amino Transferase 52 U/L (5-37); Blood Urea Nitrogen 15 mg/dL (9-16); Calcium 9.6 mg/dL (8.4-10.2); Carbon Dioxide 26 mmol/L (22-29); Chloride 106 mmol/L (96-108); Estimated Glomerular Filt Rate > 60; Potassium 4.1 mmol/L (3.3-5.1); Sodium 141 mmol/L (135-145); Total Protein 8.0 g/dL (6.5-8.0)
== END 2025-02-24 10:20 | disposition home or self-care (01) ==
LOC: HO.HKASLDS 10:19
PROVIDERS: PCP Family Medicine; Visit Provider Student in an Organized Health Care Education/Training Program
DX: M06.00 Rheumatoid arthritis without rheumatoid factor, unspecified site (principal)
CPT/HCPCS: 36415; 80053; 85025; 85652; 86140

== ENCOUNTER 2025-03-01 13:57 | Outpatient (AMB) | payer OTHER, MEDICAID, SELFPAY ==
--- NOTE | 2025-03-01 13:59 | A.OFFVIS_ITS ---
Vital Signs 03/01/25 14:08 Height 5 ft 3 in Weight 155 lb 3.287 oz BMI 27.5 BP 122/80 Blood Pressure Location Lt brachial Position Sitting Pulse 80 Pulse Source Pulse Oximeter Pulse Oximetry (%) 95 Oxygen Delivery Method Room Air Intake Visit Reasons: f/u RA Intake Note: Patient presents for RA follow up. Allergies ibuprofen Allergy (Severe, Verified 03/01/25 14:04) stomach ulcer HPI Comments Details: Patient is a 69-year-old male with hypertension, hyperlipidemia, diabetes, nonalcoholic fatty liver disease and seronegative rheumatoid arthritis here today for follow up Interval History: Patient last seen 09/01/2024 with me. - On sulfasalazine 500mg bid - Patient states that his right wrist has improved on its own without additional medication - No other joint pain complaints - Having left outer buttock pain - Exercises given for trochanteric bursitis Today - On sulfasalazine 500mg bid - Doing well on SSZ - No current complaints Rheumatologic History: Seronegative rheumatoid arthritis, MRI in 2018 showed synovitis bilaterally. Methotrexate 01/2017-June 2020 self discontinued after COVID Sulfasalazine 11/2018- present prev on 1.5 g daily now 1 g daily . effective Current Rheumatology Medication(s): Sulfasalazine 500mg bid PFSH Medical History Seronegative rheumatoid arthritis Surgical History No history of previous surgery Social History Housing: House Alcohol intake: current Alcohol intake frequency: holidays/special occasions only Patient Tobacco Use Status: Current everyday Tobacco user Cigarettes Per Day: 5 Years Smoked: quit 10-12 years ago e-Cigarette/Vaping Use: Never Used Second Hand Smoke Exposure: No service: No Current occupational status: disabled Cognitive needs: No Hearing needs: No Vision needs: Yes Review of Systems Narrative Review of Systems Constitutional: Denies fever, chills, weight loss ENT: Denies vision changes, eye pain or eye redness, dental caries, dry mouth GI: Denies nausea, vomiting, diarrhea, abdominal pain, change in BM Pulm: Denies SOB, VALERIO, hemoptysis, wheezing Cards: Denies chest pain, palpitations Skin: Denies Raynaud's, rash, nail changes, photosensitivity, 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 Well appearing and in no apparent painful distress MSK Hands * Right Hand: Able to make a fist. No swelling or tenderness to palpation of the MCPs, PIPs or DIPs. * Left Hand: Able to make a fist. No swelling or tenderness to palpation of the MCPs, PIPs or DIPs. * Herbedens nodes noted bilaterally Wrists * Right Wrist: Full ROM to flexion and extension. No swelling or TTP * Left Wrist: Full ROM to flexion and extension. No swelling or TTP Elbows * Right Elbow: Full ROM. No swelling or TTP. No TTP of the medial epicondyle. No TTP of the lateral epicondyle * Left Elbow: Full ROM. No swelling or TTP. No TTP of the medial epicondyle. No TTP of the lateral epicondyle Shoulders * Right shoulder: Full ROM. No swelling noted. No TTP of the AC joint. No TTP of the subacromial bursa. No TTP of the posterior shoulder * Left shoulder: Full ROM. No swelling noted. No TTP of the AC joint. No TTP of the subacromial bursa. No TTP of the posterior shoulder Hip bursa: No tenderness to palpation bilaterally Knees * Right knee: Full ROM. No swelling noted. No TTP of the knee joint line. No TTP of pes anserine bursa * Left knee: Full ROM. No swelling noted. No TTP of the knee joint line. No TTP of pes anserine bursa. * Crepitations felt bilaterally Ankles * Right ankle: Good ankle dorsiflexion and plantar flexion. No swelling. No TTP of the ankle joint * Left ankle: Good ankle dorsiflexion and plantar flexion. No swelling. No TTP of the ankle joint Feet * Right foot: Negative squeeze test * Left foot: Negative squeeze test Tender points? * No tenderness to palpation of the bilateral trapezius, supraspinatus, anterior costochondral junctions, bilateral suboccipital muscle insertions SKIN No rashes Vital Signs: Last Vital Signs Pulse 80 03/01/25 14:08 BP 122/80 03/01/25 14:08 Pulse Ox 95 03/01/25 14:08 Oxygen Delivery Method Room Air 03/01/25 14:08 BMI result Body Mass Index 27.5 Results Reviewed Results Reviewed: Laboratory Tests 09/01/24 02/24/25 10:21 10:26 WBC 7.2 RBC 5.19 Hgb 17.2 Hct 48.6 Plt Count 195 ESR 5 Sodium 141 Potassium 4.1 Chloride 106 Carbon Dioxide 26 BUN 15 Creatinine 0.93 AST 52 H ALT 76 H C-Reactive Protein 0.22 1.29 H Abd US w/ liver elastography 07/2024 FINDINGS: Liver: The right lobe of the liver measures 15.4 cm in size. The left lobe of the liver measures 8.5 cm in size. The liver demonstrates increased echotexture, consistent with steatosis. There is a 1.1 x 0.7 x 1.3 cm cyst in the left lobe. No intrahepatic biliary ductal dilatation is identified. There is normal hepatopedal flow in the portal vein. Ultrasound elastography of the liver was performed with 10 separate measurements of the liver parenchyma with the patient in the supine position. Measurements were obtained approximately 2 cm below Clay's capsule and perpendicular to the capsule. Images are of satisfactory quality. The median shear wave velocity is 1.55 m/s (previously 1.69 m/s). The interquartile range/median (IQR/median) is 0.15. Gallbladder and biliary tree: The gallbladder is unremarkable, without evidence of calculi, wall thickening, or pericholecystic fluid. There is no sonographic Diaz sign. The common bile duct is normal in caliber measuring 4 mm. Right Kidney: The right kidney measures 9.3 cm in length. The right kidney is unremarkable, without evidence of masses, hydronephrosis, or calculi. Pancreas: The pancreatic head, neck, and body are unremarkable. The pancreatic tail is obscured by bowel gas. Abdominal aorta and inferior vena cava: The visualized portions of the abdominal aorta and inferior vena cava are normal in caliber. There is no free fluid in the right upper quadrant. IMPRESSION: Hepatic steatosis. The median shear wave velocity in the liver is 1.55 m/s, corresponding to a median liver stiffness of 7.22 kPa. The IQR/median value is 0.15. This is indicative of a poor quality data set, and the estimated liver stiffness may be unreliable. Findings are indicative of a low elastography value which rules out advanced chronic liver disease in asymptomatic patients. Assessment & Plan Assessment & Plan (1) Seronegative rheumatoid arthritis: Comment: Seronegative rheumatoid arthritis, MRI in 2019 showed synovitis bilaterally. Methotrexate 01/2017-June 2020 self discontinued after COVID Sulfasalazine 11/2018- present prev on 1.5 g daily now 1 g daily . effective Code(s): M06.00 - Rheumatoid arthritis without rheumatoid factor, unspecified site Category: Medical Plan: #Seronegative RA Patient is a 69-year-old male with seronegative rheumatoid arthritis here today for follow up. Currently in remission/low disease activity on sulfasalazine monotherapy Given the elevated AST/ALT will reduce the SSZ to 500mg once a day Advised to limit fried food and alcohol for the holiday season Plan - Sulfasalzine 500mg daily - RTC 3 months - Labs before visit: CBC, CMP, ESR, CRP (2) LANE (nonalcoholic steatohepatitis): Comment: BASELINE Laboratory Tests 08/23/21 PT 12.2 INR 1.1 Estimated GFR > 60 Hemoglobin A1c % 7.9 Ferritin 214 Total Bilirubin 0.6 GGT 48 AST 27 ALT 49 H Alkaline Phosphatase 55 C-Reactive Protein 0.52 H Alpha Fetoprotein 2.9 CHANCE Screen NEGATIVE Anti-Mitochondrial Ab NEGATIVE Anti-Smooth Muscle Ab <20 Plt Count 192 Hepatitis A IgM Ab Nonreactive Hep Bs Antigen Negative Hep Bs Antibody REACTIVE Hep B Core Total Ab Reactive Hepatitis C Ab (EIA) Nonreactive HIV 1&2 Ab/P24 Ag 4thGn Nonreactive Ultrasound with elastography equals F1 HBsAG Negative Negative ULTRASOUND OF THE ABDOMEN 09/06/21 (F1) CURRENT LABS 07/18/22 Plt Count 208 Direct Bilirubin 0.2 Alpha Fetoprotein 3.2 Total Bilirubin 0.7 AST 33 ALT 55 H Alkaline Phosphatase 58 ULTRASOUND OF THE ABDOMEN 04/18/22? FINDINGS: PANCREAS: Normal. LIVER: Prominent enlarged measuring up to 18.7 cm The liver contour is normal. Left lobe cyst measures 12 mm There is no intrahepatic biliary duct dilatation seen. Diffuse increased echogenicity consistent with fatty infiltration GALLBLADDER: Normal. The gallbladder is physiologically distended without evidence of stones, sludge, polyps, wall thickening or pericholecystic fluid. COMMON BILE DUCT: Normal in caliber measuring 0.7 cm in diameter. RIGHT KIDNEY: Normal. No hydronephrosis. No renal calculi or focal parenchymal lesions. The kidney measures 9.4 cm in maximum dimension. FREE FLUID: None. US/US abdomen limited IMPRESSION: Hepatomegaly changes of diffuse hepatic steatosis. No gallstones FINDINGS: PANCREAS: Normal. The visualized pancreatic head and body are normal in appearance. The remainder of the pancreas is obscured from visualization by the overlying bowel gas.? ABDOMINAL AORTA: The proximal, middle, and distal aortic segments are normal in caliber.? INFERIOR VENA CAVA: Visualized portions are normal.? LIVER: The liver demonstrates normal size, contour and increased echogenicity with areas of focal fatty sparing in the gallbladder. No focal lesion or intrahepatic biliary duct dilatation. The right lobe measures 18.6 cm in length. The left lobe measures 10.5 cm in length.? Portal flow is hepatopedal. Shear wave liver elastography median stiffness is 1.69 m/s (reference: normal median stiffness is 1.3 m/s or less). IQR/median stiffness to assess sampling precision is 0.04 (reference: good quality data set is IQR/median stiffness of 0.15 or less). GALLBLADDER: There are focal small echogenic areas along the gallbladder wall suggestive of adenomyomatosis. The gallbladder is physiologically distended without evidence of stones, sludge, polyps, wall thickening or pericholecystic fluid.? COMMON BILE DUCT: Normal in caliber measuring 0.4 cm in diameter. RIGHT KIDNEY: Normal. No hydronephrosis. No renal calculi or focal parenchymal lesions. The kidney measures 9.8 cm in maximum dimension. LEFT KIDNEY: There is an anechoic cyst in midpole measuring 2.2 x 1.3 x 1.5 cm and the largest lower pole cyst measures 3.4 x 3.8 x 3.4 cm. No hydronephrosis. No renal calculi or focal parenchymal lesions. The kidney measures 10.6 cm in maximum dimension. SPLEEN: Normal. The spleen measures 11.1 cm in maximum dimension. FREE FLUID: None.? US/US abdomen comp w elastography IMPRESSION: 1. Hepatic steatosis with areas of focal fatty sparing of the gallbladder. ? Focal adenomyomatosis along the inner gallbladder wall. ? 2. Liver elastography: Median liver stiffness measures 1.69 m/s corresponding to cACLD ? ? ? (ruled out). Code(s): K75.81 - Nonalcoholic steatohepatitis (LANE) Category: Medical Plan: #LANE Patient with mild transaminitis secondary to non alcoholic fatty liver disease. Liver elastography showed no evidence of cirrhosis Discussed limiting fatty food intake, alcohol and [id number] Tylenol/ibuprofen (3) Encounter for monitoring sulfasalazine therapy: Code(s): Z51.81 - Encounter for therapeutic drug level monitoring; Z79.899 - Other residential (current) drug therapy Plan: #Long-term Use of Sulphasalazine Discussed with patient the risks and benefits of sulfasalazine in the management of the rheumatic condition Benefits include: - Reduced pain, reduce mortality, maintenance of remission then reduction of flares Risks include: - GI upset, hemolysis (especially if G6PD deficiency), eosinophilia, headache, dizziness, rash, elevated LFTs Plan I spent 25 minutes reviewing the record and labs, taking a history, examining the patient, discussing the treatment plan, ordering diagnostic work up and documenting in the medical record Coding Level of Care Code Est Pt Level 3 (65899) Complex visit Add On G2211 Diagnoses Seronegative rheumatoid arthritis M06.00 LANE (nonalcoholic steatohepatitis) K75.81 Encounter for monitoring sulfasalazine therapy Z51.81; Z79.899
[2025-03-01 14:08] VITALS: BP 122/80; PULSE 80; O2SAT 95; BMI 27.5
--- OUTSIDE RECORDS SUMMARY | 2025-03-01 17:00 | XMS_ITS | Clinical Summary ---
Author Organization [employer] Address [address] [facility] [address] [place] [address] Care Team Providers Care Vice President Global Digital Marketing Name Role Phone Unavailable Primary Care Provider [...] Relevant to Health Maintenance Insurance DENTAL - [facility]
--- OUTSIDE RECORDS SUMMARY | 2025-03-01 17:00 | XMS_ITS | Encounter Summary ---
Author Organization [employer] Address [address] [place] [address] [address] [place] [address] Care Team Providers Care Estate Conservator Name Role Phone Unavailable Primary Care Provider Unavailabl e Reason for Visit * Reason Onset Date Comments status PA dentures 10/03/2024 Encounter Details Date Type Department Care Team (Late st Contact Info) Description 10/03/2024 Telephone [facility] [address] [place], [place] [phone] Sierra Crawford BDS [address] [place], [place] [phone] status PA dentures Social History Tobacco Use [...] 10/03/2024 4:18 PM EDT Patient is from [facility] and is checking in on status of dentures and PA. Please reach out to patient orclarification of treatment documented in this encounter Plan of Treatment Not on file documented as of this encounter Visit Diagnoses Not on filedocumented in this encounter
== END 2025-03-01 14:27 | disposition home or self-care (01) ==
LOC: HO.RHES 13:58
PROVIDERS: PCP Family Medicine; Visit Provider Student in an Organized Health Care Education/Training Program
DX: M06.00 Rheumatoid arthritis without rheumatoid factor, unspecified site (principal); K75.81 Nonalcoholic steatohepatitis (NASH); Z51.81 Encounter for therapeutic drug level monitoring; Z79.899 Other long term (current) drug therapy
CPT/HCPCS: 99213; G2211

== ENCOUNTER → 2025-03-01 13:57 | Outpatient (BNVA) | payer OTHER, SELFPAY | PROVIDERS: PCP Family Medicine; Visit Provider Student in an Organized Health Care Education/Training Program | DX: M06.00 Rheumatoid arthritis without rheumatoid factor, unspecified site (principal); K75.81 Nonalcoholic steatohepatitis (NASH); Z79.899 Other long term (current) drug therapy; Z51.81 Encounter for therapeutic drug level monitoring | CPT/HCPCS: 99212 ==